=== PATIENT | female | born 1955 | race Caucasian/White ===

== ENCOUNTER 2019-03-28 12:02 | Inpatient (IN) ==
[2019-03-28] MEDS ORDERED: Furosemide 40 MG/4 ML VIAL IVP ONE ×2 (12:20→19:00)
[2019-03-28 12:50] LABS: Basophils % 0.5 %; Eosinophils # 0.1 K/mcL (0.0-0.6); Eosinophils % 1.8 %; Hematocrit 41.8 % (35.3-44.9); Immature Granulocytes % 0.3 % (0-4); Lymphocytes # 0.8 K/mcL (0.6-4.6); Lymphocytes % 12.8 %; Mean Corpuscular HGB Conc 31.1 g/dL (31.6-35.5); Mean Corpuscular Hemoglobin 28.6 pg (28.0-33.3); Mean Corpuscular Volume 92.1 fL (83.0-100.0); Mean Platelet Volume 9.9 fL (9.4-12.4); Monocytes # 0.6 K/mcL (0.0-1.3); Platelet Count 201 K/mcL (140-400); Red Blood Count 4.54 M/mcL (3.82-4.97); Red Cell Distribution Width 13.9 % (11.5-14.5); Segmented Neutrophils % 75.6 %; White Blood Count 6.6 K/mcL (4.3-11.1)
[2019-03-28 13:02] LABS: INR 1.8; Prothrombin Time 20.5 Seconds (9.4-12.1)
[2019-03-28 13:05] LABS: Activated Partial Thrombo Time 37.7 Seconds (26.0-36.0)
--- NOTE | 2019-03-28 13:07 | Emergency Department Note ---
Disposition Clinical Impression: CHF exacerbation Qualifiers: Heart failure type: unspecified Qualified Code(s): I50.9 - Heart failure, unspecified Disposition: Admitted As Inpatient Condition: Good Time of Disposition: 13:44 General Adult HPI - General Chief complaint: ED Shortness of Breath/Dyspnea Stated complaint: "CHF" Time Seen by Provider: 03/28/19 12:16 Source: patient Mode of arrival: private vehicle Limitations: no limitations Nursing Notes Reviewed: Yes Vital Signs Reviewed: Yes - History of Present Illness HPI Narrative: 63-year-old female with a past medical history of mitral valve replacement, congestive heart failure, diabetes that reports a 30 pound weight gain in the last 6 weeks. She was seen at her primary care physician's office who sent her here for further treatment. Patient states she feels very swollen and very short of breath, she cannot lie down at all. She states that it worked for her helping her she would not be able to get up and walk around. She notes that this all started when they switched her from Eliquis to warfarin approximate 6 weeks ago. Patient also notes that she has significant swelling from her abdomen all the way down to her calves. She states that she used to h ave significant swelling in her ankles however the 120 mg of Lasix she takes per day has helped with the swelling in her ankles but nowhere else. She also notes that she has had more swelling on the right side than the left side this is chronic for her. She also reports chills all summer. Pain Scale: 10 - Related Data Home Medications Medication Instructions Recorded Confirmed Apixaban [Eliquis] 5 mg PO BID 03/22/19 03/22/19 Atorvastatin [Lipitor] 20 mg PO HS 03/22/19 03/22/19 Bumetanide [Bumex] 1 mg PO NOW 03/22/19 03/22/19 Furosemide [Lasix] 40 mg PO BID 03/22/19 03/22/19 Lisinopril [Zestril] 10 mg PO DAILY 03/22/19 03/22/19 Pioglitazone [Actos] 30 mg PO DAILY 03/22/19 03/22/19 Allergies Allergy/AdvReac Type Severity Reaction Status Date / Time aspirin Allergy See Verified 10/23/16 14:22 Comments cephalexin [From Keflex] Allergy Hives Verified 10/23/16 17:30 soy AdvReac Diarrhea Verified 10/23/16 15:50 Review of Systems: In addition to that documented in the HPI above, the additional ROS was obtained: Constitutional: Denies fevers or chills Eyes: Denies vision changes ENMT: Denies sore throat CV: Denies chest pain now or before Resp: Reports significant SOB GI: Denies vomiting or diarrhea : Denies painful urination MSK: Denies recent trauma Skin: Denies new rashes Neuro: Denies new numbness or tingling or weakness Endocrine: Denies unexpected weight loss Reports 30lbs weight gain Heme: Denies bleeding disorders Past Medical History - Past Medical History Medical history: Reports: arthritis, cardiomyopathy, CHF, COPD, diabetes, hypertension Surgical history: Reports: heart valve replacement (Mitral valve replacement and tricuspid repair 10/05/2016, [place]), pacemaker/AICD Psychiatric history: Reports: no psych history ROLL THREADER OPERATOR history: Reports: no 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 Appears anxious, breathing shallow, but saturation is acceptable in upper 90s. Well developed, well nourished. Head: atraumatic, normocephalic. ENT: No conjunctival injection, no scleral icterus. PERRLA. EOMI. Oropharynx non- erythematous. mucous membranes moist. Neuro: No focal deficits, no speech deficit, no facial droop, mentating well. BUE/BLE Str 5/5. Pulm: Lungs CTAB A/P. No wheezes, rales, ronchi. Cardio: Tachycardic. Chest not tender to palpation. Abd: Soft, with some areas in the RLQ/LLQ/Suprapubic area that have thickened skin but non-surgical abdomen. Bilateral lower abdomen swelling, right more than left, which she states is chronic. She denies any specific abdominal pain. Extremities: Radial pulses 2+ luisito, bilateral lower extremity swelling to level of hips 3+ pitting edema which spares the ankles. Skin: Her skin is diffiusely dry with flaking. There are two areas of blistering on her lateral left lower leg with serous fluid contained under a layer of epithelium. There are several abrasions over her luisito lower extremities. No active bleeding. No evidence of infection. Psych: Appropriate mood and affect. Answers questions appropriately. Cooperative with exam. - General Limitations: no limitations General appearance: alert, in no apparent distress Course Vital Signs Temperature 97.5 F L 03/28/19 12:12 Pulse Rate 106 03/28/19 12:12 Respiratory Rate 22 03/28/19 12:12 Blood Pressure 110/69 03/28/19 12:12 O2 Sat by Pulse Oximetry 97 03/28/19 12:12 Temperature 97.5 F L 03/28/19 12:12 Pulse Rate 96 03/28/19 14:04 Respiratory Rate 20 03/28/19 14:04 Blood Pressure 111/64 03/28/19 14:04 O2 Sat by Pulse Oximetry 98 03/28/19 14:04 Oxygen Delivery Oxygen Delivery Room Air Medical Decision Making - MDM Narrative Medical decision making narrative: 63F with Pmhx of CHF, mitral valve replacement, on warfarin that complains of 30lb weight gain over the last 6 weeks and diffuse swelling. She was sent from PCP to be admitted as she is on maximal outpatient therapy with 120mg of PO lasix per day. Will obtain labs, give IV lasix, and admit to hospitalist for diuresis therapy. Patient was admitted to the hospitalist Dr. Grace, who agreed to accept the patient to his service. Patient was given 40 mg of IV Lasix. Patient's troponin was negative. Chest x-ray was consistent with congestive heart failure. BNP remained elevated in the 700s. Kidney function was around baseline. Results of the workup including any imaging and/or labwork was shared with the patient at bedside. Patient was given an opportunity to ask questions at bedside and all of their concerns were addressed. Patient verbalized understanding and agreement with plan of care. Pt remained stable while in the department. - Medical Records Medical records reviewed: Yes I reviewed the patient's medical records. - Lab Data Lab results reviewed: Yes I reviewed the patient's lab results. Result diagrams: 03/28/19 12:38 03/28/19 12:38 Lab Results 03/28/19 03/28/19 03/28/19 Range/Units 12:38 12:38 12:38 WBC 6.6 (4.3-11.1) K/mcL RBC 4.54 (3.82-4.97) M/mcL Hgb 13.0 (11.5-15.4) g/dL Hct 41.8 (35.3-44.9) % MCV 92.1 (83.0-100.0) fL MCH 28.6 (28.0-33.3) pg MCHC 31.1 L (31.6-35.5) g/dL RDW 13.9 (11.5-14.5) % Plt Count 201 (140-400) K/mcL MPV 9.9 (9.4-12.4) fL Immature Gran % 0.3 (0-4) % Seg Neutrophils % 75.6 % Lymphocytes % 12.8 % Monocytes % 9.0 % Eosinophils % 1.8 % Basophils % 0.5 % Neutrophils # 5.0 (1.6-8.9) K/mcL Lymphocytes # 0.8 (0.6-4.6) K/mcL Monocytes # 0.6 (0.0-1.3) K/mcL Eosinophils # 0.1 (0.0-0.6) K/mcL Basophils # 0.0 (0.0-0.2) K/mcL PT 20.5 H (9.4-12.1) Seconds INR 1.8 APTT 37.7 H (26.0-36.0) Seconds Sodium (136-145) mEq/L Potassium (3.5-5.1) mEq/L Chloride (98-107) mEq/L Carbon Dioxide (23-29) mEq/L BUN (8-23) mg/dL Creatinine (0.60-1.20) mg/dL Est GFR ( Amer) (> 60) Est GFR (Non-Af Amer) (> 60) BUN/Creatinine Ratio (6-26) Glucose (70-105) mg/dL Calculated Osmolality (280-300) Calcium (8.6-10.3) mg/dL Total Bilirubin (0.3-1.0) mg/dL Direct Bilirubin (0.0-0.2) mg/dL Indirect Bilirubin (0.0-1.2) mg/dL AST (13-39) Units/L ALT (7-52) Units/L Alkaline Phosphatase (34-104) Units/L Troponin I (< 0.04) ng/mL B-Natriuretic Peptide 727 H (Less than 100) pg/mL Serum Total Protein (6.4-8.9) g/dL Albumin (3.5-5.7) g/dL Globulin (2.4-3.5) g/dL Albumin/Globulin Ratio (1.1-2.2) Lipase (11-82) Units/L 03/28/19 Range/Units 12:38 WBC (4.3-11.1) K/mcL RBC (3.82-4.97) M/mcL Hgb (11.5-15.4) g/dL Hct (35.3-44.9) % MCV (83.0-100.0) fL MCH (28.0-33.3) pg MCHC (31.6-35.5) g/dL RDW (11.5-14.5) % Plt Count (140-400) K/mcL MPV (9.4-12.4) fL Immature Gran % (0-4) % Seg Neutrophils % % Lymphocytes % % Monocytes % % Eosinophils % % Basophils % % Neutrophils # (1.6-8.9) K/mcL Lymphocytes # (0.6-4.6) K/mcL Monocytes # (0.0-1.3) K/mcL Eosinophils # (0.0-0.6) K/mcL Basophils # (0.0-0.2) K/mcL PT (9.4-12.1) Seconds INR APTT (26.0-36.0) Seconds Sodium 136 (136-145) mEq/L Potassium 3.8 (3.5-5.1) mEq/L Chloride 97 L (98-107) mEq/L Carbon Dioxide 30 H (23-29) mEq/L BUN 18 (8-23) mg/dL Creatinine 1.53 H (0.60-1.20) mg/dL Est GFR ( Amer) 42 L (> 60) Est GFR (Non-Af Amer) 35 L (> 60) BUN/Creatinine Ratio 12 (6-26) Glucose 270 H (70-105) mg/dL Calculated Osmolality 293 (280-300) Calcium 9.2 (8.6-10.3) mg/dL Total Bilirubin 0.9 (0.3-1.0) mg/dL Direct Bilirubin 0.3 H (0.0-0.2) mg/dL Indirect Bilirubin 0.6 (0.0-1.2) mg/dL AST 14 (13-39) Units/L ALT 8 (7-52) Units/L Alkaline Phosphatase 126 H (34-104) Units/L Troponin I 0.03 (< 0.04) ng/mL B-Natriuretic Peptide (Less than 100) pg/mL Serum Total Protein 6.6 (6.4-8.9) g/dL Albumin 3.7 (3.5-5.7) g/dL Globulin 2.9 (2.4-3.5) g/dL Albumin/Globulin Ratio 1.3 (1.1-2.2) Lipase 30 (11-82) Units/L - Radiology Data Radiology results reviewed: Yes I reviewed the patient's radiology results. Chest X-Ray 03/28/19 12:20 IMPRESSION: Limited low lung volume portable chest x-ray demonstrating bibasilar airspace opacity, most likely atelectasis. No acute process demonstrated otherwise. D/ / Milton Fu MD / Milton Fu MD Interpreting Provider: Milton Fu MD - EKG Data EKG #1 EKG attestation: Yes I reviewed and interpreted this EKG. EKG results narrative: Heart rate 103, rhythm sinus tachycardia, axis left. He had 146, QRS 168 and prolonged, QTC 519 and prolonged. RSR pattern noted in lead V1 and V2 and with prolonged QRS this is consistent with a right bundle branch block. No cl inically significant ST elevation or depression by sgarbosa's criteria. When compared with previous EKG dated 03/22/2019 there are no significant changes.
[2019-03-28 13:14] LABS: Troponin I 0.03 ng/mL (< 0.04)
[2019-03-28 13:15] LABS: Albumin 3.7 g/dL (3.5-5.7); Albumin/Globulin Ratio 1.3 (1.1-2.2); Bilirubin,Direct 0.3 mg/dL (0.0-0.2); Bilirubin,Indirect 0.6 mg/dL (0.0-1.2); Bilirubin,Total 0.9 mg/dL (0.3-1.0); Calcium 9.2 mg/dL (8.6-10.3); Globulin 2.9 g/dL (2.4-3.5); Potassium 3.8 mEq/L (3.5-5.1); Total Protein 6.6 g/dL (6.4-8.9)
[2019-03-28] MEDS ORDERED: *HR* Promethazine 25 MG/ML VIAL IVP PRN (14:03)
[2019-03-28] MEDS ORDERED: Ondansetron ODT 4 MG TAB.RAPDIS SL PRN (14:03)
[2019-03-28] MEDS ORDERED: Naloxone 0.4 MG/ML INJ IVP PRN (14:03)
--- NOTE | 2019-03-28 14:07 | Emergency Department Note ---
Disposition Clinical Impression: CHF exacerbation Qualifiers: Heart failure type: unspecified Qualified Code(s): I50.9 - Heart failure, unspecified Disposition: Admitted As Inpatient Condition: Good Time of Disposition: 14:07 General Adult HPI - General Chief complaint: ED Shortness of Breath/Dyspnea Stated complaint: "CHF" Time Seen by Provider: 03/28/19 12:16 Source: patient Mode of arrival: private vehicle Limitations: no limitations - History of Present Illness Pain Scale: 0 - Related Data Home Medications Medication Instructions Recorded Confirmed Apixaban [Eliquis] 5 mg PO BID 03/22/19 03/22/19 Atorvastatin [Lipitor] 20 mg PO HS 03/22/19 03/22/19 Bumetanide [Bumex] 1 mg PO NOW 03/22/19 03/22/19 Furosemide [Lasix] 40 mg PO BID 03/22/19 03/22/19 Lisinopril [Zestril] 10 mg PO DAILY 03/22/19 03/22/19 Pioglitazone [Actos] 30 mg PO DAILY 03/22/19 03/22/19 Allergies Allergy/AdvReac Type Severity Reaction Status Date / Time aspirin Allergy See Verified 10/23/16 14:22 Comments cephalexin [From Keflex] Allergy Hives Verified 10/23/16 17:30 soy AdvReac Diarrhea Verified 10/23/16 15:50 Past Medical History - Past Medical History Medical history: Reports: arthritis, cardiomyopathy, CHF, COPD, diabetes, hypertension Surgical history: Reports: heart valve replacement (Mitral valve replacement and tricuspid repair 10/05/2016, [place]), pacemaker/AICD Psychiatric history: Reports: no psych history EQUESTRIAN TRAINER history: Reports: no EQUESTRIAN TRAINER history - Social History Smoking Status: Never smoker Smokeless Tobacco Status: No Alcohol use: Reports: none Drug use: Reports: none Physical Exam - General Limitations: no limitations General appearance: alert, in no apparent distress Course Vital Signs Temperature 97.5 F L 03/28/19 12:12 Pulse Rate 106 03/28/19 12:12 Respiratory Rate 22 03/28/19 12:12 Blood Pressure 110/69 03/28/19 12:12 O2 Sat by Pulse Oximetry 97 03/28/19 12:12 Temperature 97.5 F L 03/28/19 12:12 Pulse Rate 96 03/28/19 14:04 Respiratory Rate 20 03/28/19 14:04 Blood Pressure 111/64 03/28/19 14:04 O2 Sat by Pulse Oximetry 98 03/28/19 14:04 Oxygen Delivery Oxygen Delivery Room Air Medical Decision Making - Lab Data Result diagrams: 03/28/19 12:38 03/28/19 12:38 Lab Results 03/28/19 03/28/19 03/28/19 Range/Units 12:38 12:38 12:38 WBC 6.6 (4.3-11.1) K/mcL RBC 4.54 (3.82-4.97) M/mcL Hgb 13.0 (11.5-15.4) g/dL Hct 41.8 (35.3-44.9) % MCV 92.1 (83.0-100.0) fL MCH 28.6 (28.0-33.3) pg MCHC 31.1 L (31.6-35.5) g/dL RDW 13.9 (11.5-14.5) % Plt Count 201 (140-400) K/mcL MPV 9.9 (9.4-12.4) fL Immature Gran % 0.3 (0-4) % Seg Neutrophils % 75.6 % Lymphocytes % 12.8 % Monocytes % 9.0 % Eosinophils % 1.8 % Basophils % 0.5 % Neutrophils # 5.0 (1.6-8.9) K/mcL Lymphocytes # 0.8 (0.6-4.6) K/mcL Monocytes # 0.6 (0.0-1.3) K/mcL Eosinophils # 0.1 (0.0-0.6) K/mcL Basophils # 0.0 (0.0-0.2) K/mcL PT 20.5 H (9.4-12.1) Seconds INR 1.8 APTT 37.7 H (26.0-36.0) Seconds Sodium (136-145) mEq/L Potassium (3.5-5.1) mEq/L Chloride (98-107) mEq/L Carbon Dioxide (23-29) mEq/L BUN (8-23) mg/dL Creatinine (0.60-1.20) mg/dL Est GFR ( Amer) (> 60) Est GFR (Non-Af Amer) (> 60) BUN/Creatinine Ratio (6-26) Glucose (70-105) mg/dL Calculated Osmolality (280-300) Calcium (8.6-10.3) mg/dL Total Bilirubin (0.3-1.0) mg/dL Direct Bilirubin (0.0-0.2) mg/dL Indirect Bilirubin (0.0-1.2) mg/dL AST (13-39) Units/L ALT (7-52) Units/L Alkaline Phosphatase (34-104) Units/L Troponin I (< 0.04) ng/mL B-Natriuretic Peptide 727 H (Less than 100) pg/mL Serum Total Protein (6.4-8.9) g/dL Albumin (3.5-5.7) g/dL Globulin (2.4-3.5) g/dL Albumin/Globulin Ratio (1.1-2.2) Lipase (11-82) Units/L 03/28/19 Range/Units 12:38 WBC (4.3-11.1) K/mcL RBC (3.82-4.97) M/mcL Hgb (11.5-15.4) g/dL Hct (35.3-44.9) % MCV (83.0-100.0) fL MCH (28.0-33.3) pg MCHC (31.6-35.5) g/dL RDW (11.5-14.5) % Plt Count (140-400) K/mcL MPV (9.4-12.4) fL Immature Gran % (0-4) % Seg Neutrophils % % Lymphocytes % % Monocytes % % Eosinophils % % Basophils % % Neutrophils # (1.6-8.9) K/mcL Lymphocytes # (0.6-4.6) K/mcL Monocytes # (0.0-1.3) K/mcL Eosinophils # (0.0-0.6) K/mcL Basophils # (0.0-0.2) K/mcL PT (9.4-12.1) Seconds INR APTT (26.0-36.0) Seconds Sodium 136 (136-145) mEq/L Potassium 3.8 (3.5-5.1) mEq/L Chloride 97 L (98-107) mEq/L Carbon Dioxide 30 H (23-29) mEq/L BUN 18 (8-23) mg/dL Creatinine 1.53 H (0.60-1.20) mg/dL Est GFR ( Amer) 42 L (> 60) Est GFR (Non-Af Amer) 35 L (> 60) BUN/Creatinine Ratio 12 (6-26) Glucose 270 H (70-105) mg/dL Calculated Osmolality 293 (280-300) Calcium 9.2 (8.6-10.3) mg/dL Total Bilirubin 0.9 (0.3-1.0) mg/dL Direct Bilirubin 0.3 H (0.0-0.2) mg/dL Indirect Bilirubin 0.6 (0.0-1.2) mg/dL AST 14 (13-39) Units/L ALT 8 (7-52) Units/L Alkaline Phosphatase 126 H (34-104) Units/L Troponin I 0.03 (< 0.04) ng/mL B-Natriuretic Peptide (Less than 100) pg/mL Serum Total Protein 6.6 (6.4-8.9) g/dL Albumin 3.7 (3.5-5.7) g/dL Globulin 2.9 (2.4-3.5) g/dL Albumin/Globulin Ratio 1.3 (1.1-2.2) Lipase 30 (11-82) Units/L Attestation Statement - Attestation Attestation: I reviewed the residents documentation and agree with the residents assessment and plan of care. I have personally had face to face time with the patient. (Brief History, Brief Exam, and MDM) I personally supervised and was present for the argueta/critical portions of the following procedures completed by the resident: EKG 63 year old female present to the eD with complaints to CHF and state that her oral lasix therapy is not working. She does have a baseline elevation to her BNP and appaers to be fluid overloaded. She however is not hypoxic. We will admit for IV lasix therpay and admission tto medicine.
[2019-03-28] MEDS ORDERED: *HR* Dextrose 50 % in Water (Syg) 50 ML SYRINGE IVP PRN (16:03)
[2019-03-28] MEDS ORDERED: Dextrose Gel 15 GM/37.5 ML TUBE PO PRN ×2 (16:03)
[2019-03-28] MEDS ORDERED: D5% in Water 1,000 ML IVC PRN (16:03)
--- NOTE | 2019-03-28 16:08 | Internal Med History&Physical ---
<Richard Best R - Last Filed: 03/28/19 17:54> Date of Encounter: 03/28/19 Time of Encounter: 15:50 Internal Medicine - H&P: HPI Chief complaint: SOB Admitted From: Home History of present illness: Ms. Arteaga is a 63 year old female presented to the Emergency room with SOB, Orthopnea and fluid retention. Patient reports 30 lbs weight gain since she was changed to warfarin 6 weeks ago. Changed to warfarin from eliquis at that time due to cost. However, patient expressed concerns for fluid retention and placed back on eliquis 2 weeks ago. On anticoagulation for history of mitral valve replacement and tricuspid repair. Reports swelling in her abdomen down to her ankles. Repors orthopnea, SOB. Has been on 120 mg PO Lasixs, and 1 mg bumex PO with little improvement. Reported feeling a chill all summer. Denies Fever, chest pain, cough, Nausea, vomiting, constipation, dysuria, light headedness, painful extremities. Doesn't follow a fluid restrictive diet or salt restricive diet, Ate an encore dinner last night. History of diabetes and refuses to take insulin because it makes here feel nauseous. History CHF with AICD in place, also has a history of COPD but is a non-smoker and does not use any home inhalers or oxygen. Past Med Surg Social Fam HX - Past Medical History Attestation: Yes The following information was validated with the patient. Source: patient, old records reviewed, nursing notes reviewed Medical history: arthritis, cardiomyopathy, CHF, COPD, diabetes, hypertension, myocardial infarction, pulmonary embolus, valvular heart disease (mitral valve replacement ) Additional medical history: nueropathy,arrythimia, Psychiatric history: no psych history - Past Surgical History Surgical History: heart valve replacement (Mitral valve replacement and tricuspid repair 10/05/2016, [place]), pacemaker/AICD Additional surgical history: defibrillator, 2017 mitral valve replaced and tricuspid repair - Social History Smoking Status: Never smoker Smokeless Tobacco Status: No Alcohol use: none Drug use: none Activity Level: Uses cane/walker Internal Medicine - H&P: Meds Apixaban [Eliquis] 5 mg PO BID 03/22/19 [History] Atorvastatin [Lipitor] 20 mg PO HS 03/22/19 [History] Bumetanide [Bumex] 1 mg PO NOW 03/22/19 [History] Furosemide [Lasix] 40 mg PO BID 03/22/19 [History] Lisinopril [Zestril] 10 mg PO DAILY 03/22/19 [History] Pioglitazone [Actos] 30 mg PO DAILY 03/22/19 [History] Allergy/AdvReac Type Severity Reaction Status Date / Time cephalexin [From Keflex] Allergy Hives Verified 03/28/19 18:43 Warfarin Allergy See Verified 03/28/19 18:43 Comments aspirin AdvReac Nose Bleed Verified 03/28/19 18:43 All Systems PM: A 10-system review of systems was performed and is negative for pertinent findings except as documented above in the HPI. - Constitutional Constitutional: chills, no fever(s) - EENT Eyes: no blurry vision, no change in vision - Cardiovascular Cardiovascular ROS IM: dyspnea, orthopnea, no chest pain - Respiratory Respiratory: dyspnea, no cough, no wheezing - Gastrointestinal Gastrointestinal: no abdominal pain, no constipation, no diarrhea, no nausea, no vomiting - Genitourinary Genitourinary: no difficulty urinating - Musculoskeletal Musculoskeletal ROS IM: numbness - Integumentary Integumentary IM: skin ulcer - Neurological Neurological ROS: numbness, no weakness - Psychiatric Psychiatric: no anxiety - Endocrine Endocrine IM: no excessive sweating - Hematologic/Lymphatic Hematologic/Lymphatic: no easy bleeding, no easy bruising - Allergic/Immunologic Allergic/Immunologic: no tongue swelling, no itchy eyes - Constitutional Vitals: Temp Pulse Resp BP Pulse Ox 97.9 F 103 18 106/75 96 03/28/19 15:58 03/28/19 15:58 03/28/19 15:58 03/28/19 15:58 03/28/19 15:58 Exam: Gen: AOx3 in no acute distress Eyes: ROBERT, EOMI with no conjunctivitis Throat: Moist mucous membranes, no pharyngeal erythema or tonsilar exudate CV: Tachycardic with regular rhythmn. No murmurs Resp: CTA in all lung rios with no crackles or rhales GI: Soft, non-surgical abdomen. Morbid obesity, with increased edema. No organomegally, or masses palpated. Neuro: CN II-XII intact with no focal deficits Ext: 3+ luisito LE edema. DP 2/4 luisito Derm: Has fungal infection under abdominal tissue. Stasis Ulcers in luisito lateral shins. Internal Med - H&P Results - Labs CBC & Chem 7: 03/28/19 12:38 03/28/19 12:38 Labs: Short CBC 03/28/19 Range/Units 12:38 WBC 6.6 (4.3-11.1) K/mcL Hgb 13.0 (11.5-15.4) g/dL Hct 41.8 (35.3-44.9) % Plt Count 201 (140-400) K/mcL Neutrophils # 5.0 (1.6-8.9) K/mcL BMP 03/28/19 12:38 Sodium 136 Potassium 3.8 Chloride 97 L Carbon Dioxide 30 H BUN 18 Creatinine 1.53 H Glucose 270 H Calcium 9.2 Cardiac Enzymes 03/28/19 Range/Units 12:38 Troponin I 0.03 (< 0.04) ng/mL Liver Function 03/28/19 Range/Units 12:38 Total Bilirubin 0.9 (0.3-1.0) mg/dL Direct Bilirubin 0.3 H (0.0-0.2) mg/dL AST 14 (13-39) Units/L ALT 8 (7-52) Units/L Alkaline Phosphatase 126 H (34-104) Units/L Albumin 3.7 (3.5-5.7) g/dL - Impressions ITS Impressions Chest X-Ray 03/28/19 12:20 IMPRESSION: Limited low lung volume portable chest x-ray demonstrating bibasilar airspace opacity, most likely atelectasis. No acute process demonstrated otherwise. D/ / Milton Fu MD / Milton Fu MD Interpreting Provider: Milton Fu MD - Assessment and Plan (1) CHF exacerbation Current Visit: Yes Status: Acute Assessment and plan: - Increased SOB, orthopnea, and fluid retention at admission -Previous diagnosis of CHF in 2012, diabetes, HTN, HLD - Takes lasix, atorvastatin, and lisinopril -Mitral Valve replacement in 2016 - Stress test in 2017 showed EF 35%, large sized infarct in the inferior and inferiolateral wall, LV severly dilated - Chest X ray 03/28 limited low lung volume portable chest x-ray demonstrating bibasilar airspace opacity, most likely atelectasis. No acute process demonstrated otherwise - BNP 727 on 03/28 Plan: -Start IV Lasixs -Echocardiogram scheduled for tomorrow - Cont home lasix. May need to stop if creatinine rises -Strict I/O -Cardiac diet - Fluid restrcitive diet to 1.5 L -Can assess need for Beta [facility] prior to discharge Qualifiers: Heart failure type: unspecified Qualified Code(s): I50.9 - Heart failure, unspecified (2) CULLEN (acute kidney injury) Current Visit: Yes Status: Acute Assessment and plan: -Creatinine 1.53 and eGFR 35 today up from 1.41 in 11/03 - Increased fluid retention in Luisito LE and abdomen - Takes 120 mg Lasixs and 1 mg bumex PO at home - Nephrology consulted Plan -Urine electrolytes ordered - Start IV Lasix as above, however may need to stop if worsening creatinine and urine output - Renally dose medicationa and avoid nephrotoxic medications when possible (3) Diabetes Current Visit: Yes Status: Acute Assessment and plan: - Chronic Diabetes on pioglitazone - POC 270 on 03/28 Plan - Stop pioglitazone, - start insulin Qualifiers: Diabetes mellitus type: type 2 Qualified Code(s): E11.9 - Type 2 diabetes mellitus without complications (4) HLD (hyperlipidemia) Current Visit: Yes Status: Acute Assessment and plan: - Cont home lipitor Qualifiers: Hyperlipidemia type: unspecified Qualified Code(s): E78.5 - Hyperlipidemia, unspecified (5) HTN (hypertension) Current Visit: Yes Status: Acute Assessment and plan: - Chronic HTN on lisinopril and lasix Plan - Cont Lisinopril, may need to discontinue if creatinine rises - Cont IV lasix Qualifiers: Hypertension type: unspecified Qualified Code(s): I10 - Essential (primary) hypertension (6) Mitral valve replaced Current Visit: Yes Status: Acute Assessment and plan: - Mitral valve replacement and tricuspid repair in 2017 Plan: -Cont Eliquis (7) DVT prophylaxis Current Visit: Yes Status: Acute Assessment and plan: Eliquis - Time Spent With Patient Total time spent is greater than 50% in coordination of care (as documented) at patient's floor/unit and/or counseling patient: <Maddy Mar - Last Filed: 03/28/19 18:45> Date of Encounter: 03/28/19 Internal Medicine - H&P: HPI History of present illness: Ms. Arteaga is a 63 year old female All Systems PM: A 10-system review of systems was performed and is negative for pertinent findings except as documented above in the HPI. - Constitutional Vitals: Temp Pulse Resp BP Pulse Ox 97.9 F 103 18 106/75 96 03/28/19 15:58 03/28/19 15:58 03/28/19 15:58 03/28/19 15:58 03/28/19 15:58 Internal Med - H&P Results - Labs CBC & Chem 7: 03/28/19 12:38 03/28/19 12:38 Labs: Short CBC 03/28/19 Range/Units 12:38 WBC 6.6 (4.3-11.1) K/mcL Hgb 13.0 (11.5-15.4) g/dL Hct 41.8 (35.3-44.9) % Plt Count 201 (140-400) K/mcL Neutrophils # 5.0 (1.6-8.9) K/mcL BMP 03/28/19 12:38 Sodium 136 Potassium 3.8 Chloride 97 L Carbon Dioxide 30 H BUN 18 Creatinine 1.53 H Glucose 270 H Calcium 9.2 Cardiac Enzymes 03/28/19 Range/Units 12:38 Troponin I 0.03 (< 0.04) ng/mL Liver Function 03/28/19 Range/Units 12:38 Total Bilirubin 0.9 (0.3-1.0) mg/dL Direct Bilirubin 0.3 H (0.0-0.2) mg/dL AST 14 (13-39) Units/L ALT 8 (7-52) Units/L Alkaline Phosphatase 126 H (34-104) Units/L Albumin 3.7 (3.5-5.7) g/dL - Impressions ITS Impressions Chest X-Ray 03/28/19 12:20 IMPRESSION: Limited low lung volume portable chest x-ray demonstrating bibasilar airspace opacity, most likely atelectasis. No acute process demonstrated otherwise. D/ / Milton Fu MD / Milton Fu MD Interpreting Provider: Milton Fu MD - Time Spent With Patient Total time spent is greater than 50% in coordination of care (as documented) at patient's floor/unit and/or counseling patient: - Attending Attestation I saw evaluated and examined this patient and reviewed objective data including labs and my medical decision-making was reviewed with the Resident Physician/Medical Student. I agree with the documented findings, disposition and treatment plan as described except to any changes set forth below. We independently had [id number] contact with the patient.
[2019-03-28] MEDS: Insulin LISPRO 300 UNITS/3 ML VIAL SQ SCH ×2 (17:43→22:31)
[2019-03-28] MEDS: Nystatin POWDER 30 GM BOTTLE TP SCH ×2 (18:02→20:45)
[2019-03-28] MEDS: Apixaban 5 MG TABLET PO SCH (20:43)
[2019-03-28] MEDS ORDERED: Perflutren Lipid Microsphere 1.3 ML in 0.9 % Sodium Chloride 8.7 ML IVP ONE (23:18)
[2019-03-28] MEDS: Melatonin 3 MG TABLET PO SCH (23:28)
[2019-03-29 00:06] LABS: Potassium,Urine 14.4 mEq/L; Sodium, Urine 64.7 mEq/L
[2019-03-29 00:07] LABS: Creatinine,Urine 46 mg/dL; Microalbum/Creatinine Ratio,Ur 46 mcg/mg (Less than 30); Microalbumin,Urine 21 mg/L
[2019-03-29 02:21] LABS: Basophils % 0.4 %; Eosinophils # 0.1 K/mcL (0.0-0.6); Hematocrit 37.3 % (35.3-44.9); Immature Granulocytes % 0.4 % (0-4); Lymphocytes % 19.2 %; Mean Corpuscular HGB Conc 32.2 g/dL (31.6-35.5); Mean Corpuscular Volume 90.1 fL (83.0-100.0); Mean Platelet Volume 9.9 fL (9.4-12.4); Monocytes # 0.6 K/mcL (0.0-1.3); Monocytes % 11.1 %; Neutrophils # 3.3 K/mcL (1.6-8.9); Platelet Count 183 K/mcL (140-400); Red Blood Count 4.14 M/mcL (3.82-4.97); Red Cell Distribution Width 13.7 % (11.5-14.5); Segmented Neutrophils % 66.9 %
[2019-03-29 02:30] LABS: INR 1.8; Prothrombin Time 20.1 Seconds (9.4-12.1)
[2019-03-29 02:43] LABS: Albumin 3.4 g/dL (3.5-5.7); Albumin/Globulin Ratio 1.3 (1.1-2.2); Calcium 9.1 mg/dL (8.6-10.3); Globulin 2.7 g/dL (2.4-3.5); Potassium 3.5 mEq/L (3.5-5.1); Total Protein 6.1 g/dL (6.4-8.9)
[2019-03-29 02:58] LABS: Thyroid Stimulating Hormone 4.001 mcIU/mL (0.340-5.600)
[2019-03-29] MEDS ORDERED: Acetaminophen IV 1,000 MG/100 ML INFUS..BTL IVPB ONE (04:59)
--- NOTE | 2019-03-29 07:35 | Internal Med Progress Note ---
<Richard Best R - Last Filed: 03/29/19 09:30> Hospitalist Progress Note - Encounter Date of Encounter: 03/29/19 Time of Encounter: 08:30 - Subjective Interval History: Patient seen and examined. No acute events reported overnight. Reports still feeling SOB, and having orthopnea. Has noticed some decreased swelling in her abdomen. Deneis any fevers, chills, chest pain, tachycardia, nausea, vomiting, diarrhea, constipation, or dysuria. - Exam Vitals: Temp Pulse Resp BP Pulse Ox 97.5 F L 74 18 110/76 92 03/29/19 07:10 03/29/19 07:10 03/29/19 07:10 03/29/19 07:10 03/29/19 07:10 Exam: Gen: AOx3 Eyes:ROBERT, EOMI with no conjunctivitis Throat: Moist mucous membranes with no oral ulcers or pharyngeal erythema CV: RRR with no murmur. 3+ pitting edema in luisito LE. Abdominal swelling present. Resp: SOB upon sitting up for lung exam. Shallow breath sounds with no wheeze or crackles GI:Soft, non-tender, edematous abdomen. Morbid obesity. No organomegally or masses palpated Neuro: CN II-XII intact with no focal deficits Ext: 3+ pitting edema in luisito LE. DP 2/4 in luisito LE. Derm: Stasis ulcers present on luisito shins. Fungal rash present under abdominal tissue. - Assessment and Plan (1) CHF exacerbation Current Visit: Yes Status: Acute Assessment and Plan: - Increased SOB, orthopnea, and fluid retention at admission -Previous diagnosis of CHF in 2012, diabetes, HTN, HLD - Takes lasix, atorvastatin, and lisinopril -Mitral Valve replacement in 2016 - Stress test in 2017 showed EF 35%, large sized infarct in the inferior and inferiolateral wall, LV severly dilated - Chest X ray 03/28 limited low lung volume portable chest x-ray demonstrating bibasilar airspace opacity, most likely atelectasis. No acute process demonstrated otherwise - BNP 727 on 03/28 - TSH 4 and free T4 1.54 on 03/29 Plan: -Start IV Lasixs -Echocardiogram scheduled for today - Cont IV lasix. May need to stop if creatinine rises -Strict I/O -Cardiac diet - Fluid restrcitive diet to 1.5 L -Can assess need for Beta [facility] prior to discharge (2) CULLEN (acute kidney injury) Current Visit: Yes Status: Acute Assessment and Plan: -Creatinine 1.38 and eGFR 39 today down from 1.53 creatinine 03/28 - Increased fluid retention in Luisito LE and abdomen - Takes 120 mg Lasixs and 1 mg bumex PO at home - Nephrology consulted - Urine electrolyte panel showed urine creatinine 46, urine microalbumin 21, urine Na 64.7, Urine K 14.4, and urine total protein 9 Plan - Cont IV Lasix as above, however may need to stop if worsening creatinine and urine output - Renally dose medicationa and avoid nephrotoxic medications when possible (3) Diabetes Current Visit: Yes Status: Acute Assessment and Plan: - Chronic Diabetes on pioglitazone - POC 142 today Plan - cont insulin (4) HLD (hyperlipidemia) Current Visit: Yes Status: Acute Assessment and Plan: - Cont home lipitor (5) HTN (hypertension) Current Visit: Yes Status: Acute Assessment and Plan: - Chronic HTN on lisinopril and lasix Plan - Cont Lisinopril, may need to discontinue if creatinine rises - Cont IV lasix (6) Mitral valve replaced Current Visit: Yes Status: Acute Assessment and Plan: - Mitral valve replacement and tricuspid repair in 2017 Plan: -Cont Eliquis (7) DVT prophylaxis Current Visit: Yes Status: Acute Assessment and Plan: eliquis DVT Prophylaxis: eliquis - Time Spent with Patient Total time spent is greater than 50% in coordination of care (as documented) at patient's floor/unit and/or counseling patient: Internal Medicine: Result - Labs CBC & Chem 7: 03/29/19 01:47 03/29/19 01:47 Labs: Short CBC 03/28/19 03/29/19 Range/Units 12:38 01:47 WBC 6.6 5.0 (4.3-11.1) K/mcL Hgb 13.0 12.0 (11.5-15.4) g/dL Hct 41.8 37.3 (35.3-44.9) % Plt Count 201 183 (140-400) K/mcL Neutrophils # 5.0 3.3 (1.6-8.9) K/mcL BMP 03/28/19 03/29/19 12:38 01:47 Sodium 136 137 Potassium 3.8 3.5 Chloride 97 L 98 Carbon Dioxide 30 H 29 BUN 18 17 Creatinine 1.53 H 1.38 H Glucose 270 H 151 H Calcium 9.2 9.1 Cardiac Enzymes 03/28/19 03/28/19 03/29/19 Range/Units 12:38 18:57 01:47 Troponin I 0.03 0.03 0.03 (< 0.04) ng/mL Liver Function 03/28/19 03/29/19 Range/Units 12:38 01:47 Total Bilirubin 0.9 1.0 (0.3-1.0) mg/dL Direct Bilirubin 0.3 H (0.0-0.2) mg/dL AST 14 12 L (13-39) Units/L ALT 8 9 (7-52) Units/L Alkaline Phosphatase 126 H 111 H (34-104) Units/L Albumin 3.7 3.4 L (3.5-5.7) g/dL - ABG Interpretation ABG results: PT/INR, D-dimer PT 20.1 Seconds (9.4-12.1) H 03/29/19 01:47 - Impressions Impressions Chest X-Ray 03/28/19 12:20 IMPRESSION: Limited low lung volume portable chest x-ray demonstrating bibasilar airspace opacity, most likely atelectasis. No acute process demonstrated otherwise. D/ / Milton Fu MD / Milton Fu MD Interpreting Provider: Milton Fu MD Consult Discharge Plan - Plan Referrals: Zachary Gutierres DO [Primary Care Provider] - <Maddy Mar - Last Filed: 03/29/19 13:41> Hospitalist Progress Note - Encounter Date of Encounter: 03/29/19 - Exam Vitals: Temp Pulse Resp BP Pulse Ox 98.2 F 106 18 111/78 93 03/29/19 11:05 03/29/19 11:05 03/29/19 11:05 03/29/19 11:05 03/29/19 11:05 - Time Spent with Patient Total time spent is greater than 50% in coordination of care (as documented) at patient's floor/unit and/or counseling patient: Internal Medicine: Result - Labs CBC & Chem 7: 03/29/19 01:47 03/29/19 01:47 Labs: Short CBC 03/29/19 Range/Units 01:47 WBC 5.0 (4.3-11.1) K/mcL Hgb 12.0 (11.5-15.4) g/dL Hct 37.3 (35.3-44.9) % Plt Count 183 (140-400) K/mcL Neutrophils # 3.3 (1.6-8.9) K/mcL BMP 03/29/19 01:47 Sodium 137 Potassium 3.5 Chloride 98 Carbon Dioxide 29 BUN 17 Creatinine 1.38 H Glucose 151 H Calcium 9.1 Cardiac Enzymes 03/28/19 03/29/19 Range/Units 18:57 01:47 Troponin I 0.03 0.03 (< 0.04) ng/mL Liver Function 03/29/19 Range/Units 01:47 Total Bilirubin 1.0 (0.3-1.0) mg/dL AST 12 L (13-39) Units/L ALT 9 (7-52) Units/L Alkaline Phosphatase 111 H (34-104) Units/L Albumin 3.4 L (3.5-5.7) g/dL - ABG Interpretation ABG results: PT/INR, D-dimer PT 20.1 Seconds (9.4-12.1) H 03/29/19 01:47 - Impressions Impressions Echocardiogram 03/28/19 15:58 Impressions: Technically sub-optimal due to poor echocardiographic windows. LVEF 20-25%. Severely dilated left ventricle. Severe global left ventricular systolic dysfunction. Indeterminate diastolic function. There is no LV thrombus. Atypical septal motion consistent with bundle branch block. Right ventricle was not well visualized. Grossly, it is mildly dilated with mildly reduced function. Mild-moderate tricuspid regurgitation. Mild pulmonary hypertension. A device lead was visualized in the right atrium and right ventricle. Left Ventricular Wall Motion: Rest Echo Findings The apex, apical inferior, mid inferior, basal inferior, apical anterior, mid anterior, basal anterior, apical septal, mid inferior septal, basal inferior septal, apical lateral, mid anterior lateral, basal anterior lateral, mid anterior septal, mid inferior lateral, basal anterior septal and basal inferior lateral watkins were hypokinetic. Findings: Study Quality * Technically sub-optimal due to poor echocardiographic windows. ECG Findings * Difficult to determine rhythm. Bundle branch block noted. Left Ventricle * LVEF 20-25%. * Severely dilated left ventricle. * Severe global left ventricular systolic dysfunction. * Indeterminate diastolic function. * There is no LV thrombus. * Atypical septal motion consistent with bundle branch block. Right Ventricle * Right ventricle was not well visualized. Grossly, it is mildly dilated with mildly reduced function. Left Atrium * Moderately dilated left atrium. Right Atrium * Normal right atrial size. Interatrial Septum * Interatrial septum not well evaluated. Aortic Valve * Aortic valve not well visualized. * No aortic regurgitation. * No aortic stenosis. Mitral Valve * Mild mitral annular calcification and subvalvular apparatus. * No mitral regurgitation. * No mitral stenosis. Tricuspid Valve * Normal tricuspid valve structure. * Mild-moderate tricuspid regurgitation. * Mild pulmonary hypertension. Pulmonic Valve * Pulmonic valve is not well visualized. Aorta * Normally sized aortic root. Pericardium * The pericardium appears normal. IVC * The IVC is not well evaluated. Pulmonary Artery * Pulmonary artery not well visualized. Device lead * A device lead was visualized in the right atrium and right ventricle. - Attending Attestation I saw evaluated and examined this patient and reviewed objective data including labs and my medical decision-making was reviewed with the Resident Physici an/Medical Student. I agree with the documented findings, disposition and treatment plan as described except to any changes set forth below. We independently had [id number] contact with the patient. Patient states she did notice a little improvement in body swelling. She is still short of breath however, and is having trouble sitting up for my evaluation. She denies CP. VS: reviewed. Labs: reviewed. Patient is in no acute distress, limits exam because her swelling is bothering her. Anasarca is noted with edema extending up to abdomen, slightly softer than exam yesterday. 1. CHF Exacerbation 2. CKD 3. IDDM 4. HTN 5. MVP 6. COPD 7. History of PE 8. Cardiomyopathy - Continue IV Lasix BID, appreciate Nephrology recommendations. - Strict I/Os - Fluid restricted diet - Echocardiogram pending. Anticipate patient will be here > 2 midnights due to IV diuresis. <JohnRichard shelton R - Last Filed: 03/29/19 09:30> (1) CHF exacerbation Qualifiers: Heart failure type: unspecified Qualified Code(s): I50.9 - Heart failure, unspecified (3) Diabetes Qualifiers: Diabetes mellitus type: type 2 Qualified Code(s): E11.9 - Type 2 diabetes mellitus without complications (4) HLD (hyperlipidemia) Qualifiers: Hyperlipidemia type: unspecified Qualified Code(s): E78.5 - Hyperlipidemia, unspecified (5) HTN (hypertension) Qualifiers: Hypertension type: unspecified Qualified Code(s): I10 - Essential (primary) hypertension
[2019-03-29] MEDS: Insulin LISPRO 300 UNITS/3 ML VIAL SQ SCH ×4 (08:26→20:52)
[2019-03-29] MEDS: Nystatin POWDER 30 GM BOTTLE TP SCH ×3 (08:27→20:53)
[2019-03-29] MEDS: Apixaban 5 MG TABLET PO SCH ×2 (08:27→20:41)
[2019-03-29] MEDS ORDERED: Acetaminophen 325 MG TABLET PO PRN (09:28)
[2019-03-29] MEDS ORDERED: Furosemide 40 MG/4 ML VIAL IVP SCH (10:47)
--- NOTE | 2019-03-29 10:57 | Nephrology Consult Note ---
Date of Encounter: 03/29/19 Time of Encounter: 10:55 Assessment and Plan (1) CULLEN (acute kidney injury) Current Visit: Yes Status: Acute Scr 1,38, GFR 39-improving already Will proceed with CULLEN workout to include UA, urine culture, urine eosinophils, CPK, serum uric acid, and renal ultrasound. Need strict I/Os (2) CHF exacerbation Current Visit: Yes Status: Acute per primary team Qualifiers: Heart failure type: unspecified Qualified Code(s): I50.9 - Heart failure, unspecified (3) Diabetes Current Visit: Yes Status: Acute Recommend patient have better control of her diabetes per primary team Qualifiers: Diabetes mellitus type: type 2 Qualified Code(s): E11.9 - Type 2 diabetes mellitus without complications History of Present Illness - Reason for Consult Consult date: 03/29/19 - Chief Complaint CULLEN, DM - History of Present Illness Ms. Arteaga is a 63 year old female with PMH of COPD, DM, CHF with AICD in place, admitted for SOB, Orthopnea and fluid retention. Patient reports 30 lbs weight gain since she was changed to warfarin 6 weeks ago. Changed to warfarin from eliquis at that time due to cost. However, patient expressed concerns for fluid retention and placed back on eliquis 2 weeks ago. On anticoagulation for history of mitral valve replacement and tricuspid repair. Reports swelling in her abdomen down to her ankles. Repors orthopnea, SOB. Has been on 120 mg PO Lasixs, and 1 mg bumex PO with little improvement. Doesn't follow a fluid restrictive diet or salt restricive diet. History of diabetes and refuses to take insulin because it makes here feel nauseous. Patient developed an CULLEN and nephrology has been consulted. Past Med Surg Social Fam HX - Past Medical History Medical history: arthritis, cardiomyopathy, CHF, COPD, diabetes, hypertension, myocardial infarction, pulmonary embolus, valvular heart disease (mitral valve replacement ) Additional medical history: nueropathy,arrythimia, Psychiatric history: no psych history - Past Surgical History Surgical History: heart valve replacement (Mitral valve replacement and tricuspid repair 10/05/2016, [place]), pacemaker/AICD Additional surgical history: defibrillator, 2017 mitral valve replaced and tricuspid repair - Social History Smoking Status: Never smoker Smokeless Tobacco Status: No Alcohol use: none Drug use: none Medications and Allergies Apixaban [Eliquis] 5 mg PO BID 03/22/19 [History] Atorvastatin [Lipitor] 20 mg PO HS 03/22/19 [History] Bumetanide [Bumex] 1 mg PO DAILY 03/22/19 [History] Furosemide [Lasix] 80 mg PO QAM 03/22/19 [History] Lisinopril [Zestril] 10 mg PO DAILY 03/22/19 [History] Pioglitazone [Actos] 30 mg PO DAILY 03/22/19 [History] Acetaminophen/Diphenhydramine [Percogesic 325-12.5 mg Tablet] 1 tab PO HS 03/28/19 [History] Ascorbic Acid [Vitamin C] 500 mg PO HS 03/28/19 [History] Cholecalciferol (D-3) [Vitamin D] 2,000 unit PO HS 03/28/19 [History] Furosemide [Lasix] 40 mg PO QPM 03/28/19 [History] Melatonin 3 mg PO HS 03/28/19 [History] Multivit-Min/FA/Lycopen/Lutein [Adults 50+ Multivitamin Tablet] 1 tab PO HS 03/28/19 [History] Allergy/AdvReac Type Severity Reaction Status Date / Time cephalexin [From Keflex] Allergy Hives Verified 03/28/19 18:43 Warfarin Allergy See Verified 03/28/19 18:43 Comments aspirin AdvReac Nose Bleed Verified 03/28/19 18:43 Review of Systems All Systems: reviewed and no additional remarkable complaints except as stated Constitutional: fatigue, weight gain Cardiovascular: no chest pain Respiratory: dyspnea Exam - Vital Signs Vital signs: Initial Vital Signs Temp Pulse Resp BP Pulse Ox 97.5 F L 106 22 110/69 97 03/28/19 12:12 03/28/19 12:12 03/28/19 12:12 03/28/19 12:12 03/28/19 12:12 Vital Signs - Last 8 Hours Temp Pulse Resp BP Pulse Ox 03/29/19 07:10 97.5 F L 74 18 110/76 92 03/29/19 04:36 98.3 F 81 14 103/70 94 Intake and Output 03/28/19 03/29/19 03/29/19 23:59 07:59 15:59 Intake Total 100 / 100 Balance 100 / 100 Intake: IV Fluids 100 / 100 Ofirmev 1,000 mg/100 ml 1,000 100 / 100 mg In 100 ml @ 400 mls/hr IVPB ONCE ONE Rx#:[id number] Other: Blood Glucose* 168 142 - General Appearance General appearance: obese EENT: ATNC, mucous membranes moist, hearing intact, vision intact Neck: supple Respiratory: clear Cardiology: edema, normal S1, normal S2 Gastrointestinal: no tenderness, no guarding, obese Integumentary: warm and dry Neurologic: alert and oriented x3 Psychiatric: cooperative Results - Lab Results 03/29/19 01:47 03/29/19 01:47 Most recent lab results 03/28/19 03/28/19 03/29/19 17:06 18:46 01:47 Calcium Magnesium 1.8 Urine Creatinine 47 46 Urine Sodium 64.7 Urine Total Protein 9 03/29/19 01:47 Calcium 9.1 Magnesium Urine Creatinine Urine Sodium Urine Total Protein Consult Discharge Plan - Plan Referrals: Zachary Gutierres DO [Primary Care Provider] -
[2019-03-29] MEDS: Furosemide 40 MG/4 ML VIAL IVP SCH (17:43)
[2019-03-29] MEDS: Ascorbic Acid 500 MG TABLET PO SCH (20:41)
[2019-03-29] MEDS: Cholecalciferol (D-3) 1,000 UNIT (25MCG) TABLET PO SCH (20:41)
[2019-03-29] MEDS: Melatonin 3 MG TABLET PO SCH (20:45)
[2019-03-29 20:49] LABS: Bilirubin,Urine Negative (Negative); Blood,Urine Small (Negative); Clarity,Urine Cloudy (Clear); Color,Urine Yellow (Yellow); Glucose,Urine (UA) Normal (Normal); Ketones,Urine Negative (Negative); Leukocyte Esterase,Urine Large (Negative); Nitrite,Urine Positive (Negative); Protein,Urine Negative (Neg-Trace); Specific Gravity,Urine 1.014 (1.010-1.025); Urobilinogen,Urine Normal (Normal)
[2019-03-29 20:54] LABS: Bacteria,Urine Many per hpf (None-Few); Hyaline Casts,Urine None Seen per lpf (None-Few); Squamous Epithelial Cell,Urine Many per lpf (None-Few); WBC,Urine 50-100 per hpf (0-3)
[2019-03-29] MEDS ORDERED: Melatonin 3 MG TABLET PO SCH (21:00)
[2019-03-29] MEDS ORDERED: Acetaminophen 325 MG TABLET PO SCH (21:00)
[2019-03-30 04:41] LABS: Basophils % 0.4 %; Eosinophils # 0.1 K/mcL (0.0-0.6); Eosinophils % 2.4 %; Hematocrit 41.1 % (35.3-44.9); Hemoglobin 12.7 g/dL (11.5-15.4); Immature Granulocytes % 0.2 % (0-4); Lymphocytes % 21.9 %; Mean Corpuscular HGB Conc 30.9 g/dL (31.6-35.5); Mean Corpuscular Hemoglobin 28.5 pg (28.0-33.3); Mean Corpuscular Volume 92.4 fL (83.0-100.0); Mean Platelet Volume 9.9 fL (9.4-12.4); Monocytes # 0.6 K/mcL (0.0-1.3); Monocytes % 13.2 %; Neutrophils # 2.9 K/mcL (1.6-8.9); Platelet Count 181 K/mcL (140-400); Red Blood Count 4.45 M/mcL (3.82-4.97); Segmented Neutrophils % 61.9 %; White Blood Count 4.6 K/mcL (4.3-11.1)
[2019-03-30 04:48] LABS: INR 1.8
[2019-03-30 05:02] LABS: Albumin 3.6 g/dL (3.5-5.7); Albumin/Globulin Ratio 1.2 (1.1-2.2); Bilirubin,Total 1.1 mg/dL (0.3-1.0); Calcium 8.9 mg/dL (8.6-10.3); Globulin 2.9 g/dL (2.4-3.5); Potassium 3.7 mEq/L (3.5-5.1); Total Protein 6.5 g/dL (6.4-8.9)
[2019-03-30] MEDS: Insulin LISPRO 300 UNITS/3 ML VIAL SQ SCH ×4 (07:30→20:02)
--- NOTE | 2019-03-30 07:52 | Internal Med Progress Note ---
Hospitalist Progress Note - Encounter Date of Encounter: 03/30/19 Time of Encounter: 13:35 - Subjective Interval History: No acute events. Patient requesting better tasting food, would like more seasoned food. Denies CP, N/V. Shortness of breath present with exertion. Edema slightly improved. - Exam Vitals: Temp Pulse Resp BP Pulse Ox 96.8 F L 93 18 111/78 97 03/30/19 07:13 03/30/19 07:13 03/30/19 07:13 03/30/19 07:13 03/30/19 07:13 Exam: Gen: AOx3 Eyes:ROBERT, EOMI with no conjunctivitis Throat: Moist mucous membranes with no oral ulcers or pharyngeal erythema CV: RRR with no murmur. 3+ pitting edema in luisito LE. Abdominal swelling present. Resp: SOB upon sitting up for lung exam. Shallow breath sounds with no wheeze or crackles GI:Soft, non-tender, edematous abdomen. Morbid obesity. No organomegally or masses palpated Neuro: CN II-XII intact with no focal deficits Ext: 3+ pitting edema in luisito LE. DP 2/4 in luisito LE. Slightly improved since yesterday exam. Derm: Stasis ulcers present on shins bilaterally. Fungal rash present under abdominal tissue. - Assessment and Plan (1) CHF exacerbation Current Visit: Yes Status: Acute Assessment and Plan: Echocardiogram showed echocardiogram 20-25%, severely dilated LV, global LV systolic dysfunction. Continue IV diuresis Strict I/Os Fluid restriction. AUSTEN inhibitor continued from home Low dose BB added with caution as she has low/norm BP. Consult Cardiology (2) CULLEN (acute kidney injury) Current Visit: Yes Status: Acute Assessment and Plan: Slight bump in creatnine Nephrology following Significantly fluid overloaded Continue Lasix 40 mg IV BID strict I/Os Fluid restriction diet. (3) Diabetes Current Visit: Yes Status: Acute Assessment and Plan: ADA/fluid restrict diet, ISS (4) HLD (hyperlipidemia) Current Visit: Yes Status: Acute (5) HTN (hypertension) Current Visit: Yes Status: Acute (6) Mitral valve replaced Current Visit: Yes Status: Acute (7) DVT prophylaxis Current Visit: Yes Status: Acute - Time Spent with Patient Total time spent is greater than 50% in coordination of care (as documented) at patient's floor/unit and/or counseling patient: Internal Medicine: Result - Labs CBC & Chem 7: 03/30/19 04:12 03/30/19 04:12 Labs: Short CBC 03/30/19 Range/Units 04:12 WBC 4.6 (4.3-11.1) K/mcL Hgb 12.7 (11.5-15.4) g/dL Hct 41.1 (35.3-44.9) % Plt Count 181 (140-400) K/mcL Neutrophils # 2.9 (1.6-8.9) K/mcL BMP 03/30/19 04:12 Sodium 136 Potassium 3.7 Chloride 99 Carbon Dioxide 27 BUN 19 Creatinine 1.50 H Glucose 142 H Calcium 8.9 Liver Function 03/30/19 Range/Units 04:12 Total Bilirubin 1.1 H (0.3-1.0) mg/dL AST 14 (13-39) Units/L ALT 11 (7-52) Units/L Alkaline Phosphatase 118 H (34-104) Units/L Albumin 3.6 (3.5-5.7) g/dL Urine 03/29/19 Range/Units 20:32 Urine Color Yellow (Yellow) Urine Clarity Cloudy A (Clear) Urine pH 6.0 (5.0-8.0) pH Units Ur Specific [place] 1.014 (1.010-1.025) Urine Protein Negative (Neg-Trace) mg/dL Urine Glucose (UA) Normal (Normal) mg/dL - ABG Interpretation ABG results: PT/INR, D-dimer PT 21.0 Seconds (9.4-12.1) H 03/30/19 04:12 - Impressions Impressions Echocardiogram 03/28/19 15:58 Impressions: Technically sub-optimal due to poor echocardiographic windows. LVEF 20-25%. Severely dilated left ventricle. Severe global left ventricular systolic dysfunction. Indeterminate diastolic function. There is no LV thrombus. Atypical septal motion consistent with bundle branch block. Right ventricle was not well visualized. Grossly, it is mildly dilated with mildly reduced function. Mild-moderate tricuspid regurgitation. Mild pulmonary hypertension. A device lead was visualized in the right atrium and right ventricle. Left Ventricular Wall Motion: Rest Echo Findings The apex, apical inferior, mid inferior, basal inferior, apical anterior, mid anterior, basal anterior, apical septal, mid inferior septal, basal inferior septal, apical lateral, mid anterior lateral, basal anterior lateral, mid anterior septal, mid inferior lateral, basal anterior septal and basal inferior lateral watkins were hypokinetic. Findings: Study Quality * Technically sub-optimal due to poor echocardiographic windows. ECG Findings * Difficult to determine rhythm. Bundle branch block noted. Left Ventricle * LVEF 20-25%. * Severely dilated left ventricle. * Severe global left ventricular systolic dysfunction. * Indeterminate diastolic function. * There is no LV thrombus. * Atypical septal motion consistent with bundle branch block. Right Ventricle * Right ventricle was not well visualized. Grossly, it is mildly dilated with mildly reduced function. Left Atrium * Moderately dilated left atrium. Right Atrium * Normal right atrial size. Interatrial Septum * Interatrial septum not well evaluated. Aortic Valve * Aortic valve not well visualized. * No aortic regurgitation. * No aortic stenosis. Mitral Valve * Mild mitral annular calcification and subvalvular apparatus. * No mitral regurgitation. * No mitral stenosis. Tricuspid Valve * Normal tricuspid valve structure. * Mild-moderate tricuspid regurgitation. * Mild pulmonary hypertension. Pulmonic Valve * Pulmonic valve is not well visualized. Aorta * Normally sized aortic root. Pericardium * The pericardium appears normal. IVC * The IVC is not well evaluated. Pulmonary Artery * Pulmonary artery not well visualized. Device lead * A device lead was visualized in the right atrium and right ventricle. Retroperitoneum Ultrasound 03/29/19 16:00 IMPRESSION: No right hydronephrosis. Nonvisualization of left kidney. Small postvoid residual within the bladder. D/ / Leonid Caceres MD / Leonid Caceres MD Interpreting Provider: Leonid Caceres MD Consult Discharge Plan - Plan Referrals: Zachary Gutierres, DO [Primary Care Provider] - (1) CHF exacerbation Qualifiers: Heart failure type: systolic Qualified Code(s): I50.23 - Acute on chronic systolic (congestive) heart failure (3) Diabetes Qualifiers: Diabetes mellitus type: type 2 Diabetes mellitus custodial insulin use: unsp ecified custodial insulin use status Diabetes mellitus complication status: with other specified complication Qualified Code(s): E11.69 - Type 2 diabetes mellitus with other specified complication (4) HLD (hyperlipidemia) Qualifiers: Hyperlipidemia type: unspecified Qualified Code(s): E78.5 - Hyperlipidemia, unspecified (5) HTN (hypertension) Qualifiers: Hypertension type: essential hypertension Qualified Code(s): I10 - Essential (primary) hypertension
[2019-03-30] MEDS: Nystatin POWDER 30 GM BOTTLE TP SCH ×3 (09:11→20:02)
[2019-03-30] MEDS: Apixaban 5 MG TABLET PO SCH ×2 (09:11→20:01)
--- NOTE | 2019-03-30 09:46 | Nephrology Progress Note ---
Date of Encounter: 03/30/19 Time of Encounter: 09:46 - Assessment and Plan (1) CULLEN (acute kidney injury) Current Visit: Yes Status: Acute Patient with CULLEN with creatinine that is slightly worse. This is likely physiologic from furosemide. Ok to continue furosemide for now and follow creatinine. 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 ROS otherwise is stable. Objective - Vital Signs Vital signs: Vital Signs Temp Pulse Resp BP Pulse Ox 03/30/19 07:13 96.8 F L 93 18 111/78 97 03/30/19 03:59 97.9 F 94 18 124/84 95 03/30/19 00:04 97.8 F 95 17 131/80 96 03/29/19 19:06 97.9 F 105 18 112/72 95 03/29/19 16:26 97.6 F 109 20 111/76 93 03/29/19 11:05 98.2 F 106 18 111/78 93 Intake and Output 03/29/19 03/30/19 03/30/19 23:59 07:59 15:59 Intake Total 120 / 220 Output Total 200 / 400 200 / 400 Balance 120 / 220 -200 / -400 -200 / -400 Intake: Oral 120 / 120 Output: Urine 200 / 400 200 / 400 Other: Meal Dinner Breakfast Percent of Meal Consumed 100% 25% Blood Glucose* 181 128 - General Appearance General appearance: Present: well-developed, well-nourished EENT: Present: ATNC Neck: Present: supple Respiratory: Present: course breath sounds Cardiology: Present: regular rate Gastrointestinal: Present: no tenderness Integumentary: Present: warm and dry Neurologic: Present: alert and oriented x3 Musculoskeletal: Present: no cyanosis Psychiatric: Present: mood/affect appropriate - Lab 03/30/19 04:12 03/30/19 04:12 Most recent lab results 03/30/19 04:12 Calcium 8.9 Consult Discharge Plan - Plan Referrals: Zachary Gutierres DO [Primary Care Provider] -
[2019-03-30] MEDS: Nitrofurantoin (BID) 100 MG CAPSULE PO SCH ×2 (15:20→16:08)
[2019-03-30] MEDS: Furosemide 40 MG/4 ML VIAL IVP SCH (16:08)
[2019-03-30] MEDS: Ascorbic Acid 500 MG TABLET PO SCH (20:01)
[2019-03-30] MEDS: Cholecalciferol (D-3) 1,000 UNIT (25MCG) TABLET PO SCH (20:01)
[2019-03-30] MEDS: Melatonin 3 MG TABLET PO SCH (20:01)
[2019-03-31 07:42] LABS: Basophils % 0.2 %; Eosinophils # 0.1 K/mcL (0.0-0.6); Eosinophils % 1.7 %; Hematocrit 42.8 % (35.3-44.9); Hemoglobin 13.2 g/dL (11.5-15.4); Immature Granulocytes % 0.2 % (0-4); Mean Corpuscular HGB Conc 30.8 g/dL (31.6-35.5); Mean Corpuscular Hemoglobin 28.9 pg (28.0-33.3); Mean Corpuscular Volume 93.9 fL (83.0-100.0); Mean Platelet Volume 10.1 fL (9.4-12.4); Monocytes # 0.7 K/mcL (0.0-1.3); Neutrophils # 3.4 K/mcL (1.6-8.9); Platelet Count 170 K/mcL (140-400); Red Blood Count 4.56 M/mcL (3.82-4.97); Red Cell Distribution Width 13.9 % (11.5-14.5); Segmented Neutrophils % 64.9 %; White Blood Count 5.2 K/mcL (4.3-11.1)
[2019-03-31 07:55] LABS: Albumin 3.6 g/dL (3.5-5.7); Albumin/Globulin Ratio 1.3 (1.1-2.2); Bilirubin,Total 1.1 mg/dL (0.3-1.0); Calcium 9.1 mg/dL (8.6-10.3); Globulin 2.8 g/dL (2.4-3.5); Potassium 3.9 mEq/L (3.5-5.1); Total Protein 6.4 g/dL (6.4-8.9)
--- NOTE | 2019-03-31 09:00 | Internal Med Progress Note ---
Hospitalist Progress Note - Encounter Date of Encounter: 03/31/19 Time of Encounter: 08:54 - Subjective Interval History: No acute events. Patient states breathing better. Denies chest pain, n/v, diaphoresis. - Exam Vitals: Temp Pulse Resp BP Pulse Ox 97.4 F L 96 16 118/81 100 03/31/19 08:00 03/31/19 08:00 03/31/19 08:00 03/31/19 08:00 03/31/19 08:00 Exam: Gen: AOx3 Eyes:ROBERT, EOMI with no conjunctivitis Throat: Moist mucous membranes with no oral ulcers or pharyngeal erythema CV: RRR with no murmur. 3+ pitting edema in luisito LE. Abdominal swelling present. Resp: SOB upon sitting up for lung exam. Shallow breath sounds with no wheeze or crackles GI:Soft, non-tender, edematous abdomen. Morbid obesity. No organomegally or masses palpated Neuro: CN II-XII intact with no focal deficits Ext: 3+ pitting edema in luisito LE. DP 2/4 in luisito LE. Slightly improved since yesterday exam. Derm: Stasis ulcers present on shins bilaterally. Fungal rash present under abdominal tissue. - Assessment and Plan (1) CHF exacerbation Current Visit: Yes Status: Acute Assessment and Plan: Echocardiogram showed echocardiogram 20-25%, severely dilated LV, global LV systolic dysfunction. Strict I/Os Fluid restriction. AUSTEN inhibitor continued from home Low dose BB added with caution as she has low/norm BP. Discussed patient's findings of echo and CHF to Cardiology. Chart reviewed and noted to continue current management and follow-up with Cardiology as outpatient. Hold next dose of Lasix because of renal function for now. (2) CULLEN (acute kidney injury) Current Visit: Yes Status: Acute Assessment and Plan: Nephrology following Significantly anasarca with 3+ pitting edema of lower extremities that extends to abdomen. strict I/Os Fluid restriction diet. Creatinine slightly worsened to 1.7 today, likely diuretic related. Hold Lasix now and await Nephro recs. (3) Diabetes Current Visit: Yes Status: Acute Assessment and Plan: ADA/fluid restrict diet, ISS (4) HLD (hyperlipidemia) Current Visit: Yes Status: Acute (5) HTN (hypertension) Current Visit: Yes Status: Acute Assessment and Plan: Continue home medications. Lisinopril decreased to 5 mg because BP lower normal and metoprolol 12.5 BID was added both highly recommended for HFrEF. (6) Mitral valve replaced Current Visit: Yes Status: Acute (7) UTI (urinary tract infection) Current Visit: Yes Status: Acute Assessment and Plan: Uncomplicated. Macrobid day 2 (8) DVT prophylaxis Current Visit: Yes Status: Acute Assessment and Plan: Eliquis DVT Prophylaxis: eliquis - Time Spent with Patient Total time spent is greater than 50% in coordination of care (as documented) at patient's floor/unit and/or counseling patient: Internal Medicine: Result - Labs CBC & Chem 7: 03/31/19 06:56 03/31/19 06:56 Labs: Short CBC 03/31/19 Range/Units 06:56 WBC 5.2 (4.3-11.1) K/mcL Hgb 13.2 (11.5-15.4) g/dL Hct 42.8 (35.3-44.9) % Plt Count 170 (140-400) K/mcL Neutrophils # 3.4 (1.6-8.9) K/mcL BMP 03/31/19 06:56 Sodium 138 Potassium 3.9 Chloride 97 L Carbon Dioxide 30 H BUN 23 Creatinine 1.79 H Glucose 165 H Calcium 9.1 Liver Function 03/31/19 Range/Units 06:56 Total Bilirubin 1.1 H (0.3-1.0) mg/dL AST 15 (13-39) Units/L ALT 10 (7-52) Units/L Alkaline Phosphatase 115 H (34-104) Units/L Albumin 3.6 (3.5-5.7) g/dL - ABG Interpretation ABG results: PT/INR, D-dimer PT 21.0 Seconds (9.4-12.1) H 03/30/19 04:12 Consult Discharge Plan - Plan Referrals: Zachary Gutierres, DO [Primary Care Provider] - (1) CHF exacerbation Qualifiers: Heart failure type: systolic Qualified Code(s): I50.23 - Acute on chronic systolic (congestive) heart failure (3) Diabetes Qualifiers: Diabetes mellitus type: type 2 Diabetes mellitus assisted insulin use: unspecified assisted insulin use status Diabetes mellitus complication status: with other specified complication Qualified Code(s): E11.69 - Type 2 diabetes mellitus with other specified complication (4) HLD (hyperlipidemia) Qualifiers: Hyperlipidemia type: unspecified Qualified Code(s): E78.5 - Hyperlipidemia, unspecified (5) HTN (hypertension) Qualifiers: Hypertension type: essential hypertension Qualified Code(s): I10 - Essential (primary) hypertension (7) UTI (urinary tract infection) Qualifiers: Urinary tract infection type: acute cystitis Hematuria presence: with hematuria Qualified Code(s): N30.01 - Acute cystitis with hematuria
[2019-03-31] MEDS: Furosemide 40 MG/4 ML VIAL IVP SCH (09:11)
[2019-03-31] MEDS: Nitrofurantoin (BID) 100 MG CAPSULE PO SCH ×2 (09:14→17:02)
[2019-03-31] MEDS: Insulin LISPRO 300 UNITS/3 ML VIAL SQ SCH ×4 (09:14→20:55)
[2019-03-31] MEDS: Apixaban 5 MG TABLET PO SCH ×2 (09:15→20:55)
[2019-03-31] MEDS: Nystatin POWDER 30 GM BOTTLE TP SCH ×3 (09:15→20:56)
--- NOTE | 2019-03-31 11:40 | Nephrology Progress Note ---
Date of Encounter: 03/31/19 Time of Encounter: 11:40 - Assessment and Plan (1) CULLEN (acute kidney injury) Current Visit: Yes Status: Acute Patient with CULLEN with creatinine that is slightly worse. This is likely physiologic from furosemide. Ok to continue furosemide for now and follow creatinine. Add albumin to improve oncotic pressure. If creatinine rises overnight will hold furosemide. 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 Subjective Principal diagnosis: cullen Interval history: Patient feels better, but is not back to baseline. ROS otherwise is stable. Objective - Vital Signs Vital signs: Vital Signs Temp Pulse Resp BP Pulse Ox 03/31/19 11:09 97.7 F 88 15 105/71 91 03/31/19 08:00 97.4 F L 96 16 118/81 100 03/31/19 00:00 98.4 F 90 18 111/76 96 03/30/19 19:28 98.1 F 96 18 133/79 92 03/30/19 15:38 98.4 F 94 18 103/71 94 Intake and Output 03/30/19 03/31/19 03/31/19 23:59 07:59 15:59 Intake Total 0 / 0 0 / 120 120 / 120 Output Total 150 / 550 0 / 0 Balance -150 / -550 0 / 120 120 / 120 Intake: Oral 0 / 0 0 / 120 120 / 120 Output: Urine 150 / 550 0 / 0 Other: Meal Breakfast Stool Size Small Stool Consistency formed Stool Color Brown # Voids 1 # Bowel Movements 1 Blood Glucose* 176 143 - General Appearance General appearance: Present: well-developed, well-nourished EENT: Present: ATNC Cardiology: Present: edema, regular rate Gastrointestinal: Present: obese Neurologic: Present: alert and oriented x3 Psychiatric: Present: mood/affect appropriate - Lab 03/31/19 06:56 03/31/19 06:56 Most recent lab results 03/31/19 06:56 Calcium 9.1 Consult Discharge Plan - Plan Referrals: Zachary Gutierres DO [Primary Care Provider] -
[2019-03-31] MEDS ORDERED: Oxymetazoline Nasal SPRAY BOTTLE NS PRN (16:23)
[2019-03-31] MEDS: Melatonin 3 MG TABLET PO SCH (20:54)
[2019-03-31] MEDS: Ascorbic Acid 500 MG TABLET PO SCH (20:54)
[2019-03-31] MEDS: Cholecalciferol (D-3) 1,000 UNIT (25MCG) TABLET PO SCH (20:54)
[2019-04-01 05:20] LABS: Basophils % 0.5 %; Eosinophils # 0.1 K/mcL (0.0-0.6); Eosinophils % 1.6 %; Hematocrit 41.9 % (35.3-44.9); Hemoglobin 13.2 g/dL (11.5-15.4); Immature Granulocytes % 0.2 % (0-4); Lymphocytes # 1.4 K/mcL (0.6-4.6); Lymphocytes % 21.9 %; Mean Corpuscular HGB Conc 31.5 g/dL (31.6-35.5); Mean Corpuscular Hemoglobin 29.3 pg (28.0-33.3); Mean Corpuscular Volume 92.9 fL (83.0-100.0); Monocytes # 0.7 K/mcL (0.0-1.3); Monocytes % 11.8 %; Platelet Count 185 K/mcL (140-400); Red Blood Count 4.51 M/mcL (3.82-4.97); Red Cell Distribution Width 13.9 % (11.5-14.5); White Blood Count 6.3 K/mcL (4.3-11.1)
[2019-04-01 05:42] LABS: Albumin 3.9 g/dL (3.5-5.7); Albumin/Globulin Ratio 1.4 (1.1-2.2); Bilirubin,Total 1.2 mg/dL (0.3-1.0); Calcium 9.2 mg/dL (8.6-10.3); Globulin 2.8 g/dL (2.4-3.5); Potassium 4.1 mEq/L (3.5-5.1); Total Protein 6.7 g/dL (6.4-8.9)
[2019-04-01] MEDS: Insulin LISPRO 300 UNITS/3 ML VIAL SQ SCH ×4 (07:31→20:33)
--- NOTE | 2019-04-01 07:31 | Internal Med Progress Note ---
Hospitalist Progress Note - Encounter Date of Encounter: 04/01/19 Time of Encounter: 13:11 - Subjective Interval History: No acute events. Edema still significant without much improvement today compared to yesterday. - Exam Vitals: Temp Pulse Resp BP Pulse Ox 97.8 F 92 18 125/83 91 04/01/19 07:12 04/01/19 07:12 04/01/19 07:12 04/01/19 07:12 04/01/19 07:12 Exam: Gen: AOx3 Eyes:ROBERT, EOMI with no conjunctivitis Throat: MMM CV: RRR Resp: Poor inspiratory effort, decreased breath sounds. GI:Soft, NT/ND, edema, Ext: 3+ pitting edema in luisito LE. extends to abdomen Derm: Stasis ulcers present on shins bilaterally. Fungal rash present under abdominal tissue. - Assessment and Plan (1) CHF exacerbation Current Visit: Yes Status: Acute Assessment and Plan: Echocardiogram showed echocardiogram 20-25%, severely dilated LV, global LV sy stolic dysfunction. Strict I/Os Fluid restriction. ACEi Low dose BB added with caution as she has low/norm BP. Echocardiogram results discussed with Cardiology team. Chart reviewed and noted to continue current management and follow-up with Cardiology as outpatient. Lasix increased today to 60 mg IV BID with metolazone. (2) CULLEN (acute kidney injury) Current Visit: Yes Status: Acute Assessment and Plan: Slightly above baseline Likely from volume overload. strict I/Os Fluid restriction diet. Diuresis with close monitoring (3) Diabetes Current Visit: Yes Status: Acute Assessment and Plan: ADA/fluid restrict diet, ISS (4) HLD (hyperlipidemia) Current Visit: Yes Status: Acute (5) HTN (hypertension) Current Visit: Yes Status: Acute Assessment and Plan: Continue home medications. Lisinopril decreased to 5 mg because BP lower normal and metoprolol 12.5 BID was added both highly recommended for HFrEF. (6) Mitral valve replaced Current Visit: Yes Status: Acute (7) UTI (urinary tract infection) Current Visit: Yes Status: Acute Assessment and Plan: Uncomplicated. Macrobid day 3 (8) DVT prophylaxis Current Visit: Yes Status: Acute Assessment and Plan: Eliquis - Time Spent with Patient Total time spent is greater than 50% in coordination of care (as documented) at patient's floor/unit and/or counseling patient: Internal Medicine: Result - Labs CBC & Chem 7: 04/01/19 05:06 04/01/19 05:06 Labs: Short CBC 03/31/19 04/01/19 Range/Units 06:56 05:06 WBC 5.2 6.3 (4.3-11.1) K/mcL Hgb 13.2 13.2 (11.5-15.4) g/dL Hct 42.8 41.9 (35.3-44.9) % Plt Count 170 185 (140-400) K/mcL Neutrophils # 3.4 4.0 (1.6-8.9) K/mcL BMP 03/31/19 04/01/19 06:56 05:06 Sodium 138 135 L Potassium 3.9 4.1 Chloride 97 L 98 Carbon Dioxide 30 H 26 BUN 23 26 H Creatinine 1.79 H 1.62 H Glucose 165 H 201 H Calcium 9.1 9.2 Liver Function 03/31/19 04/01/19 Range/Units 06:56 05:06 Total Bilirubin 1.1 H 1.2 H (0.3-1.0) mg/dL AST 15 15 (13-39) Units/L ALT 10 11 (7-52) Units/L Alkaline Phosphatase 115 H 115 H (34-104) Units/L Albumin 3.6 3.9 (3.5-5.7) g/dL - ABG Interpretation ABG results: PT/INR, D-dimer PT 21.0 Seconds (9.4-12.1) H 03/30/19 04:12 Consult Discharge Plan - Plan Referrals: Zachary Gutierres, DO [Primary Care Provider] - (1) CHF exacerbation Qualifiers: Heart failure type: systolic Qualified Code(s): I50.23 - Acute on chronic systolic (congestive) heart failure (3) Diabetes Qualifiers: Diabetes mellitus type: type 2 Diabetes mellitus usp insulin use: unspecified terminal press operator insulin use status Diabetes mellitus complication status: with other specified complication Qualified Code(s): E11.69 - Type 2 diabetes mellitus with other specified complication (4) HLD (hyperlipidemia) Qualifiers: Hyperlipidemia type: unspecified Qualified Code(s): E78.5 - Hyperlipidemia, unspecified (5) HTN (hypertension) Qualifiers: Hypertension type: essential hypertension Qualified Code(s): I10 - Essential (primary) hypertension (7) UTI (urinary tract infection) Qualifiers: Urinary tract infection type: acute cystitis Hematuria presence: with hematuria Qualified Code(s): N30.01 - Acute cystitis with hematuria
[2019-04-01] MEDS: Nitrofurantoin (BID) 100 MG CAPSULE PO SCH ×2 (07:34→16:02)
[2019-04-01] MEDS: Apixaban 5 MG TABLET PO SCH ×2 (07:34→20:39)
[2019-04-01] MEDS: Nystatin POWDER 30 GM BOTTLE TP SCH ×3 (07:35→20:39)
[2019-04-01] MEDS ORDERED: Albumin 25% 25gram/100mL 25 GM/100 ML IV.SOLN IVPB SCH ×2 (09:00)
[2019-04-01] MEDS: metOLazone 2.5 MG TABLET PO SCH (09:15)
[2019-04-01] MEDS: Furosemide 40 MG/4 ML VIAL IVP SCH ×2 (09:46→18:08)
--- NOTE | 2019-04-01 09:50 | Nephrology Progress Note ---
Date of Encounter: 04/01/19 Time of Encounter: 09:49 - Assessment and Plan (1) CULLEN (acute kidney injury) Current Visit: Yes Status: Acute Patient with CULLEN with creatinine that is slightly worse. This is likely physiologic from furosemide. Ok to continue furosemide for now and follow creatinine. Add albumin to improve oncotic pressure. Will also add metolazone. Increase furosemide from 40 to 60mg. (2) CHF exacerbation Current Visit: Yes Status: Acute Qualifiers: Heart failure type: systolic Qualified Code(s): I50.23 - Acute on chronic systolic (congestive) heart failure (3) Diabetes Current Visit: Yes Status: Acute Qualifiers: Diabetes mellitus type: type 2 Diabetes mellitus terminal manager insulin use: unspecified residential insulin use status Diabetes mellitus complication status: with other specified complication Qualified Code(s): E11.69 - Type 2 diabetes mellitus with other specified complication (4) Hyperuricemia Current Visit: Yes Status: Acute Subjective Principal diagnosis: cullen Interval history: Patient feels better, but is not back to baseline. ROS otherwise is stable. She still feels swollen. Objective - Vital Signs Vital signs: Vital Signs Temp Pulse Resp BP Pulse Ox 04/01/19 07:12 97.8 F 92 18 125/83 91 04/01/19 03:49 91 04/01/19 03:19 97.9 F 93 18 108/74 90 04/01/19 00:03 97.7 F 96 20 107/75 91 03/31/19 19:42 97.6 F 96 20 115/70 91 03/31/19 16:06 98.0 F 99 18 113/76 94 03/31/19 11:09 97.7 F 88 15 105/71 91 Intake and Output 03/31/19 04/01/19 04/01/19 23:59 07:59 15:59 Intake Total 100 / 100 Output Total 250 / 450 200 / 400 200 / 400 Balance -250 / -330 -100 / -300 -200 / -300 Intake: IV Fluids 100 / 100 Flexbumin 25 gm In 100 ml @ 60 100 / 100 mls/hr IVPB Q8HR [facility] Rx#: [id number] Output: Urine 250 / 450 200 / 400 200 / 400 Other: Weight 135.2 kg Blood Glucose* 198 190 Patient Weight 04/01/19 23:59 Weight 135.2 kg - General Appearance General appearance: Present: well-developed, well-nourished, obese EENT: Present: ATNC Neck: Present: supple Cardiology: Present: edema Gastrointestinal: Present: obese Integumentary: Present: warm and dry Neurologic: Present: alert and oriented x3 Psychiatric: Present: mood/affect appropriate - Lab 04/01/19 05:06 04/01/19 05:06 Most recent lab results 04/01/19 05:06 Calcium 9.2 Consult Discharge Plan - Plan Referrals: Zachary Gutierres DO [Primary Care Provider] -
[2019-04-01] MEDS: Albumin 25% 25gram/100mL 25 GM/100 ML IV.SOLN IVPB SCH (16:02)
[2019-04-01] MEDS: Cholecalciferol (D-3) 1,000 UNIT (25MCG) TABLET PO SCH (20:39)
[2019-04-01] MEDS: Ascorbic Acid 500 MG TABLET PO SCH (20:39)
[2019-04-01] MEDS: Melatonin 3 MG TABLET PO SCH (20:39)
[2019-04-02 03:48] LABS: Potassium 3.8 mEq/L (3.5-5.1)
--- NOTE | 2019-04-02 08:32 | Internal Med Progress Note ---
<Maddy Mar - Last Filed: 04/02/19 14:03> Hospitalist Progress Note - Encounter Date of Encounter: 04/02/19 - Exam Vitals: Temp Pulse Resp BP Pulse Ox 97.8 F 93 18 104/72 91 04/02/19 11:42 04/02/19 11:42 04/02/19 11:42 04/02/19 11:42 04/02/19 11:42 - Assessment and Plan (1) CHF exacerbation Current Visit: Yes Status: Acute (2) CULLEN (acute kidney injury) Current Visit: Yes Status: Acute (3) Diabetes Current Visit: Yes Status: Acute (4) HLD (hyperlipidemia) Current Visit: Yes Status: Acute (5) HTN (hypertension) Current Visit: Yes Status: Acute (6) Mitral valve replaced Current Visit: Yes Status: Acute (7) UTI (urinary tract infection) Current Visit: Yes Status: Acute (8) DVT prophylaxis Current Visit: Yes Status: Acute - Time Spent with Patient Total time spent is greater than 50% in coordination of care (as documented) at patient's floor/unit and/or counseling patient: Internal Medicine: Result - Labs CBC & Chem 7: 04/01/19 05:06 04/02/19 03:09 Labs: BMP 04/02/19 03:09 Sodium 135 L Potassium 3.8 Chloride 98 Carbon Dioxide 26 BUN 23 Creatinine 1.51 H Glucose 173 H Calcium 9.0 - ABG Interpretation ABG results: PT/INR, D-dimer PT 21.0 Seconds (9.4-12.1) H 03/30/19 04:12 Consult Discharge Plan - Plan Referrals: Zachary Gutierres DO [Primary Care Provider] - - Attending Attestation I saw evaluated and examined this patient and reviewed objective data including labs and my medical decision-making was reviewed with the Resident Physician/Medical Student. I agree with the documented findings, disposition and treatment plan as described except to any changes set forth below. We independently had [id number] contact with the patient. No acute events. Shortness of breath with minor improvement. Denies chest pain, n/v. Appetite is poor. VS: reviewed, BP/HR stable. Gen: NAD, CVS: RRR, Lungs: limited exam patient only partially sits upright. Poor inspiratory effort. Ext: 3+ bipedal edema. GI: Abdomen with significant swelling. Plan: Continue monitoring renal function, IV Lasix, metolazone, albumin. <Richard Best R - Last Filed: 04/02/19 14:45> Hospitalist Progress Note - Encounter Date of Encounter: 04/02/19 Time of Encounter: 09:15 - Subjective Interval History: Patient seen and examined at bedside. Reports that the SOB and swelling is improving. Denies any light headedness, chest pain, palpitations, wheeze, nausea, vomiting, diarrhea, or dysuria. - Exam Vitals: Temp Pulse Resp BP Pulse Ox 97.6 F 92 18 121/79 96 04/02/19 07:33 04/02/19 07:33 04/02/19 07:33 04/02/19 07:33 04/02/19 07:33 Exam: Gen: AOx3 in no acute distress Eyes: ROBERT, EOMI with no conjunctivitis present Throat: Moist mucous membranes with no ulcers, or tonsilar exudate present CV: RRR with no murmur Resp: Orthopnea and abdomenal tissue prevent good breath sounds making difficult to assess lungs. GI: Soft, non-tender, edematous abdomen. Morbid obesity. No organomegally or masses palpated Ext: 3+ edema in luisito shins. DP 2/4 luisito Derm: warm, edematous skin in shins and abdomen. Venous/arterial ulcers improvng on shins. Rash under abdominal tissue improving Neuro: CN II-XII intact with no focal deficits - Assessment and Plan (1) CHF exacerbation Current Visit: Yes Status: Acute Assessment and Plan: Increased SOB, orthopnea, and fluid retention at admission -Previous diagnosis of CHF in 2012, diabetes, HTN, HLD -Takes lasix, atorvastatin, and lisinopril -Mitral Valve replacement in 2017 - Stress test in 2017 showed EF 35%, large sized infarct in the inferior and inferiolateral wall, LV severly dilated - Chest X ray 03/28 limited low lung volume portable chest x-ray demonstrating bibasilar airspace opacity, most likely atelectasis. No acute process demon strated otherwise - BNP 727 on 03/28 - TSH 4 and free T4 1.54 on 03/29 -echocardiogram 20-25%, severely dilated LV, global LV systolic dysfunction on 03/28 Plan: - Cont IV lasix 60 mg with metolazone added. May need to stop if creatinine rises - Cont Lisinopril. May need to stop if creatinine - Cont low dose Beta harjinder. Monitor due to normally low blood pressure -Strict I/O -Cardiac diet - Fluid restrcitive diet to 1.5 L (2) CULLEN (acute kidney injury) Current Visit: Yes Status: Acute Assessment and Plan: -Creatinine 1.51 and eGFR 35 today down from 1.79 creatinine 03/31 - Increased fluid retention in Luisito LE and abdomen - Takes 120 mg Lasixs and 1 mg bumex PO at home - Nephrology consulted - Urine electrolyte panel showed urine creatinine 46, urine microalbumin 21, urine Na 64.7, Urine K 14.4, and urine total protein 9 on 03/28 - U/A positive for Nitrites and urine esterase large with many bacteria present on 03/29. Asymptomatic at the time. - Albumin 3.9 on 04/02 Plan - Cont IV Lasix and metolazone as above however may need to stop if worsening creatinine and urine output - Cont macrobid day 4 of - add albumin to increase plasma oncotic pressue - Renally dose medications and avoid nephrotoxic medications when possible (3) Diabetes Current Visit: Yes Status: Acute Assessment and Plan: - Chronic Diabetes on pioglitazone at home - POC 173 today Plan - cont insulin - Cardiac diet (4) HLD (hyperlipidemia) Current Visit: Yes Status: Acute Assessment and Plan: - Cont home lipitor (5) HTN (hypertension) Current Visit: Yes Status: Acute Assessment and Plan: - Chronic HTN on lisinopril and lasix Plan - Cont Lisinopril, may need to discontinue if creatinine rises - Cont IV lasix and metolazone (6) Mitral valve replaced Current Visit: Yes Status: Acute Assessment and Plan: - Mitral valve replacement and tricuspid repair in 2017 Plan: -Cont Eliquis DVT Prophylaxis: eliquis - Time Spent with Patient Total time spent is greater than 50% in coordination of care (as documented) at patient's floor/unit and/or counseling patient: Plan of Care Discussed with: patient Internal Medicine: Result - Labs CBC & Chem 7: 04/01/19 05:06 04/02/19 03:09 Labs: BMP 04/02/19 03:09 Sodium 135 L Potassium 3.8 Chloride 98 Carbon Dioxide 26 BUN 23 Creatinine 1.51 H Glucose 173 H Calcium 9.0 - ABG Interpretation ABG results: PT/INR, D-dimer PT 21.0 Seconds (9.4-12.1) H 03/30/19 04:12 __ <Maddy Mar - Last Filed: 04/02/19 14:03> (1) CHF exacerbation Qualifiers: Heart failure type: systolic Qualified Code(s): I50.23 - Acute on chronic systolic (congestive) heart failure (3) Diabetes Qualifiers: Diabetes mellitus type: type 2 Diabetes mellitus terminal make up operator insulin use: unspecified fci insulin use status Diabetes mellitus complication status: with other specified complication Qualified Code(s): E11.69 - Type 2 diabetes mellitus with other specified complication (4) HLD (hyperlipidemia) Qualifiers: Hyperlipidemia type: unspecified Qualified Code(s): E78.5 - Hyperlipidemia, unspecified (5) HTN (hypertension) Qualifiers: Hypertension type: essential hypertension Qualified Code(s): I10 - Essential (primary) hypertension (7) UTI (urinary tract infection) Qualifiers: Urinary tract infection type: acute cystitis Hematuria presence: with hematuria Qualified Code(s): N30.01 - Acute cystitis with hematuria <Richard Best - Last Filed: 04/02/19 14:45> (1) CHF exacerbation Qualifiers: Heart failure type: systolic Qualified Code(s): I50.23 - Acute on chronic systolic (congestive) heart failure (3) Diabetes Qualifiers: Diabetes mellitus type: type 2 Diabetes mellitus fci insulin use: unspecified fci insulin use status Diabetes mellitus complication status: with other specified complication Qualified Code(s): E11.69 - Type 2 diabetes mellitus with other specified complication (4) HLD (hyperlipidemia) Qualifiers: Hyperlipidemia type: unspecified Qualified Code(s): E78.5 - Hyperlipidemia, unspecified (5) HTN (hypertension) Qualifiers: Hypertension type: essential hypertension Qualified Code(s): I10 - Essential (primary) hypertension
[2019-04-02] MEDS: Insulin LISPRO 300 UNITS/3 ML VIAL SQ SCH ×4 (09:09→20:54)
[2019-04-02] MEDS: Furosemide 40 MG/4 ML VIAL IVP SCH ×2 (09:12→19:40)
[2019-04-02] MEDS: Apixaban 5 MG TABLET PO SCH ×2 (09:12→20:46)
[2019-04-02] MEDS: metOLazone 2.5 MG TABLET PO SCH (09:12)
[2019-04-02] MEDS: Nitrofurantoin (BID) 100 MG CAPSULE PO SCH ×2 (09:12→17:04)
[2019-04-02] MEDS: Nystatin POWDER 30 GM BOTTLE TP SCH ×3 (09:13→22:41)
[2019-04-02] MEDS: Albumin 25% 25gram/100mL 25 GM/100 ML IV.SOLN IVPB SCH ×2 (09:28→17:03)
--- NOTE | 2019-04-02 10:04 | Nephrology Progress Note ---
Date of Encounter: 04/02/19 Time of Encounter: 10:01 - Assessment and Plan (1) CULLEN (acute kidney injury) Current Visit: Yes Status: Acute Patient with CULLEN with creatinine that fluctuates. This is likely physiologic from furosemide. Ok to continue furosemide for now and follow creatinine. Added albumin to improve oncotic pressure. Also added metolazone. Increased furosemide from 40 to 60mg. She has responded well to these changes. She is urinating better and her creatinine is stable. (2) CHF exacerbation Current Visit: Yes Status: Acute Qualifiers: Qualified Code(s): I50.23 - Acute on chronic systolic (congestive) heart failure (3) Diabetes Current Visit: Yes Status: Acute Qualifiers: Qualified Code(s): E11.69 - Type 2 diabetes mellitus with other specified complication (4) Hyperuricemia Current Visit: Yes Status: Acute Subjective Principal diagnosis: cullen Interval history: Patient's biggest complaint is feeling sleepy ROS otherwise is stable. She still feels swollen. Objective - Vital Signs Vital signs: Vital Signs Temp Pulse Resp BP Pulse Ox 04/02/19 07:33 97.6 F 92 18 121/79 96 04/02/19 00:26 97.5 F L 93 18 114/71 96 04/01/19 19:07 97.9 F 100 18 113/76 96 04/01/19 15:51 98.2 F 95 18 107/79 92 04/01/19 12:19 97.3 F L 95 17 103/68 92 Intake and Output 04/01/19 04/02/19 04/02/19 23:59 07:59 15:59 Intake Total 100 / 540 0 / 120 120 / 120 Output Total 250 / 950 600 / 1350 750 / 1350 Balance -150 / -410 -600 / -1230 -630 / -1230 Intake: IV Fluids 100 / 300 Flexbumin 25 gm In 100 ml @ 60 100 / 100 mls/hr IVPB 0800,1700 [facility] Rx#: [id number] Oral 0 / 240 0 / 120 120 / 120 Output: Urine 250 / 950 600 / 1350 750 / 1350 Other: Meal Breakfast Percent of Meal Consumed 95% # Voids 1 1 Blood Glucose* 155 173 - General Appearance General appearance: Present: well-developed, well-nourished, obese EENT: Present: ATNC Cardiology: Present: edema, regular rate Integumentary: Present: warm and dry Neurologic: Present: alert and oriented x3 Psychiatric: Present: mood/affect appropriate - Lab 04/01/19 05:06 04/02/19 03:09 Most recent lab results 04/02/19 03:09 Calcium 9.0 Consult Discharge Plan - Plan Referrals: Zachary Gutierres DO [Primary Care Provider] -
--- NOTE | 2019-04-02 11:42 | Electrocardiograph Report ---
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
[2019-04-02] MEDS: Melatonin 3 MG TABLET PO SCH (20:46)
[2019-04-02] MEDS: Cholecalciferol (D-3) 1,000 UNIT (25MCG) TABLET PO SCH (20:46)
[2019-04-02] MEDS: Ascorbic Acid 500 MG TABLET PO SCH (20:46)
[2019-04-03 06:29] LABS: Calcium 9.7 mg/dL (8.6-10.3); Potassium 3.1 mEq/L (3.5-5.1)
--- NOTE | 2019-04-03 07:34 | Internal Med Progress Note ---
<Maddy Mar - Last Filed: 04/03/19 12:48> Hospitalist Progress Note - Encounter Date of Encounter: 04/03/19 - Exam Vitals: Temp Pulse Resp BP Pulse Ox 97.7 F 87 17 103/70 90 04/03/19 11:27 04/03/19 11:27 04/03/19 11:27 04/03/19 11:27 04/03/19 11:27 - Assessment and Plan (1) CHF exacerbation Current Visit: Yes Status: Acute (2) CULLEN (acute kidney injury) Current Visit: Yes Status: Acute (3) Diabetes Current Visit: Yes Status: Acute (4) HLD (hyperlipidemia) Current Visit: Yes Status: Acute (5) HTN (hypertension) Current Visit: Yes Status: Acute (6) Mitral valve replaced Current Visit: Yes Status: Acute (7) UTI (urinary tract infection) Current Visit: Yes Status: Acute (8) DVT prophylaxis Current Visit: Yes Status: Acute - Time Spent with Patient Total time spent is greater than 50% in coordination of care (as documented) at patient's floor/unit and/or counseling patient: Internal Medicine: Result - Labs CBC & Chem 7: 04/01/19 05:06 04/03/19 05:32 Labs: BMP 04/03/19 05:32 Sodium 139 Potassium 3.1 L Chloride 96 L Carbon Dioxide 32 H BUN 22 Creatinine 1.39 H Glucose 132 H Calcium 9.7 - ABG Interpretation ABG results: PT/INR, D-dimer PT 21.0 Seconds (9.4-12.1) H 03/30/19 04:12 Consult Discharge Plan - Plan Referrals: Zachary Gutierres DO [Primary Care Provider] - - Attending Attestation I saw evaluated and examined this patient and reviewed objective data including labs and my medical decision-making was reviewed with the Resident P mariah/Medical Student. I agree with the documented findings, disposition and treatment plan as described except to any changes set forth below. We independently had [id number] contact with the patient. No acute events. VS: reviewed, labs: reviewed, anasarca slight improvement. Continue diuresis per Nephrology recommendations. As stated in prior progress note, Cardiology reviewed patient chart and agrees with current management and for outpatient follow-up. <Coon,Richard R - Last Filed: 04/03/19 17:13> Hospitalist Progress Note - Encounter Date of Encounter: 04/03/19 Time of Encounter: 08:50 - Subjective Interval History: Patient reports no acute events overnight. States the SOB and edema is improving. Last bowel movement was 2 days ago. Denies any chest pain, palpitations, light headedness, cough, nausea, vomiting, diarrhea, or dysuria - Exam Vitals: Temp Pulse Resp BP Pulse Ox 97.8 F 96 18 113/74 91 04/03/19 07:20 04/03/19 07:20 04/03/19 07:20 04/03/19 07:20 04/03/19 07:20 Exam: Gen: AO x3 in no acute distress Eyes: ROBERT, EOMI with no conjunctivitis or scleral icterus Throat: Moist mucous membranes with no pharyngeal erythema or tonsilar exudate CV: RRR with no murmurs Resp: Difficult to perform posterior lung exam because patient unable to sit up and has decreased lung volumes and shallow breathing. Anterior breath sounds CTA with no crackle or rhales Abdomen: Soft, non-tender edematous abdomen. Morbid obesity. No organomegally or masses palpated Neuro: CN II-XII intact with no focal deficit. Ext: 3+ pitting edema in luisito shins. 3+ edema in the left arm. No edema in right arm. DP 2/4 luisito. Derm: Venous/arterial stasis ulcers luisito improving. Fungal rash under abdominal folds improving - Assessment and Plan (1) CHF exacerbation Current Visit: Yes Status: Acute Assessment and Plan: Increased SOB, orthopnea, and fluid retention at admission -Previous diagnosis of CHF in 2012, diabetes, HTN, HLD -Takes lasix, atorvastatin, and lisinopril -Mitral Valve replacement in 2016 - Stress test in 2017 showed EF 35%, large sized infarct in the inferior and inferiolateral wall, LV severly dilated - Chest X ray 03/28 limited low lung volume portable chest x-ray demonstrating bibasilar airspace opacity, most likely atelectasis. No acute process demonstrated otherwise - BNP 727 on 03/28 - TSH 4 and free T4 1.54 on 03/29 -echocardiogram 20-25%, severely dilated LV, global LV systolic dysfunction on 03/28 Plan: - Diuresis per nephrology recommendations. May need to stop if creatinine rises - Cont Lisinopril. May need to stop if creatinine - Cont low dose Beta harjinder. Monitor due to normally low blood pressure -Strict I/O -Cardiac diet - Fluid restrcitive diet to 1.5 L (2) CULLEN (acute kidney injury) Current Visit: Yes Status: Acute Assessment and Plan: -Creatinine 1.39 and eGFR 39 today down from 1.51 creatinine 04/02 - Increased fluid retention in Luisito LE and abdomen - Takes 120 mg Lasixs and 1 mg bumex PO at home - Nephrology consulted - Urine electrolyte panel showed urine creatinine 46, urine microalbumin 21, urine Na 64.7, Urine K 14.4, and urine total protein 9 on 03/28 - U/A positive for Nitrites and urine esterase large with many bacteria present on 03/29. Asymptomatic at the time. - Albumin 3.9 on 04/01 Plan - Cont Diuresis per nephrology recommendations. However may need to stop if worsening creatinine and urine output - Cont macrobid day 5 of 5 - Renally dose medications and avoid nephrotoxic medications when possible (3) Hypokalemia Current Visit: Yes Status: Acute Assessment and Plan: - Potassium 3.1 on 04/03 - Has been on lasix, metolazone, and albumin diuresis - Nephrology following Plan: -Replace potassium 40 meq BID -Recheck in the morning (4) Diabetes Current Visit: Yes Status: Acute Assessment and Plan: - Chronic Diabetes on pioglitazone at home - POC 135 today Plan - cont insulin - Cardiac diabetic diet (5) HLD (hyperlipidemia) Current Visit: Yes Status: Acute Assessment and Plan: - Cont home lipitor (6) HTN (hypertension) Current Visit: Yes Status: Acute Assessment and Plan: - Chronic HTN on lisinopril and lasix Plan - Cont Lisinopril, may need to discontinue if creatinine rises - Cont IV lasix and metolazone (7) Mitral valve replaced Current Visit: Yes Status: Acute Assessment and Plan: - Mitral valve replacement and tricuspid repair in 2017 Plan: -Cont Eliquis DVT Prophylaxis: eliquis - Time Spent with Patient Total time spent is greater than 50% in coordination of care (as documented) at patient's floor/unit and/or counseling patient: Internal Medicine: Result - Labs CBC & Chem 7: 04/01/19 05:06 09/17/19 05:32 Labs: BMP 04/03/19 05:32 Sodium 139 Potassium 3.1 L Chloride 96 L Carbon Dioxide 32 H BUN 22 Creatinine 1.39 H Glucose 132 H Calcium 9.7 - ABG Interpretation ABG results: PT/INR, D-dimer PT 21.0 Seconds (9.4-12.1) H 03/30/19 04:12 <Maddy Mar - Last Filed: 04/03/19 12:48> (1) CHF exacerbation Qualifiers: Heart failure type: systolic Qualified Code(s): I50.23 - Acute on chronic systolic (congestive) heart failure (3) Diabetes Qualifiers: Diabetes mellitus type: type 2 Diabetes mellitus nursing home insulin use: unspecified 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 insulin 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 Diabetes mellitus complication status: with other specified complication Qualified Code(s): E11.69 - Type 2 diabetes mellitus with other specified complication (4) HLD (hyperlipidemia) Qualifiers: Hyperlipidemia type: unspecified Qualified Code(s): E78.5 - Hyperlipidemia, unspecified (5) HTN (hypertension) Qualifiers: Hypertension type: essential hypertension Qualified Code(s): I10 - Essential (primary) hypertension (7) UTI (urinary tract infection) Qualifiers: Urinary tract infection type: acute cystitis Hematuria presence: with hematuria Qualified Code(s): N30.01 - Acute cystitis with hematuria <Richard Best - Last Filed: 04/03/19 17:13> (1) CHF exacerbation Qualifiers: Heart failure type: systolic Qualified Code(s): I50.23 - Acute on chronic systolic (congestive) heart failure (4) Diabetes Qualifiers: Diabetes mellitus type: type 2 Diabetes mellitus nursing home insulin use: unspecified 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
[2019-04-03] MEDS: Insulin LISPRO 300 UNITS/3 ML VIAL SQ SCH ×4 (08:00→21:51)
[2019-04-03] MEDS: Furosemide 40 MG/4 ML VIAL IVP SCH ×2 (10:05→18:07)
[2019-04-03] MEDS: Apixaban 5 MG TABLET PO SCH ×2 (10:05→21:48)
[2019-04-03] MEDS: metOLazone 2.5 MG TABLET PO SCH (10:05)
[2019-04-03] MEDS: Nystatin POWDER 30 GM BOTTLE TP SCH ×3 (10:05→21:51)
[2019-04-03] MEDS: Nitrofurantoin (BID) 100 MG CAPSULE PO SCH (10:05)
[2019-04-03] MEDS: Ascorbic Acid 500 MG TABLET PO SCH (21:48)
[2019-04-03] MEDS: Melatonin 3 MG TABLET PO SCH (21:48)
[2019-04-03] MEDS: Cholecalciferol (D-3) 1,000 UNIT (25MCG) TABLET PO SCH (21:48)
--- NOTE | 2019-04-03 23:05 | Nephrology Progress Note ---
Date of Encounter: 04/03/19 Time of Encounter: 23:03 - Assessment and Plan (1) CULLEN (acute kidney injury) Current Visit: Yes Status: Acute Patient with CULELN with creatinine that fluctuates. With changes to her diuretics she has had significant urine output and her creatinine has been trending down. She has significant volume on board so we will continue with the current diuretic regimen until she has lost significant weight or until the renal function starts to worsen. She responded well to the changes to her diuretics. (2) CHF exacerbation Current Visit: Yes Status: Acute per primary team Improving. 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 She feels better. . Objective - Vital Signs Vital signs: Vital Signs Temp Pulse Resp BP Pulse Ox 04/03/19 19:12 97.7 F 97 19 123/87 96 04/03/19 16:46 97.7 F 96 19 111/78 94 04/03/19 11:27 97.7 F 87 17 103/70 90 04/03/19 07:20 97.8 F 96 18 113/74 91 04/03/19 03:47 97.8 F 95 17 109/75 96 04/02/19 23:45 97.7 F 105 17 117/69 94 Intake and Output 04/03/19 04/03/19 04/03/19 07:59 15:59 23:59 Intake Total 420 / 540 120 / 540 Output Total 650 / 1700 700 / 1700 350 / 1700 Balance -650 / -1160 -280 / -1160 -230 / -1160 Intake: Oral 420 / 540 120 / 540 Output: Urine 650 / 1700 700 / 1700 350 / 1700 Other: Meal Lunch Percent of Meal Consumed 70% # Voids 1 1 1 Blood Glucose* 135 124 168 - General Appearance General appearance: Present: well-developed, well-nourished, obese EENT: Present: ATNC Neck: Present: supple Cardiology: Present: edema, regular rate Gastrointestinal: Present: obese Integumentary: Present: warm and dry Neurologic: Present: alert and oriented x3 Musculoskeletal: Present: no cyanosis Psychiatric: Present: mood/affect appropriate - Lab 04/01/19 05:06 04/03/19 05:32 Consult Discharge Plan - Plan Referrals: Zachary Gutierres DO [Primary Care Provider] -
[2019-04-04 02:53] LABS: Calcium 9.9 mg/dL (8.6-10.3); Potassium 4.1 mEq/L (3.5-5.1)
--- NOTE | 2019-04-04 08:15 | Internal Med Progress Note ---
<Jacinta Jimenez - Last Filed: 04/04/19 12:43> Hospitalist Progress Note - Encounter Date of Encounter: 04/04/19 Time of Encounter: 10:30 - Subjective Interval History: Patient doing well this morning. She is able to lie down flat. No significant shortness of breath. No fever or chills reported overnight. Mainly concerned about her diet here. She has not had a bowel movement and mainly because she is not eating much as she does not like the food here. No chest pain or palpitations. - Exam Vitals: Temp Pulse Resp BP Pulse Ox 98.1 F 94 18 95/67 93 04/04/19 11:35 04/04/19 11:35 04/04/19 11:35 04/04/19 11:35 04/04/19 11:35 Exam: General: Patient is alert, no acute distress, oriented x 3 Respiratory: Good respiratory effort. Normal breath sounds. No wheezing or crackles. Cardiovascular: Regular rate and rhythm. s1 and s2 normal No clicks, rubs, gallops, or murmurs. Bilateral pedal edema Abdomen: Abdomen is soft, nontender. Bowel sounds are present Musculoskeletal: Spontaneously moving all extremities Skin: warm, dry, intact. Neuro: Alert oriented x 3 normal cranial nerves, no focal deficits - Assessment and Plan (1) CHF exacerbation Current Visit: Yes Status: Acute (2) CULLEN (acute kidney injury) Current Visit: Yes Status: Acute (3) Diabetes Current Visit: Yes Status: Acute (4) HLD (hyperlipidemia) Current Visit: Yes Status: Acute (5) HTN (hypertension) Current Visit: Yes Status: Acute (6) Mitral valve replaced Current Visit: Yes Status: Acute (7) UTI (urinary tract infection) Current Visit: Yes Status: Resolved (8) DVT prophylaxis Current Visit: Yes Status: Acute - Time Spent with Patient Total time spent is greater than 50% in coordination of care (as documented) at patient's floor/unit and/or counseling patient: Internal Medicine: Result - Labs CBC & Chem 7: 04/01/19 05:06 04/04/19 01:35 Labs: BMP 04/04/19 01:35 Sodium 138 Potassium 4.1 D Chloride 95 L Carbon Dioxide 31 H BUN 22 Creatinine 1.47 H Glucose 166 H Calcium 9.9 - ABG Interpretation ABG results: PT/INR, D-dimer PT 21.0 Seconds (9.4-12.1) H 03/30/19 04:12 Consult Discharge Plan - Plan Referrals: Zachary Gutierres DO [Primary Care Provider] - - Attending Attestation I saw evaluated and examined this patient and reviewed objective data including labs and my medical decision-making was reviewed with the Medical Student. I agree with the documented findings, disposition and treatment plan as described except to any changes set forth below. We independently had [id number] contact with the patient. Acute on chronic systolic congestive heart failure: Improving overall. Patient has had -4 L fluid balance. Currently on 60 mg IV Lasix twice daily. Will di scuss with nephrology about transitioning to oral dosing. Patient also receiving metolazone. Acute kidney injury on chronic kidney disease stage III: Creatinine 1.47 today. We will continue to monitor. Nephrology following. Acute cystitis: Completed treatment with Macrobid. Essential hypertension: Blood pressure is well controlled. Continue lisinopril.. Diabetes mellitus type 2: Well controlled. Continue current insulin regimen did continue diabetic diet. Moderate risk for complications <Richard Best R - Last Filed: 04/04/19 17:21> Hospitalist Progress Note - Encounter Date of Encounter: 04/04/19 Time of Encounter: 09:40 - Subjective Interval History: Patient reports no acute events overnight. Reports SOB and swelling is c ontinuing to improve. States she hasn't had a bowel movement in a few days but also says she hasn't eaten much since being in the hospital. Denies any chest pain, light headedness, cough, wheezing, nausea, vomiting diarrhea, or dysuria. - Exam Vitals: Temp Pulse Resp BP Pulse Ox 97.5 F L 94 18 108/71 96 04/04/19 07:24 04/04/19 07:24 04/04/19 07:24 04/04/19 07:24 04/04/19 07:24 Exam: Gen: AOx3 in no acute distress Eyes: ROBERT, EOMI with no conjunctivitis present Throat: Mucous membranes moist, with no pharyngeal erythema present CV: RRR with no murmur Resp: CTA in anterior lung rios. No crackles or rhales heard GI: Soft, edematous abdomen. Morbid obesity. No masses or organomegally present Ext: 3+ edema in luisito LE. Edema present in left arm but none in right arm. DP 2/4 Derm: bandage on left leg blister. Rash under abdominal fold improving Neuro: CN II-XII intact with no focal deficits - Assessment and Plan (1) CHF exacerbation Current Visit: Yes Status: Acute Assessment and Plan: creased SOB, orthopnea, and fluid retention at admission -Previous diagnosis of CHF in 2012, diabetes, HTN, HLD -Takes lasix, atorvastatin, and lisinopril -Mitral Valve replacement in 2016 - Stress test in 2017 showed EF 35%, large sized infarct in the inferior and inferiolateral wall, LV severly dilated - Chest X ray 03/28 limited low lung volume portable chest x-ray demonstrating bibasilar airspace opacity, most likely atelectasis. No acute process demonstrated otherwise - BNP 727 on 03/28 - TSH 4 and free T4 1.54 on 03/29 -echocardiogram LVEF 20-25%, severely dilated LV, global LV systolic dysfunction on 03/28 Plan: - Cont diuresis per nephrology recommendations. May need to stop if creatinine rises - Cont Lisinopril. May need to stop if creatinine - Cont low dose Beta harjinder. Monitor due to normally low blood pressure -Strict I/O -Cardiac diabetic diet - Fluid restrcitive diet to 1.5 L (2) CULLEN (acute kidney injury) Current Visit: Yes Status: Acute Assessment and Plan: -Creatinine 1.47 and eGFR 36 today down from 1.39 creatinine 04/03 - Increased fluid retention in Luisito LE and abdomen - Takes 120 mg Lasixs and 1 mg bumex PO at home - Nephrology consulted - Urine electrolyte panel showed urine creatinine 46, urine microalbumin 21, urine Na 64.7, Urine K 14.4, and urine total protein 9 on 03/28 - U/A positive for Nitrites and urine esterase large with many bacteria present on 03/29. Asymptomatic at the time. - Albumin 3.9 on 04/01 Plan - Cont Diuresis per nephrology recommendations. However may need to stop if worsening creatinine and urine output - Completed 5 day course of macrobid - Renally dose medications and avoid nephrotoxic medications when possible (3) Hypokalemia Current Visit: Yes Status: Acute Assessment and Plan: -Potassium 3.1 on 04/03 - Has been on lasix, metolazone, and albumin diuresis - Nephrology following -Replace potassium 40 meq BID on 04/03 - Potassium 4.1 today Plan: -Continue to monitor (4) Diabetes Current Visit: Yes Status: Acute Assessment and Plan: - Chronic Diabetes on pioglitazone at home - Glucose elevated but in the therapeutic range Plan - cont current insulin regiment - Cardiac diabetic diet (5) HLD (hyperlipidemia) Current Visit: Yes Status: Acute Assessment and Plan: - Cont home lipitor (6) HTN (hypertension) Current Visit: Yes Status: Acute Assessment and Plan: - Chronic HTN on lisinopril and lasix Plan - Cont Lisinopril, may need to discontinue if creatinine rises - Cont Diuresis per nephrology recommendations (7) Mitral valve replaced Current Visit: Yes Status: Acute Assessment and Plan: - Mitral valve replacement and tricuspid repair in 2016 Plan: -Cont Eliquis DVT Prophylaxis: eliquis - Time Spent with Patient Total time spent is greater than 50% in coordination of care (as documented) at patient's floor/unit and/or counseling patient: Plan of Care Discussed with: patient Internal Medicine: Result - Labs CBC & Chem 7: 04/01/19 05:06 04/04/19 01:35 Labs: BMP 04/04/19 01:35 Sodium 138 Potassium 4.1 D Chloride 95 L Carbon Dioxide 31 H BUN 22 Creatinine 1.47 H Glucose 166 H Calcium 9.9 - ABG Interpretation ABG results: PT/INR, D-dimer PT 21.0 Seconds (9.4-12.1) H 03/30/19 04:12 <Jacinta Jimenez - Last Filed: 04/04/19 12:43> (1) CHF exacerbation Qualifiers: Heart failure type: systolic Qualified Code(s): I50.23 - Acute on chronic systolic (congestive) heart failure (3) Diabetes Qualifiers: Diabetes mellitus type: type 2 Diabetes mellitus 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 assisted insulin use status Diabetes mellitus complication status: with other specified complication Qualified Code(s): E11.69 - Type 2 diabetes mellitus with other specified complication (4) HLD (hyperlipidemia) Qualifiers: Hyperlipidemia type: unspecified Qualified Code(s): E78.5 - Hyperlipidemia, unspecified (5) HTN (hypertension) Qualifiers: Hypertension type: essential hypertension Qualified Code(s): I10 - Essential (primary) hypertension (7) UTI (urinary tract infection) Qualifiers: Urinary tract infection type: acute cystitis Hematuria presence: with hematuria Qualified Code(s): N30.01 - Acute cystitis with hematuria <Richard Best - Last Filed: 04/04/19 17:21> (1) CHF exacerbation Qualifiers: Heart failure type: systolic Qualified Code(s): I50.23 - Acute on chronic systolic (congestive) heart failure (4) Diabetes Qualifiers: Diabetes mellitus type: type 2 Diabetes mellitus assisted insulin use: unspecified dedicated 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
[2019-04-04] MEDS ORDERED: metOLazone 2.5 MG TABLET PO SCH (08:30)
[2019-04-04] MEDS: Apixaban 5 MG TABLET PO SCH ×2 (09:39→20:58)
[2019-04-04] MEDS: Nystatin POWDER 30 GM BOTTLE TP SCH ×3 (09:40→20:59)
[2019-04-04] MEDS: Insulin LISPRO 300 UNITS/3 ML VIAL SQ SCH ×4 (09:40→20:59)
[2019-04-04] MEDS: Furosemide 40 MG/4 ML VIAL IVP SCH ×2 (10:23→17:16)
--- NOTE | 2019-04-04 14:19 | Nephrology Progress Note ---
Date of Encounter: 04/04/19 Time of Encounter: 14:14 - Assessment and Plan (1) CULLEN (acute kidney injury) Current Visit: Yes Status: Acute Patient with CULLEN with creatinine that fluctuates. GFR stable at 36. Continue current diuresis regimen. Avoid other nephrotoxins. Strict I/O Counseled on the importance of a low sodium diet, she states she does not follow a low sodium diet because it "has no taste". (2) CHF exacerbation Current Visit: Yes Status: Acute per primary team Improving. Qualifiers: Heart failure type: systolic Qualified Code(s): I50.23 - Acute on chronic systolic (congestive) heart failure (3) Diabetes Current Visit: Yes Status: Acute Recommend patient have better control of her diabetes per primary team Qualifiers: Diabetes mellitus type: type 2 Diabetes mellitus residential insulin use: unspecified residential insulin use status Diabetes mellitus complication status: with other specified complication Qualified Code(s): E11.69 - Type 2 diabetes mellitus with other specified complication (4) Hyperuricemia Current Visit: Yes Status: Acute Continue allopurinol. Subjective Principal diagnosis: cullen Interval history: Pt seen and examined. Is doing well. Admits shortness or breath and edema are improved. Denies nausea, vomiting, diarrhea. Objective - Vital Signs Vital signs: Vital Signs Temp Pulse Resp BP Pulse Ox 04/04/19 11:35 98.1 F 94 18 95/67 93 04/04/19 07:24 97.5 F L 94 18 108/71 96 04/04/19 05:04 97.7 F 94 19 106/68 97 04/03/19 23:34 98.0 F 88 18 106/71 93 04/03/19 19:12 97.7 F 97 19 123/87 96 04/03/19 16:46 97.7 F 96 19 111/78 94 Intake and Output 04/03/19 04/04/19 04/04/19 23:59 07:59 15:59 Intake Total 120 / 540 420 / 420 Output Total 350 / 1700 200 / 200 Balance -230 / -1160 -200 / 220 420 / 220 Intake: Oral 120 / 540 420 / 420 Output: Urine 350 / 1700 200 / 200 Other: Meal Lunch Percent of Meal Consumed 0% # Voids 1 3 2 Blood Glucose* 168 138 155 - General Appearance General appearance: Present: well-developed, well-nourished, obese EENT: Present: ATNC, hearing intact, vision intact Neck: Present: supple Respiratory: Present: clear Cardiology: Present: edema (+1 pitting edema noted to bilat lower extremities, generalized edema noted to abdomen.), normal S1, normal S2 Gastrointestinal: Present: normoactive bowel sounds, no tenderness, no guarding Integumentary: Present: no rash, warm and dry Neurologic: Present: alert and oriented x3 Musculoskeletal: Present: no deformities, no erythema Psychiatric: Present: mood/affect appropriate, cooperative - Lab 04/01/19 05:06 04/04/19 01:35 Most recent lab results 04/04/19 01:35 Calcium 9.9 Consult Discharge Plan - Plan Referrals: Zachary Gutierres DO [Primary Care Provider] -
[2019-04-04] MEDS: Melatonin 3 MG TABLET PO SCH (20:58)
[2019-04-04] MEDS: Cholecalciferol (D-3) 1,000 UNIT (25MCG) TABLET PO SCH (20:58)
[2019-04-04] MEDS: Ascorbic Acid 500 MG TABLET PO SCH (20:59)
[2019-04-05 03:09] LABS: Calcium 10.1 mg/dL (8.6-10.3); Potassium 3.3 mEq/L (3.5-5.1)
--- NOTE | 2019-04-05 07:35 | Internal Med Progress Note ---
<Jacinta Jimenez - Last Filed: 04/05/19 14:50> Hospitalist Progress Note - Encounter Date of Encounter: 04/05/19 Time of Encounter: 10:25 - Subjective Interval History: Patient lying down in bed. Appears comfortable. He is able to lie down flat without any significant shortness of breath. She complains of being tired. Overall she feels she is significantly improved since admission. - Exam Vitals: Temp Pulse Resp BP Pulse Ox 99.7 F H 125 20 139/83 99 04/05/19 11:38 04/05/19 11:38 04/05/19 11:38 04/05/19 11:38 04/05/19 11:38 Exam: General: Patient is alert, no acute distress, oriented x 3 Respiratory: Diminished breath sounds at both bases Cardiovascular: Regular rate and rhythm. s1 and s2 normal No clicks, rubs, gallops, or murmurs. Bilateral pedal edema present but improved Abdomen: Abdomen is soft, nontender. Bowel sounds are present Musculoskeletal: Spontaneously moving all extremities Skin: warm, dry, intact. Neuro: Alert oriented x 3 normal cranial nerves, no focal deficits - Assessment and Plan (1) CHF exacerbation Current Visit: Yes Status: Acute (2) CULLEN (acute kidney injury) Current Visit: Yes Status: Acute (3) Diabetes Current Visit: Yes Status: Acute (4) HLD (hyperlipidemia) Current Visit: Yes Status: Acute (5) HTN (hypertension) Current Visit: Yes Status: Acute (6) Mitral valve replaced Current Visit: Yes Status: Acute (7) UTI (urinary tract infection) Current Visit: Yes Status: Resolved (8) DVT prophylaxis Current Visit: Yes Status: Acute - Time Spent with Patient Total time spent is greater than 50% in coordination of care (as documented) at patient's floor/unit and/or counseling patient: Internal Medicine: Result - Labs CBC & Chem 7: 04/01/19 05:06 04/05/19 02:15 Labs: BMP 04/05/19 02:15 Sodium 139 Potassium 3.3 L Chloride 93 L Carbon Dioxide 35 H BUN 20 Creatinine 1.51 H Glucose 132 H Calcium 10.1 - ABG Interpretation ABG results: PT/INR, D-dimer PT 21.0 Seconds (9.4-12.1) H 03/30/19 04:12 Consult Discharge Plan - Plan Referrals: Stiltner,Zachary D, [Primary Care Provider] - - Attending Attestation I saw evaluated and examined this patient and reviewed objective data including labs and my medical decision-making was reviewed with the Medical Student. I agree with the documented findings, disposition and treatment plan as described except to any changes set forth below. We independently had [id number] contact with the patient. Acute on chronic systolic congestive heart failure: Continues to improve. Creatinine elevated again today. Will hold metolazone. Continue Lasix. Transition to oral Lasix today. Acute kidney injury on chronic kidney disease stage III: Creatinine 1.51 today. Stable overall. Nephrology following. Acute cystitis: Completed treatment with Macrobid. Essential hypertension: Controlled. Continue lisinopril. Diabetes mellitus type 2: Blood sugars intermittently elevated. Will add long- acting insulin coverage. Moderate risk for complications <Richard Best - Last Filed: 04/05/19 15:52> Hospitalist Progress Note - Encounter Date of Encounter: 04/05/19 Time of Encounter: 08:49 - Subjective Interval History: Patient denies any acute events overnight. Says that her SOB has improved and edema is improving. States she is having a cough. Patient was given an incentive spirometer but says that she won't use it because it makes her back, and ribs hurt. Denies any fever, chills, chest pain, nausea, vomiting, diarrhea, constipation, dysuria. - Exam Vitals: Temp Pulse Resp BP Pulse Ox 97.7 F 95 18 111/72 98 04/05/19 06:54 04/05/19 06:54 04/05/19 06:54 04/05/19 06:54 04/05/19 06:54 Exam: General: AOx3 in no acute distress Eyes: PERRL EOMI with no conjunctivitis CV: RRR with no murmur Lungs: Decreased breath sounds and shallowing breaths when sitting up in bed. Unable to assess posterior lung sounds. Anterior breath sounds CTA. Heart: RRR with no murmur GI: soft, non-tender, edematous abdomen. morbid obesity. Extremities: 3+ pitting edema in Luisito LE. 2+ edema in left upper extremity. No swelling in right arm. DP 2/4 luisito. Neuro: CN II- XII intact with no focal deficits. Strength in UE 4/5. Skin: Stasis ulcer on right rosales being cleaned and bandaged while in room. - Assessment and Plan (1) CHF exacerbation Current Visit: Yes Status: Acute Assessment and Plan: Increased SOB, orthopnea, and fluid retention at admission -Previous diagnosis of CHF in 2012, diabetes, HTN, HLD -Takes lasix, atorvastatin, and lisinopril -Mitral Valve replacement in 2017 - Stress test in 2017 showed EF 35%, large sized infarct in the inferior and inferiolateral wall, LV severly dilated - Chest X ray 03/28 limited low lung volume portable chest x-ray demonstrating bibasilar airspace opacity, most likely atelectasis. No acute process demonstrated otherwise - BNP 727 on 03/28 - TSH 4 and free T4 1.54 on 03/29 -echocardiogram LVEF 20-25%, severely dilated LV, global LV systolic dysfunction on 03/28 Plan: - Cont diuresis per nephrology recommendations. Stopping metolazone. Transition to lasix 60 mg PO bid. - Cont Lisinopril. - Cont low dose Beta harjinder. Monitor due to normally low blood pressure -Strict I/O -Cardiac diabetic diet - Fluid restrcitive diet to 1.5 L (2) CULLEN (acute kidney injury) Current Visit: Yes Status: Acute Assessment and Plan: -Creatinine 1.51 and eGFR 35 today down from 1.47 creatinine 04/03 - Increased fluid retention in Luisito LE and abdomen - Takes 120 mg Lasixs and 1 mg bumex PO at home - Nephrology consulted - Urine electrolyte panel showed urine creatinine 46, urine microalbumin 21, urine Na 64.7, Urine K 14.4, and urine total protein 9 on 03/28 - U/A positive for Nitrites and urine esterase large with many bacteria present on 03/29. Asymptomatic at the time. - Albumin 3.9 on 04/01 - Completed 5 day course of macrobid Plan - Cont Diuresis per nephrology recommendations. However may need to stop if worsening creatinine and urine output - Renally dose medications and avoid nephrotoxic medications when possible (3) Hypokalemia Current Visit: Yes Status: Acute Assessment and Plan: -Potassium 3.1 on 04/03 - Has been on lasix, metolazone, and albumin diuresis - Nephrology following -Replace potassium 40 meq BID on 04/03 - Potassium 3.3 today Plan: -Replace with 80 meq of K PO -Continue to monitor (4) Diabetes Current Visit: Yes Status: Acute Assessment and Plan: - Chronic Diabetes on pioglitazone at home - Glucose 132 today Plan - cont current insulin regiment - Cardiac diabetic diet (5) HLD (hyperlipidemia) Current Visit: Yes Status: Acute Assessment and Plan: -Cont home lipitor (6) HTN (hypertension) Current Visit: Yes Status: Acute Assessment and Plan: - Chronic HTN on lisinopril and lasix Plan - Cont Lisinopril, may need to discontinue if creatinine rises - Cont Diuresis per nephrology recommendations (7) Mitral valve replaced Current Visit: Yes Status: Acute Assessment and Plan: - Mitral valve replacement and tricuspid repair in 2016 Plan: -Cont Eliquis DVT Prophylaxis: eliquis - Time Spent with Patient Total time spent is greater than 50% in coordination of care (as documented) at patient's floor/unit and/or counseling patient: Internal Medicine: Result - Labs CBC & Chem 7: 04/01/19 05:06 04/05/19 02:15 Labs: BMP 04/05/19 02:15 Sodium 139 Potassium 3.3 L Chloride 93 L Carbon Dioxide 35 H BUN 20 Creatinine 1.51 H Glucose 132 H Calcium 10.1 - ABG Interpretation ABG results: PT/INR, D-dimer PT 21.0 Seconds (9.4-12.1) H 03/30/19 04:12 <Jacinta Jimenez - Last Filed: 04/05/19 14:50> (1) CHF exacerbation Qualifiers: Heart failure type: systolic Qualified Code(s): I50.23 - Acute on chronic systolic (congestive) heart failure (3) Diabetes Qualifiers: Diabetes mellitus type: type 2 Diabetes mellitus snf insulin use: 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 Diabetes mellitus complication status: with other specified complication Qualified Code(s): E11.69 - Type 2 diabetes mellitus with other specified complication (4) HLD (hyperlipidemia) Qualifiers: Hyperlipidemia type: unspecified Qualified Code(s): E78.5 - Hyperlipidemia, unspecified (5) HTN (hypertension) Qualifiers: Hypertension type: essential hypertension Qualified Code(s): I10 - Essential (primary) hypertension (7) UTI (urinary tract infection) Qualifiers: Urinary tract infection type: acute cystitis Hematuria presence: with hematuria Qualified Code(s): N30.01 - Acute cystitis with hematuria <Richard Best - Last Filed: 04/05/19 15:52> (1) CHF exacerbation Qualifiers: Heart failure type: systolic Qualified Code(s): I50.23 - Acute on chronic systolic (congestive) heart failure (4) Diabetes Qualifiers: Diabetes mellitus type: type 2 Diabetes mellitus snf insulin use: 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
[2019-04-05] MEDS: Furosemide 40 MG/4 ML VIAL IVP SCH (08:49)
[2019-04-05] MEDS: Apixaban 5 MG TABLET PO SCH ×2 (08:51→21:54)
[2019-04-05] MEDS: Insulin LISPRO 300 UNITS/3 ML VIAL SQ SCH ×4 (09:00→21:54)
[2019-04-05] MEDS: Nystatin POWDER 30 GM BOTTLE TP SCH ×3 (09:02→21:55)
[2019-04-05] MEDS: Acetaminophen 325 MG TABLET PO PRN (12:21)
--- NOTE | 2019-04-05 13:22 | Nephrology Progress Note ---
Date of Encounter: 04/05/19 Time of Encounter: 13:18 - Assessment and Plan (1) CULLEN (acute kidney injury) Current Visit: Yes Status: Acute Patient with CULLEN with creatinine that fluctuates. GFR stable at 35. Continue current diuresis regimen. Uop noted to only be 200 yesterday and 300 today, unsure if it is accurate given the weight is slightly decreased and cumulative I/O is - approximately 4 liters. Avoid other nephrotoxins. Strict I/O Counseled on the importance of a low sodium diet, she states she does not follow a low sodium diet because it "has no taste". Reinforced fluid restriction and low sodium diet to help with edema, she appears not interested in the discussion. F/U with Dr. Jim in 4-6 weeks after discharge. BMP 1 week after discharge. Continue current diuretic regimen, could consider switching back to PO to facilitate discharge when ready. (2) CHF exacerbation Current Visit: Yes Status: Acute per primary team Improving. Qualifiers: Heart failure type: systolic Qualified Code(s): I50.23 - Acute on chronic systolic (congestive) heart failure (3) Diabetes Current Visit: Yes Status: Acute Recommend patient have better control of her diabetes per primary team Qualifiers: Diabetes mellitus type: type 2 Diabetes mellitus skilled nursing insulin use: unspecified skilled nursing insulin use status Diabetes mellitus complication status: with other specified complication Qualified Code(s): E11.69 - Type 2 diabetes mellitus with other specified complication (4) Hyperuricemia Current Visit: Yes Status: Acute Continue allopurinol. Subjective Principal diagnosis: cullen Interval history: Pt seen and examined. Is doing well. Is sitting up on BSC for exam. Admits shortness of breath and edema are continuing to improve. Denies nausea, vomiting, diarrhea. Objective - Vital Signs Vital signs: Vital Signs Temp Pulse Resp BP Pulse Ox 04/05/19 11:38 99.7 F H 125 20 139/83 99 04/05/19 07:57 98 F 99 18 105/69 91 04/05/19 06:54 97.7 F 95 18 111/72 98 04/05/19 04:18 96 17 113/77 100 04/04/19 23:43 98.4 F 83 17 102/69 93 04/04/19 20:11 98.2 F 102 18 96/70 96 04/04/19 16:13 97.7 F 96 18 105/74 98 Intake and Output 04/04/19 04/05/19 04/05/19 23:59 07:59 15:59 Intake Total 400 / 520 120 / 520 Output Total 300 / 300 Balance 400 / 220 -180 / 220 Intake: Oral 400 / 520 120 / 520 Output: Urine 300 / 300 Other: Meal Breakfast Percent of Meal Consumed 50% # Voids 1 Weight 133.2 kg Blood Glucose* 159 142 188 Patient Weight 04/05/19 23:59 Weight 133.2 kg - General Appearance General appearance: Present: well-developed, well-nourished EENT: Present: ATNC, hearing intact, vision intact Neck: Present: supple Respiratory: Present: clear Cardiology: Present: edema (+1 pitting edema noted to bilat lower extrmeities, abdomen appears to have fluid as well. ), normal S1, normal S2 Gastrointestinal: Present: normoactive bowel sounds, no tenderness, no guarding Integumentary: Present: no rash, warm and dry Neurologic: Present: alert and oriented x3 Musculoskeletal: Present: no deformities, no erythema Psychiatric: Present: mood/affect appropriate, cooperative - Lab 04/01/19 05:06 04/05/19 02:15 Most recent lab results 04/05/19 02:15 Calcium 10.1 Consult Discharge Plan - Plan Referrals: Zachary Gutierres DO [Primary Care Provider] -
[2019-04-05] MEDS: Furosemide 40 MG TABLET PO SCH (18:03)
[2019-04-05] MEDS: Melatonin 3 MG TABLET PO SCH (21:53)
[2019-04-05] MEDS: Ascorbic Acid 500 MG TABLET PO SCH (21:53)
[2019-04-05] MEDS: Cholecalciferol (D-3) 1,000 UNIT (25MCG) TABLET PO SCH (21:54)
[2019-04-06 04:44] LABS: Calcium 9.6 mg/dL (8.6-10.3); Potassium 3.7 mEq/L (3.5-5.1)
[2019-04-06] MEDS ORDERED: Acetaminophen 325 MG TABLET PO ONE (06:13)
[2019-04-06] MEDS: Furosemide 40 MG TABLET PO SCH ×2 (08:59→16:42)
[2019-04-06] MEDS: Insulin DETEMIR 100 UNIT/ML X5UNITS SQ SCH (09:00)
[2019-04-06] MEDS: Acetaminophen 325 MG TABLET PO PRN ×3 (09:00→20:47)
[2019-04-06] MEDS: Insulin LISPRO 300 UNITS/3 ML VIAL SQ SCH ×4 (09:00→20:48)
[2019-04-06] MEDS: Apixaban 5 MG TABLET PO SCH ×2 (09:00→20:45)
[2019-04-06] MEDS: Nystatin POWDER 30 GM BOTTLE TP SCH ×3 (09:01→20:45)
--- NOTE | 2019-04-06 12:41 | Nephrology Progress Note ---
Date of Encounter: 04/06/19 Time of Encounter: 12:38 - Assessment and Plan (1) CULLEN (acute kidney injury) Current Visit: Yes Status: Acute Patient with CULLEN with creatinine that fluctuates. GFR stable at 34. Continue current diuresis regimen. Uop is not recorded accurately, pt states she is peeing large amounts several times. Avoid other nephrotoxins. Strict I/O Counseled on the importance of a low sodium diet, she states she does not follow a low sodium diet because it "has no taste". Reinforced fluid restriction and low sodium diet to help with edema, she appears not interested in the discussion. F/U with Dr. Jim in 4-6 weeks after discharge. BMP 1 week after discharge. Will sign off at this time, please reconsult if needed. (2) CHF exacerbation Current Visit: Yes Status: Acute per primary team Improving. Qualifiers: Heart failure type: systolic Qualified Code(s): I50.23 - Acute on chronic systolic (congestive) heart failure (3) Diabetes Current Visit: Yes Status: Acute Recommend patient have better control of her diabetes per primary team Qualifiers: Diabetes mellitus type: type 2 Diabetes mellitus senior living insulin use: unspecified senior living insulin use status Diabetes mellitus complication status: with other specified complication Qualified Code(s): E11.69 - Type 2 diabetes mellitus with other specified complication (4) Hyperuricemia Current Visit: Yes Status: Acute Continue allopurinol. Subjective Principal diagnosis: cullen Interval history: Pt seen and examined. Is doing well. Admits shortness of breath and edema are continuing to improve. Denies nausea, vomiting, diarrhea. Objective - Vital Signs Vital signs: Vital Signs Temp Pulse Resp BP Pulse Ox 04/06/19 10:52 99.1 F 108 18 100/66 94 04/06/19 07:34 100.8 F H 104 16 109/67 97 04/06/19 05:10 101.4 F H 112 14 109/65 100 04/06/19 01:14 99.4 F 103 14 106/70 91 04/05/19 19:13 100.1 F H 109 12 116/72 98 04/05/19 15:49 98.0 F 109 18 119/74 97 Intake and Output 04/05/19 04/06/19 04/06/19 23:59 07:59 15:59 Intake Total 240 / 240 Output Total 200 / 200 Balance 40 / 40 Intake: Oral 240 / 240 Output: Urine 200 / 200 Other: Meal Breakfast Percent of Meal Consumed 0% Weight 128.1 kg Blood Glucose* 225 199 317 Patient Weight 04/06/19 23:59 Weight 128.1 kg - General Appearance General appearance: Present: well-developed, well-nourished, obese EENT: Present: ATNC, hearing intact, vision intact Neck: Present: supple Respiratory: Present: clear Cardiology: Present: edema (Trace bilat lower extremity edema.), normal S1, normal S2 Gastrointestinal: Present: normoactive bowel sounds, no tenderness, no guarding Integumentary: Present: no rash, warm and dry Neurologic: Present: alert and oriented x3 Musculoskeletal: Present: no deformities, no erythema Psychiatric: Present: mood/affect appropriate, cooperative - Lab 04/01/19 05:06 04/06/19 03:39 Most recent lab results 04/06/19 03:39 Calcium 9.6 Consult Discharge Plan - Plan Referrals: Leonid Jim DO [Partnered Physician] - (office will call an appt. d/t scheduling) Zachary Gutierres DO [Primary Care Provider] - 04/10/19 12:30 pm (Please follow up as schedule )
[2019-04-06 13:12] LABS: Hematocrit 38.7 % (35.3-44.9); Hemoglobin 12.6 g/dL (11.5-15.4); Lymphocytes # 0.3 K/mcL (0.6-4.6); Mean Corpuscular HGB Conc 32.6 g/dL (31.6-35.5); Mean Corpuscular Hemoglobin 29.4 pg (28.0-33.3); Mean Corpuscular Volume 90.2 fL (83.0-100.0); Mean Platelet Volume 9.9 fL (9.4-12.4); Platelet Count 163 K/mcL (140-400); Red Blood Count 4.29 M/mcL (3.82-4.97); Red Cell Distribution Width 14.9 % (11.5-14.5)
[2019-04-06 13:21] LABS: White Blood Count 10.1 K/mcL (4.3-11.1)
--- NOTE | 2019-04-06 13:30 | Internal Med Progress Note ---
<Richard Best R - Last Filed: 04/06/19 15:34> Hospitalist Progress Note - Encounter Date of Encounter: 04/06/19 Time of Encounter: 08:50 - Subjective Interval History: Patient reports no acute events overnight. Reports recent onset of chills and subjective fever. States that her SOB and edema has improved. Denies any Light headedness, chest pain, palpitations, cough, wheeze, nausea, vomiting, diarrhea, or dysuria. - Exam Vitals: Temp Pulse Resp BP Pulse Ox 99.1 F 108 18 100/66 94 04/06/19 10:52 04/06/19 10:52 04/06/19 10:52 04/06/19 10:52 04/06/19 10:52 Exam: Gen: AOx3 shivering in no acute distress Eyes: ROBERT EOMI with no conjunctivitis present Throat: Moist mucous membranes with no pharyngeal erythema CV: RRR with no murmur Lungs: grossly diminished breath sounds,, no wheezes or crackles appreciated GI: soft, edematous abdomen, non-tender. Morbid obesity. No organomegally or masses palpated Ext: DP 2/4. 3+ pitting edema in luisito rosales. Left arm swelling 2+ edema. No swelling in right arm. Derm: Stasis ulcer right rosales. No other rashes visualized Neuro: CN II-XII intact with no focal deficit - Assessment and Plan (1) Fever Current Visit: Yes Status: Acute Assessment and Plan: -Fever of 101.4 today - Patient had uncomplicated UTI previously on admission treated with 5 day course of macrobid. Continues to deny dysuria - Chest X ray 04/06 Suggestive for atelectasis or pulmonary edema - Patient was given incentive spirometer and has remained non-complaint. Denies any cough, or sputum production - CBC on 04/06 showed WBC 10.1 - Patient remaine otherwise asymptomatic with no sinus pressure, sinus pain, cough, increased sputum production, abdominal pain, or diarrhea Plan: - Cont Tylenol 650 mg PO - Obtain U/A - Cont to Encourage incentive spirometery for atelectasis (2) CHF exacerbation Current Visit: Yes Status: Acute Assessment and Plan: - Increased SOB, orthopnea, and fluid retention at admission -Previous diagnosis of CHF in 2013, diabetes, HTN, HLD -Takes lasix, atorvastatin, and lisinopril -Mitral Valve replacement in 2017 - Stress test in 2017 showed EF 35%, large sized infarct in the inferior and inferiolateral wall, LV severly dilated - Chest X ray 03/28 limited low lung volume portable chest x-ray demonstrating bibasilar airspace opacity, most likely atelectasis. No acute process demonstrated otherwise - BNP 727 on 03/28 - TSH 4 and free T4 1.54 on 03/29 -echocardiogram LVEF 20-25%, severely dilated LV, global LV systolic dysfunction on 03/28 Plan: - Cont lasix 60 mg PO bid. - Cont Lisinopril. - Cont low dose Beta harjinder. Monitor due to normally low blood pressure -Strict I/O -Cardiac diabetic diet - Fluid restrcitive diet to 1.5 L (3) CULLEN (acute kidney injury) Current Visit: Yes Status: Acute Assessment and Plan: -Creatinine 1.55 and eGFR 35 today down from 1.51 creatinine 04/05 - Increased fluid retention in Luisito LE and abdomen - Takes 120 mg Lasixs and 1 mg bumex PO at home - Nephrology consulted - Urine electrolyte panel showed urine creatinine 46, urine microalbumin 21, urine Na 64.7, Urine K 14.4, and urine total protein 9 on 03/28 - U/A positive for Nitrites and urine esterase large with many bacteria present on 03/29. Asymptomatic at the time. - Albumin 3.9 on 04/01 - Completed 5 day course of macrobid Plan - Cont Diuresis PO per nephrology recommendations. However may need to stop if worsening creatinine and urine output - Renally dose medications and avoid nephrotoxic medications when possible (4) Hypokalemia Current Visit: Yes Status: Acute Assessment and Plan: -Potassium 3.1 on 04/03 - Has been on lasix, metolazone, and albumin diuresis - Nephrology following -Replaced potassium 40 meq BID on 04/03 - Potassium 3.7 today Plan: -Continue to monitor (5) Diabetes Current Visit: Yes Status: Acute Assessment and Plan: - Chronic Diabetes on pioglitazone at home - Glucose 317 today Plan - cont current insulin regiment - Cardiac diabetic diet (6) HLD (hyperlipidemia) Current Visit: Yes Status: Acute Assessment and Plan: Cont lipitor (7) HTN (hypertension) Current Visit: Yes Status: Acute Assessment and Plan: - Chronic HTN on lisinopril and lasix Plan - Cont Lisinopril, may need to discontinue if creatinine rises - Cont Diuresis per nephrology recommendations (8) Mitral valve replaced Current Visit: Yes Status: Acute Assessment and Plan: - Mitral valve replacement and tricuspid repair in 2017 Plan: -Cont Eliquis - Time Spent with Patient Total time spent is greater than 50% in coordination of care (as documented) at patient's floor/unit and/or counseling patient: Internal Medicine: Result - Labs CBC & Chem 7: 04/06/19 12:32 04/06/19 03:39 Labs: Short CBC 04/06/19 Range/Units 12:32 WBC 10.1 D (4.3-11.1) K/mcL Hgb 12.6 (11.5-15.4) g/dL Hct 38.7 (35.3-44.9) % Plt Count 163 (140-400) K/mcL BMP 04/06/19 03:39 Sodium 134 L Potassium 3.7 Chloride 92 L Carbon Dioxide 32 H BUN 20 Creatinine 1.55 H Glucose 189 H Calcium 9.6 - ABG Interpretation ABG results: PT/INR, D-dimer PT 21.0 Seconds (9.4-12.1) H 03/30/19 04:12 Consult Discharge Plan - Plan Referrals: Leonid Jim DO [Partnered Physician] - (office will call an appt. d/t scheduling) Zachary Gutierres DO [Primary Care Provider] - 04/10/19 12:30 pm (Please follow up as schedule ) <Jacinta Jimenez - Last Filed: 04/07/19 10:32> Hospitalist Progress Note - Encounter Date of Encounter: 04/06/19 Time of Encounter: 10:35 - Subjective Interval History: Patient has been having fever with MAXIMUM TEMPERATURE of 101.4 earlier this morning. She denies any chest pain or palpitations. No increased cough or sputum production. No dysuria. No abdominal pain. She did describe acute onset right lower back pain in her right CVA region. Nonradiating. - Exam Vitals: Temp Pulse Resp BP Pulse Ox 103.1 F H 123 22 106/66 92 04/06/19 20:15 04/06/19 20:15 04/06/19 20:15 04/06/19 20:15 04/06/19 20:15 Exam: General: Patient is alert, mild distress, oriented x 3 Respiratory: Good respiratory effort. Normal breath sounds. No wheezing or crackles. Cardiovascular: Regular rate and rhythm. s1 and s2 normal No clicks, rubs, gallops, or murmurs. No pedal edema Abdomen: Abdomen is soft, nontender. Tenderness in the right lumbar paraspinal region Bowel sounds are present Musculoskeletal: Spontaneously moving all extremities Skin: warm, dry, intact. Neuro: Alert oriented x 3 normal cranial nerves, no focal deficits - Assessment and Plan (1) CHF exacerbation Current Visit: Yes Status: Acute (2) CULLEN (acute kidney injury) Current Visit: Yes Status: Acute (3) Diabetes Current Visit: Yes Status: Acute (4) HLD (hyperlipidemia) Current Visit: Yes Status: Acute (5) HTN (hypertension) Current Visit: Yes Status: Acute (6) Mitral valve replaced Current Visit: Yes Status: Acute (7) UTI (urinary tract infection) Current Visit: Yes Status: Acute (8) DVT prophylaxis Current Visit: Yes Status: Acute - Time Spent with Patient Total time spent is greater than 50% in coordination of care (as documented) at patient's floor/unit and/or counseling patient: Internal Medicine: Result - Labs CBC & Chem 7: 04/07/19 04:14 04/07/19 04:14 Labs: Short CBC 04/06/19 Range/Units 12:32 WBC 10.1 D (4.3-11.1) K/mcL Hgb 12.6 (11.5-15.4) g/dL Hct 38.7 (35.3-44.9) % Plt Count 163 (140-400) K/mcL Neutrophils # 9.0 H (1.6-8.9) K/mcL BMP 04/06/19 03:39 Sodium 134 L Potassium 3.7 Chloride 92 L Carbon Dioxide 32 H BUN 20 Creatinine 1.55 H Glucose 189 H Calcium 9.6 Urine 04/06/19 Range/Units 17:15 Urine Color Dark Yellow (Yellow) Urine Clarity Cloudy A (Clear) Urine pH 5.5 (5.0-8.0) pH Units Ur Specific [place] 1.014 (1.010-1.025) Urine Protein 30 H (Neg-Trace) mg/dL Urine Glucose (UA) Normal (Normal) mg/dL - ABG Interpretation ABG results: PT/INR, D-dimer PT 21.0 Seconds (9.4-12.1) H 03/30/19 04:12 - Impressions Impressions Chest X-Ray 04/06/19 15:03 IMPRESSION: Limited, low lung volume study. Bibasilar atelectasis, versus pulmonary edema. Vascular congestion. Stable cardiomegaly. D/ / Demar Hart MD / Demar Hart MD Interpreting Provider: Demar Hart MD - Attending Attestation I saw evaluated and examined this patient and reviewed objective data including labs and my medical decision-making was reviewed with the Medical Student. I agree with the documented findings, disposition and treatment plan as described except to any changes set forth below. We independently had [id number] contact with the patient. Acute on chronic systolic congestive heart failure: Continues to improve. Creatinine 1.55 today. Continue oral Lasix. Fever: Patient having high-grade fever with no clear etiology. Will obtain urinalysis and chest x-ray again. No leukocytosis on labs. Await results of urinalysis and chest x-ray prior to deciding on any antibiotics. Acute kidney injury on chronic kidney disease stage III: Creatinine 1.51 today. Stable overall. Nephrology following. Acute cystitis: Completed treatment with Macrobid. Essential hypertension: Controlled. Continue lisinopril. Diabetes mellitus type 2: Continue current insulin regimen and diabetic diet Moderate risk for complications <Richard Best R - Last Filed: 04/06/19 15:34> (2) CHF exacerbation Qualifiers: Heart failure type: systolic Qualified Code(s): I50.23 - Acute on chronic systolic (congestive) heart failure (5) Diabetes Qualifiers: Diabetes mellitus type: type 2 Diabetes mellitus skilled nursing insulin use: unspecified skilled nursing insulin use status Diabetes mellitus complication status: with other specified complication Qualified Code(s): E11.69 - Type 2 diabetes mellitus with other specified complication (6) HLD (hyperlipidemia) Qualifiers: Hyperlipidemia type: unspecified Qualified Code(s): E78.5 - Hyperlipidemia, unspecified (7) HTN (hypertension) Qualifiers: Hypertension type: essential hypertension Qualified Code(s): I10 - Essential (primary) hypertension <Jacinta Jimenez - Last Filed: 04/07/19 10:32> (1) CHF exacerbation Qualifiers: Heart failure type: systolic Qualified Code(s): I50.23 - Acute on chronic systolic (congestive) heart failure (3) Diabetes Qualifiers: Diabetes mellitus type: type 2 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: unspecified skilled nursing insulin use status Diabetes mellitus complication status: with other specified complication Qualified Code(s): E11.69 - Type 2 diabetes mellitus with other specified complication (4) HLD (hyperlipidemia) Qualifiers: Hyperlipidemia type: unspecified Qualified Code(s): E78.5 - Hyperlipidemia, unspecified (5) HTN (hypertension) Qualifiers: Hypertension type: essential hypertension Qualified Code(s): I10 - Essential (primary) hypertension (7) UTI (urinary tract infection) Qualifiers: Urinary tract infection type: acute cystitis Hematuria presence: with hematuria Qualified Code(s): N30.01 - Acute cystitis with hematuria
[2019-04-06 13:40] LABS: Monocytes # 0.8 K/mcL (0.0-1.3); Platelet Estimate Normal (Normal)
[2019-04-06 17:30] LABS: Bilirubin,Urine Small (Negative); Blood,Urine Small (Negative); Clarity,Urine Cloudy (Clear); Color,Urine Dark Yellow (Yellow); Glucose,Urine (UA) Normal (Normal); Ketones,Urine Negative (Negative); Leukocyte Esterase,Urine Large (Negative); Nitrite,Urine Negative (Negative); PH,Urine 5.5 pH Units (5.0-8.0); Protein,Urine 30 mg/dL (Neg-Trace); Specific Gravity,Urine 1.014 (1.010-1.025); Urobilinogen,Urine Normal (Normal)
[2019-04-06 17:34] LABS: Bacteria,Urine Many per hpf (None-Few); Hyaline Casts,Urine Few per lpf (None-Few); Squamous Epithelial Cell,Urine Many per lpf (None-Few); WBC,Urine TNTC per hpf (0-3)
[2019-04-06] MEDS ORDERED: cefTRIAXone 1,000 MG in Water for inj. (sterile) 10 ML IVP SCH (19:00)
[2019-04-06] MEDS: Cholecalciferol (D-3) 1,000 UNIT (25MCG) TABLET PO SCH (20:45)
[2019-04-06] MEDS: Ascorbic Acid 500 MG TABLET PO SCH (20:46)
[2019-04-06] MEDS: Melatonin 3 MG TABLET PO SCH (20:46)
[2019-04-06 22:52] LABS: ABG Base Excess 10 mEq/L (-2 to 3); ABG HCO3 33 mEq/L (21-27); ABG Oxygen Saturation 96 % (95-98); ABG PCO2 35 mmHg (35-45); ABG PH 7.58 pH Units (7.32-7.45); ABG PO2 66 mmHg (85-104); ABG TCO2 34 mEq/L (20-26)
[2019-04-07 05:25] LABS: Hemoglobin 11.7 g/dL (11.5-15.4)
[2019-04-07 05:29] LABS: Hematocrit 37.6 % (35.3-44.9); Immature Granulocytes % 0.4 % (0-4); Immature Platelets 4.7 % (1.1-6.1); Lymphocytes # 0.2 K/mcL (0.6-4.6); Lymphocytes % 2.5 %; Mean Corpuscular HGB Conc 31.1 g/dL (31.6-35.5); Mean Corpuscular Hemoglobin 28.9 pg (28.0-33.3); Mean Corpuscular Volume 92.8 fL (83.0-100.0); Mean Platelet Volume 10.7 fL (9.4-12.4); Monocytes # 0.2 K/mcL (0.0-1.3); Monocytes % 2.5 %; Platelet Count 125 K/mcL (140-400); Red Blood Count 4.05 M/mcL (3.82-4.97); Red Cell Distribution Width 15.1 % (11.5-14.5); Segmented Neutrophils % 94.6 %; White Blood Count 6.9 K/mcL (4.3-11.1)
[2019-04-07 05:39] LABS: Neutrophils # 6.5 K/mcL (1.6-8.9)
[2019-04-07 05:40] LABS: Calcium 9.1 mg/dL (8.6-10.3); Potassium 3.9 mEq/L (3.5-5.1)
[2019-04-07] MEDS: Acetaminophen 325 MG TABLET PO PRN (05:54)
[2019-04-07 06:09] LABS: Platelet Estimate Normal (Normal)
[2019-04-07] MEDS: Insulin LISPRO 300 UNITS/3 ML VIAL SQ SCH ×3 (07:30→16:34)
[2019-04-07] MEDS ORDERED: 0.9 % Sodium Chloride 250 ML IVC ONE (07:33)
[2019-04-07] MEDS ORDERED: DiphenhydraMINE CREAM 28.4 GM TUBE TP PRN (08:09)
[2019-04-07] MEDS: Apixaban 5 MG TABLET PO SCH (08:11)
[2019-04-07] MEDS: Insulin DETEMIR 100 UNIT/ML X5UNITS SQ SCH (08:12)
[2019-04-07] MEDS: Nystatin POWDER 30 GM BOTTLE TP SCH ×2 (08:12→14:46)
[2019-04-07] MEDS ORDERED: levoFLOXacin 750 MG/150 ML 750 MG/150 ML BAG IVPB SCH (09:00)
--- NOTE | 2019-04-07 09:24 | Internal Med Progress Note ---
<Jacinta Jimenez - Last Filed: 04/07/19 14:09> Hospitalist Progress Note - Encounter Date of Encounter: 04/07/19 Time of Encounter: 10:33 - Exam Vitals: Temp Pulse Resp BP Pulse Ox 100.5 F H 102 20 80/49 95 04/07/19 08:36 04/07/19 10:04 04/07/19 10:04 04/07/19 10:04 04/07/19 10:04 - Assessment and Plan (1) CHF exacerbation Current Visit: Yes Status: Acute (2) CULLEN (acute kidney injury) Current Visit: Yes Status: Acute (3) Diabetes Current Visit: Yes Status: Acute (4) HLD (hyperlipidemia) Current Visit: Yes Status: Acute (5) HTN (hypertension) Current Visit: Yes Status: Acute (6) Mitral valve replaced Current Visit: Yes Status: Acute (7) UTI (urinary tract infection) Current Visit: Yes Status: Acute (8) DVT prophylaxis Current Visit: Yes Status: Acute - Time Spent with Patient Total time spent is greater than 50% in coordination of care (as documented) at patient's floor/unit and/or counseling patient: Internal Medicine: Result - Labs CBC & Chem 7: 04/07/19 04:14 04/07/19 04:14 Labs: Short CBC 04/06/19 04/07/19 Range/Units 12:32 04:14 WBC 10.1 D 6.9 (4.3-11.1) K/mcL Hgb 12.6 11.7 (11.5-15.4) g/dL Hct 38.7 37.6 (35.3-44.9) % Plt Count 163 125 L (140-400) K/mcL Neutrophils # 9.0 H 6.5 (1.6-8.9) K/mcL BMP 04/07/19 04:14 Sodium 135 L Potassium 3.9 Chloride 91 L Carbon Dioxide 33 H BUN 32 H Creatinine 2.19 H Glucose 113 H Calcium 9.1 Urine 04/06/19 Range/Units 17:15 Urine Color Dark Yellow (Yellow) Urine Clarity Cloudy A (Clear) Urine pH 5.5 (5.0-8.0) pH Units Ur Specific [place] 1.014 (1.010-1.025) Urine Protein 30 H (Neg-Trace) mg/dL Urine Glucose (UA) Normal (Normal) mg/dL - ABG Interpretation ABG results: ABG ABG pH 7.58 pH Units (7.32-7.45) H 04/06/19 22:49 ABG pCO2 35 mmHg (35-45) 04/06/19 22:49 ABG pO2 66 mmHg (85-104) L 04/06/19 22:49 ABG O2 Saturation 96 % (95-98) 04/06/19 22:49 PT/INR, D-dimer PT 21.0 Seconds (9.4-12.1) H 03/30/19 04:12 - Impressions Impressions Chest X-Ray 04/06/19 15:03 IMPRESSION: Limited, low lung volume study. Bibasilar atelectasis, versus pulmonary edema. Vascular congestion. Stable cardiomegaly. D/ / Demar Hart MD / Demar Hart MD Interpreting Provider: Demar Hart MD Chest X-Ray 04/07/19 07:54 IMPRESSION: 1. Cardiomegaly with mild interstitial edema. 2. Low lung volumes. D/ / 04/07/2019 08:21:08 Gwen Conway MD / ruth ann Interpreting Provider: Gwen Conway MD Consult Discharge Plan - Plan Referrals: Leonid Jim DO [Partnered Physician] - (office will call an appt. d/t scheduling) Zachary Gutierres DO [Primary Care Provider] - 04/10/19 12:30 pm (Please follow up as schedule ) - Attending Attestation I saw evaluated and examined this patient and reviewed objective data including labs and my medical decision-making was reviewed with the Resident Physician, Tariq Nielsen. I agree with the documented findings, disposition and treatment plan as described except to any changes set forth below. We independently had [id number] contact with the patient. Patient lying down in bed and complaining of pain in her back. She has continued to have episodes of fever. Was started on Rocephin last night after she was found to have possible urinary tract infection based on her urinalysis. However she developed a rash in her arms this morning. We will stop Rocephin and transition it to Levaquin. She is also been hypotensive this morning her and has developed acute kidney injury. Monitor input and output. Lactic acid normal so do not suspect shocked at this time. Hold antihypertensive med ications. Monitor blood pressure closely. Repeat chest x-ray shows cardiomegaly and interstitial edema however given that patient is hypotensive, we will treat with fluids intravenously cautiously. Hold Lasix. With regards to her back pain, it could be from muscle spasm because it was sudden in onset and she has right paraspinal tenderness. Being treated with Flexeril. If symptoms do not improve, consider CT scan of the abdomen and pelvis. High risk for complications. Patient does have mildly elevated troponin at 0.4. Likely due to underlying cardiomyopathy along with demand ischemia and CULLEN on chronic kidney disease. Patient is already on Eliquis. Will continue this while we trend troponins. EKG shows sinus tachycardia. <Tariq Nielsen - Last Filed: 04/07/19 15:05> Hospitalist Progress Note - Encounter Date of Encounter: 04/07/19 Time of Encounter: 07:30 - Subjective Interval History: Pt seen and examined at bedside. Pt reported to have been confused overnight. ABG was obtained which demonstrated pH of 7.58. The night team elected to hold Lasix. Pt currently resting in bed. She is somewhat confused at A&Ox2. Reports pain but unable to localize. Denies fever, chills, shortness of breath, nausea, or vomiting. - Exam Vitals: Temp Pulse Resp BP Pulse Ox 100.5 F H 96 20 100/66 92 04/07/19 08:36 04/07/19 08:36 04/07/19 08:36 04/07/19 09:05 04/07/19 08:36 Exam: Gen: obese female in mild distress Head: NCAT Eyes: PERLL, EOMI with no conjunctivitis present Throat: Dry mucous membranes with no pharyngeal erythema or oral thrust Neck: supple, trachea midline Heart: tachycardic +S1 +S2 No murmurs, clicks, or rubs Lungs: grossly diminished breath sounds. Non-labored breathing on 2lpm supplemental O2 via NC. no wheezes or crackles appreciated GI: soft, edematous and obese abdomen, non-tender. Ext: warm, radial pulses palpable and symmetrical. 3+ pitting edema in luisito rosales. edema of UEs improved Skin Stasis ulcer right rosaels. No other rashes or lesions visualized Neuro: A&Ox2. Strength 5/5 in all 4 extremities. Sensation intact. No facial droop or slurred speech - Assessment and Plan (1) Metabolic alkalosis Current Visit: Yes Status: Acute Assessment and Plan: As seen with ABG from overnight with pH of 7.58, pCO2 35, and bicarb of 33 2/2 aggressive diuresis Will gently hydrate with IV fluids and continue to monitor closely Hold diuretics today (2) CHF exacerbation Current Visit: Yes Status: Acute Assessment and Plan: - Increased SOB, orthopnea, and fluid retention at admission - Mitral Valve replacement in 2017 - Stress test in 2017 showed EF 35%, large sized infarct in the inferior and inferiolateral wall, LV severly dilated - Chest X ray 03/28 limited low lung volume portable chest x-ray demonstrating bibasilar airspace opacity, most likely atelectasis. No acute process demonst rated otherwise - CXR from 04/06/19 showed low lung volumes with atelectasis vs pulmonary edema - BNP 727 on 03/28 - echocardiogram from 03/28 demonstrated LVEF 20-25%, severely dilated LV, global LV systolic dysfunction Plan: - Hold further diuresis with contraction alkalosis - Cont Lisinopril. - Cont low dose Beta harjinder. Monitor due to normally low blood pressure - Strict I/O - Cardiac diabetic diet - Fluid restrcitive diet to 1.5 L (3) UTI (urinary tract infection) Current Visit: Yes Status: Acute Assessment and Plan: As seem on UA from 03/29/19 Completed a 5 day course of Macrobid Pt began spiking a fever overnight on 04/05 Repeated UA during other workup which was suggestive of continued UTI Started pt on IV Rocephin on 04/06, however pt noted to have urticarial rash on bilateral arms this AM Plan Stop Rocephin Start Levaquin 750mg q48hr at this time empirically (4) CULLEN (acute kidney injury) Current Visit: Yes Status: Acute Assessment and Plan: - Creatinine increased to 2.19 today from 1.55 yesterday - Initial CULLEN likely related to cardiorenal with CHF exacerbation - However today the CULLEN is suspected to be pre-renal in nature due to dehydration and contraction alkalosis - Nephrology following Plan - hold further diuretics at this time - gentle iv fluid hydration - continue to monitor labs and UOP - Avoid nephrotoxins as able and renally dose medications (5) Diabetes Current Visit: Yes Status: Acute Assessment and Plan: - Chronic Diabetes on pioglitazone at home - Glucose 113 today Plan - cont current insulin regiment - Cardiac diabetic diet (6) HLD (hyperlipidemia) Current Visit: Yes Status: Acute Assessment and Plan: continue home statin (7) HTN (hypertension) Current Visit: Yes Status: Acute Assessment and Plan: hx of HTN Currently holding home BB and other HTN meds as pt's BP is decreased today at 100/66 (8) Mitral valve replaced Current Visit: Yes Status: Acute Assessment and Plan: on Eliquis DVT Prophylaxis: on Eliquis - Time Spent with Patient Total time spent is greater than 50% in coordination of care (as documented) at patient's floor/unit and/or counseling patient: Greater than 35 minutes Internal Medicine: Result - Labs CBC & Chem 7: 04/07/19 04:14 04/07/19 04:14 Labs: Short CBC 04/06/19 04/07/19 Range/Units 12:32 04:14 WBC 10.1 D 6.9 (4.3-11.1) K/mcL Hgb 12.6 11.7 (11.5-15.4) g/dL Hct 38.7 37.6 (35.3-44.9) % Plt Count 163 125 L (140-400) K/mcL Neutrophils # 9.0 H 6.5 (1.6-8.9) K/mcL BMP 04/07/19 04:14 Sodium 135 L Potassium 3.9 Chloride 91 L Carbon Dioxide 33 H BUN 32 H Creatinine 2.19 H Glucose 113 H Calcium 9.1 Urine 04/06/19 Range/Units 17:15 Urine Color Dark Yellow (Yellow) Urine Clarity Cloudy A (Clear) Urine pH 5.5 (5.0-8.0) pH Units Ur Specific [place] 1.014 (1.010-1.025) Urine Protein 30 H (Neg-Trace) mg/dL Urine Glucose (UA) Normal (Normal) mg/dL - ABG Interpretation ABG results: ABG ABG pH 7.58 pH Units (7.32-7.45) H 04/06/19 22:49 ABG pCO2 35 mmHg (35-45) 04/06/19 22:49 ABG pO2 66 mmHg (85-104) L 04/06/19 22:49 ABG O2 Saturation 96 % (95-98) 04/06/19 22:49 PT/INR, D-dimer PT 21.0 Seconds (9.4-12.1) H 03/30/19 04:12 - Impressions Impressions Chest X-Ray 04/06/19 15:03 IMPRESSION: Limited, low lung volume study. Bibasilar atelectasis, versus pulmonary edema. Vascular congestion. Stable cardiomegaly. D/ / Demar Hart MD / Demar Hart MD Interpreting Provider: Demar Hart MD Chest X-Ray 04/07/19 07:54 IMPRESSION: 1. Cardiomegaly with mild interstitial edema. 2. Low lung volumes. 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 use status Diabetes mellitus complication status: with other specified complication Qualified Code(s): E11.69 - Type 2 diabetes mellitus with other specified complication (4) HLD (hyperlipidemia) Qualifiers: Hyperlipidemia type: unspecified Qualified Code(s): E78.5 - Hyperlipidemia, unspecified (5) HTN (hypertension) Qualifiers: Hypertension type: essential hypertension Qualified Code(s): I10 - Essential (primary) hypertension (7) UTI (urinary tract infection) Qualifiers: Urinary tract infection type: acute cystitis Hematuria presence: with hematuria Qualified Code(s): N30.01 - Acute cystitis with hematuria <Tariq Nielsen - Last Filed: 04/07/19 15:05> (2) CHF exacerbation Qualifiers: Heart failure type: systolic Qualified Code(s): I50.23 - Acute on chronic systolic (congestive) heart failure (3) UTI (urinary tract infection) Qualifiers: Urinary tract infection type: acute cystitis Hematuria presence: with hematuria Qualified Code(s): N30.01 - Acute cystitis with hematuria (5) Diabetes Qualifiers: Diabetes mellitus type: type 2 Diabetes mellitus prison insulin use: unspecified prison insulin use status Diabetes mellitus complication status: with other specified complication Qualified Code(s): E11.69 - Type 2 diabetes mellitus with other specified complication (6) HLD (hyperlipidemia) Qualifiers: Hyperlipidemia type: unspecified Qualified Code(s): E78.5 - Hyperlipidemia, unspecified (7) HTN (hypertension) Qualifiers: Hypertension type: essential hypertension Qualified Code(s): I10 - Essential (primary) hypertension
[2019-04-07] MEDS ORDERED: 0.9 % Sodium Chloride 500 ML IVC SCH (09:30)
[2019-04-07] MEDS ORDERED: 0.9 % Sodium Chloride 500 ML ONE (09:45)
[2019-04-07] MEDS ORDERED: Albumin 25% 25gram/100mL 25 GM/100 ML IV.SOLN IVPB ONE (11:47)
[2019-04-07] MEDS ORDERED: Acetaminophen 325 MG TABLET PO PRN (12:17)
--- NOTE | 2019-04-07 21:37 | Event Note ---
Date of Encounter: 04/07/19 Time of Encounter: 21:32 Notified by nurse of patients low blood pressures and worsening mental status. Blood pressure readings unreliable automatically, confirmed hypotensive with manual readings. Assessed at bedside by myself and Dr Bradford. Patient able to follow commands but has worsening mental status. Will obtain stat head and chest CT and labs, will hold off on additional fluids until imaging complete. Nurse to notify of any changes.
[2019-04-07 22:09] LABS: Basophils % 0.2 %; Mean Corpuscular HGB Conc 32.2 g/dL (31.6-35.5)
[2019-04-07 22:11] LABS: Hematocrit 34.8 % (35.3-44.9); Hemoglobin 11.2 g/dL (11.5-15.4); Immature Granulocytes % 0.5 % (0-4); Immature Platelets 6.5 % (1.1-6.1); Lymphocytes # 0.2 K/mcL (0.6-4.6); Lymphocytes % 2.9 %; Mean Corpuscular Hemoglobin 29.3 pg (28.0-33.3); Mean Corpuscular Volume 91.1 fL (83.0-100.0); Mean Platelet Volume 10.7 fL (9.4-12.4); Monocytes # 0.3 K/mcL (0.0-1.3); Monocytes % 3.8 %; Neutrophils # 6.1 K/mcL (1.6-8.9); Red Blood Count 3.82 M/mcL (3.82-4.97); Segmented Neutrophils % 92.6 %; White Blood Count 6.6 K/mcL (4.3-11.1)
[2019-04-07 22:13] LABS: Platelet Count 91 K/mcL (140-400)
[2019-04-07 22:28] LABS: Albumin 3.4 g/dL (3.5-5.7); Albumin/Globulin Ratio 1.5 (1.1-2.2); Bilirubin,Total 2.8 mg/dL (0.3-1.0); Calcium 8.5 mg/dL (8.6-10.3); Globulin 2.3 g/dL (2.4-3.5); Potassium 4.1 mEq/L (3.5-5.1); Total Protein 5.7 g/dL (6.4-8.9)
[2019-04-07 22:34] LABS: Platelet Estimate Slight Decrease (Normal)
[2019-04-07 23:10] LABS: Acinetobacter baumannii by PCR Not Detected (Not Detect); Candida albicans by PCR Not Detected (Not Detect); Candida glabrata by PCR Not Detected (Not Detect); Candida krusei by PCR Not Detected (Not Detect); Candida parapsilosis by PCR Not Detected (Not Detect); Candida tropicalis by PCR Not Detected (Not Detect); Enterobacter cloacae Cmplx PCR Not Detected (Not Detect); Enterobacteriaceae by PCR Not Detected (Not Detect); Enterococcus by PCR Not Detected (Not Detect); Escherichia coli by PCR Not Detected (Not Detect); Klebsiella oxytoca by PCR Not Detected (Not Detect); Klebsiella pneumoniae by PCR Not Detected (Not Detect); Proteus by PCR Not Detected (Not Detect); Pseudomonas aeruginosa by PCR Not Detected (Not Detect); Serratia marcescens by PCR Not Detected (Not Detect); Staphylococcus aureus by PCR DETECTED (Not Detect); Streptococcus agalactiae(B)PCR Not Detected (Not Detect); Streptococcus by PCR Not Detected (Not Detect); Streptococcus pneumoniae PCR Not Detected (Not Detect); Streptococcus pyogenes (A) PCR Not Detected (Not Detect); mecA Methicillin-Resist Gene DETECTED (Not Detect)
[2019-04-08 00:31] LABS: ABG Base Excess 8 mEq/L (-2 to 3); ABG HCO3 30 mEq/L (21-27); ABG Oxygen Saturation 97 % (95-98); ABG PCO2 35 mmHg (35-45); ABG PH 7.55 pH Units (7.32-7.45); ABG PO2 75 mmHg (85-104); ABG TCO2 31 mEq/L (20-26)
[2019-04-08] MEDS: Insulin LISPRO 300 UNITS/3 ML VIAL SQ SCH (00:34)
[2019-04-08] MEDS: Ascorbic Acid 500 MG TABLET PO SCH (00:34)
[2019-04-08] MEDS: Apixaban 5 MG TABLET PO SCH (00:34)
[2019-04-08] MEDS: Cholecalciferol (D-3) 1,000 UNIT (25MCG) TABLET PO SCH (00:35)
[2019-04-08] MEDS ORDERED: *HR* Midazolam HCl 2 MG/2 ML VIAL ONE (00:57)
[2019-04-08] MEDS ORDERED: *HR* FentaNYL (PF) 100 MCG/2 ML VIAL ONE (00:59)
[2019-04-08] MEDS: Nystatin POWDER 30 GM BOTTLE TP SCH (01:17)
[2019-04-08] MEDS: Melatonin 3 MG TABLET PO SCH (01:19)
[2019-04-08] MEDS ORDERED: *HR* FentaNYL (PF) 100 MCG/2 ML VIAL IVP ONE (01:28)
[2019-04-08] MEDS ORDERED: *HR* Midazolam HCl 2 MG/2 ML VIAL IVP ONE (01:29)
[2019-04-08] MEDS ORDERED: Dextrose Gel 15 GM/37.5 ML TUBE PO PRN ×2 (02:06)
[2019-04-08] MEDS ORDERED: D5% in Water 1,000 ML IVC PRN (02:06)
[2019-04-08] MEDS ORDERED: *HR* Dextrose 50 % in Water (Syg) 50 ML SYRINGE IVP PRN (02:06)
[2019-04-08] MEDS ORDERED: Acetaminophen 325 MG TABLET PO PRN (02:06)
[2019-04-08] MEDS ORDERED: Ondansetron ODT 4 MG TAB.RAPDIS SL PRN (02:06)
[2019-04-08] MEDS ORDERED: Naloxone 0.4 MG/ML INJ IVP PRN (02:06)
[2019-04-08] MEDS ORDERED: Norepinephrine 4 MG in 0.9 % Sodium Chloride 250 ML IVC SCH (02:30)
[2019-04-08 04:48] LABS: Basophils % 0.1 %; Hemoglobin 11.3 g/dL (11.5-15.4); Mean Corpuscular Volume 92.3 fL (83.0-100.0)
[2019-04-08 04:50] LABS: Hematocrit 35.9 % (35.3-44.9); Immature Granulocytes % 0.9 % (0-4); Immature Platelets 8.4 % (1.1-6.1); Lymphocytes # 0.2 K/mcL (0.6-4.6); Mean Corpuscular HGB Conc 31.5 g/dL (31.6-35.5); Mean Platelet Volume 11.2 fL (9.4-12.4); Monocytes # 0.4 K/mcL (0.0-1.3); Monocytes % 4.5 %; Neutrophils # 7.1 K/mcL (1.6-8.9); Platelet Count 82 K/mcL (140-400); Red Blood Count 3.89 M/mcL (3.82-4.97); Red Cell Distribution Width 14.9 % (11.5-14.5); Segmented Neutrophils % 91.5 %; White Blood Count 7.8 K/mcL (4.3-11.1)
--- NOTE | 2019-04-08 05:05 | Event Note ---
Date of Encounter: 04/08/19 Time of Encounter: 05:01 Central Venous Catheter (CVC, Central Line) Placement Date: 04/08/2019 Time: 1:30am Indication: Hemodynamic monitoring/Intravenous access/ hypotension unresponsive to fluids requiring access for pressor support Attending: A time-out was completed verifying correct patient, procedure, site, positioning, and special equipment if applicable. The patient was placed in a dependent position appropriate for central line placement based on the vein to be cannulated. The patients right neck was prepped and draped in sterile fashion. 1% Lidocaine was used to anesthetize the surrounding skin area. A triple lumen 9-Hungarian Cordis catheter was introduced into the the internal j ugular using the Seldinger technique and under ultrasound guidance. The catheter was threaded smoothly over the guide wire and appropriate blood return was obtained. Each lumen of the catheter was evacuated of air and flushed with sterile saline. The catheter was then sutured in place to the skin and a sterile dressing applied. Perfusion to the extremity distal to the point of catheter insertion was checked and found to be adequate. was present for the entire procedure. Estimated Blood Loss: 5ml The patient tolerated the procedure well and there were no complications CXR verified position with no procedural complications.
[2019-04-08 05:06] LABS: Calcium 8.2 mg/dL (8.6-10.3); Potassium 4.1 mEq/L (3.5-5.1)
[2019-04-08 05:09] LABS: Platelet Estimate Decreased (Normal)
[2019-04-08] MEDS ORDERED: *HR* Heparin 5,000 UNIT/ML VIAL IVP PRN ×2 (05:13)
[2019-04-08] MEDS ORDERED: Heparin 25,000 UNIT/250 ML D5W 25,000 UNIT/250 ML IV.SOLN IVC SCH ×2 (05:15→05:30)
--- NOTE | 2019-04-08 05:21 | Event Note ---
Date of Encounter: 04/08/19 Time of Encounter: 05:00 Patient transferred to ICU due to worsening mental status and hypotension. Central line placed, and patient was started on Levophed. Patient has low ejection fraction as well as edema/ascites so will avoid IV fluids. Patient's troponin continues to elevate, had been previously on Eliquis however will be starting patient on heparin drip at this point and holding further Eliquis dosing. Cardiology consulted.
[2019-04-08 05:58] LABS: INR 3.5; Prothrombin Time 40.3 Seconds (9.4-12.1)
[2019-04-08 06:00] LABS: Activated Partial Thrombo Time 36.8 Seconds (26.0-36.0)
[2019-04-08] MEDS ORDERED: Insulin LISPRO 300 UNITS/3 ML VIAL SQ SCH ×2 (07:30→21:00)
[2019-04-08] MEDS ORDERED: Aztreonam 2,000 MG in Water for inj. (sterile) 20 ML IVP SCH (08:00)
--- NOTE | 2019-04-08 08:19 | Pulmonology Consult Note ---
<Mohan Ward F - Last Filed: 04/08/19 08:19> Date of Encounter: 04/08/19 Time of Encounter: 08:19 Past Med Surg Social Fam HX - Past Medical History Medical history: arthritis, cardiomyopathy, CHF, COPD, diabetes, hypertension, myocardial infarction, pulmonary embolus, valvular heart disease (mitral valve replacement ) Additional medical history: nueropathy,arrythimia, Psychiatric history: no psych history - Past Surgical History Surgical History: heart valve replacement (Mitral valve replacement and tricuspid repair 10/05/2016, [place]), pacemaker/AICD Additional surgical history: defibrillator, 2017 mitral valve replaced and tric uspid repair - Social History Smoking Status: Never smoker Smokeless Tobacco Status: No Alcohol use: none Drug use: none Medications and Allergies Apixaban [Eliquis] 5 mg PO BID 03/22/19 [History] Atorvastatin [Lipitor] 20 mg PO HS 03/22/19 [History] Bumetanide [Bumex] 1 mg PO DAILY 03/22/19 [History] Furosemide [Lasix] 80 mg PO QAM 03/22/19 [History] Lisinopril [Zestril] 10 mg PO DAILY 03/22/19 [History] Pioglitazone [Actos] 30 mg PO DAILY 03/22/19 [History] Acetaminophen/Diphenhydramine [Percogesic 325-12.5 mg Tablet] 1 tab PO HS [History] Ascorbic Acid [Vitamin C] 500 mg PO HS 03/28/19 [History] Cholecalciferol (D-3) [Vitamin D] 2,000 unit PO HS 03/28/19 [History] Furosemide [Lasix] 40 mg PO QPM 03/28/19 [History] Melatonin 3 mg PO HS 03/28/19 [History] Multivit-Min/FA/Lycopen/Lutein [Adults 50+ Multivitamin Tablet] 1 tab PO HS 03/28/19 [History] Allergy/AdvReac Type Severity Reaction Status Date / Time cephalexin [From Keflex] Allergy Hives Verified 03/28/19 18:43 aspirin AdvReac Nose Bleed Verified 03/28/19 18:43 All Systems: The remainder of the systems were reviewed and are negative Physical Examination Vital Signs: Vital Signs, Last 4 Hours Pulse Resp BP Pulse Ox 04/08/19 07:00 111 22 100/67 96 04/08/19 06:00 110 30 85/61 94 04/08/19 05:00 114 24 104/78 95 Results - Laboratory Findings CBC and BMP: 04/08/19 04:30 04/08/19 04:30 ABG ABG pH 7.55 pH Units (7.32-7.45) H 04/08/19 00:28 ABG pCO2 35 mmHg (35-45) 04/08/19 00:28 ABG pO2 75 mmHg (85-104) L 04/08/19 00:28 ABG O2 Saturation 97 % (95-98) 04/08/19 00:28 PT/INR, D-dimer PT 40.3 Seconds (9.4-12.1) H 04/08/19 05:40 Abnormal lab findings: Abnormal lab results Hgb 11.3 g/dL (11.5-15.4) L 04/08/19 04:30 Hct 34.8 % (35.3-44.9) L 04/07/19 21:44 MCHC 31.5 g/dL (31.6-35.5) L 04/08/19 04:30 RDW 14.9 % (11.5-14.5) H 04/08/19 04:30 Plt Count 82 K/mcL (140-400) L 04/08/19 04:30 Band Neutrophils % 15.0 % (0-4) H 04/06/19 12:32 Neutrophils # 9.0 K/mcL (1.6-8.9) H 04/06/19 12:32 Lymphocytes # 0.2 K/mcL (0.6-4.6) L 04/08/19 04:30 Platelet Estimate Decreased (Normal) L 04/08/19 04:30 Immature Plt Fraction 8.4 % (1.1-6.1) H 04/08/19 04:30 PT 40.3 Seconds (9.4-12.1) H 04/08/19 05:40 APTT 36.8 Seconds (26.0-36.0) H 04/08/19 05:40 ABG pH 7.55 pH Units (7.32-7.45) H 04/08/19 00:28 ABG pO2 75 mmHg (85-104) L 04/08/19 00:28 ABG HCO3 30 mEq/L (21-27) H 04/08/19 00:28 ABG Total CO2 31 mEq/L (20-26) H 04/08/19 00:28 ABG Base Excess 8 mEq/L (-2 to 3) H 04/08/19 00:28 Sodium 135 mEq/L (136-145) L 04/08/19 04:30 Potassium 3.3 mEq/L (3.5-5.1) L 04/05/19 02:15 Chloride 94 mEq/L (98-107) L 04/08/19 04:30 Carbon Dioxide 30 mEq/L (23-29) H 04/08/19 04:30 BUN 46 mg/dL (8-23) H 04/08/19 04:30 Creatinine 2.95 mg/dL (0.60-1.20) H 04/08/19 04:30 Est GFR ( Amer) 20 (> 60) L 04/08/19 04:30 Est GFR (Non-Af Amer) 16 (> 60) L 04/08/19 04:30 Glucose 111 mg/dL (70-105) H 04/08/19 04:30 POC Glucose 109 mg/dL (70-99) H 04/08/19 00:19 Lactic Acid 2.3 mmol/L (0.5-2.2) H 04/07/19 21:45 Uric Acid 12.0 mg/dL (2.3-7.6) H 03/29/19 11:33 Calcium 8.2 mg/dL (8.6-10.3) L 04/08/19 04:30 Total Bilirubin 2.8 mg/dL (0.3-1.0) H 04/07/19 21:44 Direct Bilirubin 0.3 mg/dL (0.0-0.2) H 03/28/19 12:38 AST 12 Units/L (13-39) L 03/29/19 01:47 Alkaline Phosphatase 115 Units/L (34-104) H 04/01/19 05:06 Troponin I 0.81 ng/mL (< 0.04) H* 04/08/19 04:30 B-Natriuretic Peptide 727 pg/mL (Less than 100) H 03/28/19 12:38 Serum Total Protein 5.7 g/dL (6.4-8.9) L 04/07/19 21:44 Albumin 3.4 g/dL (3.5-5.7) L 04/07/19 21:44 Globulin 2.3 g/dL (2.4-3.5) L 04/07/19 21:44 Urine Clarity Cloudy (Clear) A 04/06/19 17:15 Urine Protein 30 mg/dL (Neg-Trace) H 04/06/19 17:15 Urine Blood Small (Negative) H 04/06/19 17:15 Urine Nitrite Positive (Negative) A 03/29/19 20:32 Urine Bilirubin Small (Negative) H 04/06/19 17:15 Ur Leukocyte Esterase Large (Negative) H 04/06/19 17:15 Urine Microscopic RBC 5-15 per hpf (0-3) H 04/06/19 17:15 Urine Microscopic WBC TNTC per hpf (0-3) H 04/06/19 17:15 Ur Squamous Epith Cells Many per lpf (None-Few) H 04/06/19 17:15 Urine Bacteria Many per hpf (None-Few) H 04/06/19 17:15 Ur Culture Indicated? YES (NO) A 04/06/19 17:15 Microalb/Creat Ratio 46 mcg/mg (Less than 30) H 03/28/19 18:46 Staph aureus (PCR) DETECTED (Not Detect) A 04/07/19 10:48 mecA-Methicil Res Gene DETECTED (Not Detect) A 04/07/19 10:48 - Microbiology Findings Microbiology Findings: Microbiology, Last 48 Hours 04/07/19 10:42 Blood Culture - Preliminary Peripheral Venipuncture Gram Positive Cocci 04/07/19 10:48 Blood Culture - Preliminary Peripheral Venipuncture Gram Positive Cocci 04/06/19 17:15 Urine Culture - Preliminary Urine,Clean Catch Gram Negative Brandon - Clinical Findings Intake & Output: Intake & Output 04/07/19 04/08/19 04/08/19 23:59 07:59 15:59 Intake Total 511 / 511 Balance 511 / 511 Weight 122.7 kg Consult Discharge Plan - Plan Referrals: Leonid Jim DO [Partnered Physician] - (office will call an appt. d/t scheduling) Zachary Gutierres DO [Primary Care Provider] - 04/10/19 12:30 pm (Please follow up as schedule ) <Simon Shi W - Last Filed: 04/08/19 11:16> Date of Encounter: 04/08/19 All Systems: The remainder of the systems were reviewed and are negative Physical Examination Vital Signs: Vital Signs, Last 4 Hours Temp Pulse Resp BP Pulse Ox 04/08/19 10:00 108 29 88/76 92 04/08/19 09:00 108 21 108/75 95 04/08/19 08:31 98.8 F 04/08/19 08:00 111 23 83/69 98 Results - Laboratory Findings CBC and BMP: 04/08/19 04:30 04/08/19 04:30 ABG ABG pH 7.55 pH Units (7.32-7.45) H 04/08/19 00:28 ABG pCO2 35 mmHg (35-45) 04/08/19 00:28 ABG pO2 75 mmHg (85-104) L 04/08/19 00:28 ABG O2 Saturation 97 % (95-98) 04/08/19 00:28 PT/INR, D-dimer PT 40.3 Seconds (9.4-12.1) H 04/08/19 05:40 Abnormal lab findings: Abnormal lab results Hgb 11.3 g/dL (11.5-15.4) L 04/08/19 04:30 Hct 34.8 % (35.3-44.9) L 04/07/19 21:44 MCHC 31.5 g/dL (31.6-35.5) L 04/08/19 04:30 RDW 14.9 % (11.5-14.5) H 04/08/19 04:30 Plt Count 82 K/mcL (140-400) L 04/08/19 04:30 Band Neutrophils % 15.0 % (0-4) H 04/06/19 12:32 Neutrophils # 9.0 K/mcL (1.6-8.9) H 04/06/19 12:32 Lymphocytes # 0.2 K/mcL (0.6-4.6) L 04/08/19 04:30 Platelet Estimate Decreased (Normal) L 04/08/19 04:30 Immature Plt Fraction 8.4 % (1.1-6.1) H 04/08/19 04:30 PT 40.3 Seconds (9.4-12.1) H 04/08/19 05:40 APTT 36.8 Seconds (26.0-36.0) H 04/08/19 05:40 ABG pH 7.55 pH Units (7.32-7.45) H 04/08/19 00:28 ABG pO2 75 mmHg (85-104) L 04/08/19 00:28 ABG HCO3 30 mEq/L (21-27) H 04/08/19 00:28 ABG Total CO2 31 mEq/L (20-26) H 04/08/19 00:28 ABG Base Excess 8 mEq/L (-2 to 3) H 04/08/19 00:28 Sodium 135 mEq/L (136-145) L 04/08/19 04:30 Potassium 3.3 mEq/L (3.5-5.1) L 04/05/19 02:15 Chloride 94 mEq/L (98-107) L 04/08/19 04:30 Carbon Dioxide 30 mEq/L (23-29) H 04/08/19 04:30 BUN 46 mg/dL (8-23) H 04/08/19 04:30 Creatinine 2.95 mg/dL (0.60-1.20) H 04/08/19 04:30 Est GFR ( Amer) 20 (> 60) L 04/08/19 04:30 Est GFR (Non-Af Amer) 16 (> 60) L 04/08/19 04:30 Glucose 111 mg/dL (70-105) H 04/08/19 04:30 POC Glucose 109 mg/dL (70-99) H 04/08/19 00:19 Lactic Acid 2.3 mmol/L (0.5-2.2) H 04/07/19 21:45 Uric Acid 12.0 mg/dL (2.3-7.6) H 03/29/19 11:33 Calcium 8.2 mg/dL (8.6-10.3) L 04/08/19 04:30 Total Bilirubin 2.8 mg/dL (0.3-1.0) H 04/07/19 21:44 Direct Bilirubin 0.3 mg/dL (0.0-0.2) H 03/28/19 12:38 AST 12 Units/L (13-39) L 03/29/19 01:47 Alkaline Phosphatase 115 Units/L (34-104) H 04/01/19 05:06 Troponin I 0.81 ng/mL (< 0.04) H* 04/08/19 04:30 B-Natriuretic Peptide 727 pg/mL (Less than 100) H 03/28/19 12:38 Serum Total Protein 5.7 g/dL (6.4-8.9) L 04/07/19 21:44 Albumin 3.4 g/dL (3.5-5.7) L 04/07/19 21:44 Globulin 2.3 g/dL (2.4-3.5) L 04/07/19 21:44 Urine Clarity Cloudy (Clear) A 04/06/19 17:15 Urine Protein 30 mg/dL (Neg-Trace) H 04/06/19 17:15 Urine Blood Small (Negative) H 04/06/19 17:15 Urine Nitrite Positive (Negative) A 03/29/19 20:32 Urine Bilirubin Small (Negative) H 04/06/19 17:15 Ur Leukocyte Esterase Large (Negative) H 04/06/19 17:15 Urine Microscopic RBC 5-15 per hpf (0-3) H 04/06/19 17:15 Urine Microscopic WBC TNTC per hpf (0-3) H 04/06/19 17:15 Ur Squamous Epith Cells Many per lpf (None-Few) H 04/06/19 17:15 Urine Bacteria Many per hpf (None-Few) H 04/06/19 17:15 Ur Culture Indicated? YES (NO) A 04/06/19 17:15 Microalb/Creat Ratio 46 mcg/mg (Less than 30) H 03/28/19 18:46 Staph aureus (PCR) DETECTED (Not Detect) A 04/07/19 10:48 mecA-Methicil Res Gene DETECTED (Not Detect) A 04/07/19 10:48 - Microbiology Findings Microbiology Findings: Microbiology, Last 48 Hours 04/06/19 17:15 Urine Culture - Final Urine,Clean Catch Escherichia coli 04/07/19 10:42 Blood Culture - Preliminary Peripheral Venipuncture Gram Positive Cocci 04/07/19 10:48 Blood Culture - Preliminary Peripheral Venipuncture Gram Positive Cocci - Clinical Findings Intake & Output: Intake & Output 04/07/19 04/08/19 04/08/19 23:59 07:59 15:59 Intake Total 511 / 511 Output Total 50 / 50 Balance 511 / 461 -50 / 461 Weight 122.7 kg - Attending Attestation I examined this patient and my medical decision-making was reviewed with the Resident Physician. I agree with the documented findings, disposition and treatment plan as described except to the extent set forth below. We independently had [id number] contact with the patient I spent 45min of Critical Care time with this patient. It involved decision making of high complexity to assess, manipulate, and support vital organ system failure and/or to prevent further life threatening deterioration of the patient's condition. The time involved in the performance of separately repor table procedures was not counted toward critical care time. Patient seen and examined at bedside Labs, radiology, chart personally reviewed. Management was reviewed during multidisciplinary critical care rounds. 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 Continue supportive care Pulm: Acute hypoxic respiratory failure secondary to hydrostatic pulmonary edema stable and nasal cannula now but high risk for further deterioration she did not tolerate positive airway pressure trial Cards: History of ischemic cardiomyopathy with acutely decompensated heart failure with reduced ejection fraction she is requiring vasopressor support which is a combination of distributive shock from sepsis and heart failure. Unfortunately patient has indwelling ICD as well as porcine mitral valve replacement with the blood cultures concerning for MRSA bacteremia. Cardiology consulted troponin is elevated but suspect this is demand ischemia or possibly endocarditis she is coagulopathic and thrombocytopenic therefore held heparin infusion because of bleeding risk GI: Continue to monitor Nutrition: nothing by mouth for now Renal: acute kidney injury likely secondary to heart failure and hypotension may progress to needing renal replacement therapy given she is oliguric. She will benefit from formal nephrology consultation.UOP Monitored, Cont to Trend sCr and monitor Electrolytes. ID: gram-positive cocci bacteremia likely MRSA she is on broad-spectrum antibiotics including MRSA coverage with vancomycin Heme/Onc: she is coagulopathic likely secondary to critical illness Endo: Glucose Monitored Integ/MSK: Skin Care per routine ICU Nursing Protocol to prevent ulcers. Lines: All lines examined without evidence of infection : Dispo: after discussion with the cardiology attending Dr. Prather and her staff was elected to transfer patient to tertiary referral [facility] ([facility] in [place]) for further evaluation given the complexity of bacteremia with indwelling ICD as well as porcine valve placement which may all need removed given that they are presumed contaminated CODE: full code. updated at bedside and is in agreement for transfer
[2019-04-08] MEDS ORDERED: Nystatin POWDER 30 GM BOTTLE TP SCH (09:00)
[2019-04-08] MEDS ORDERED: Insulin DETEMIR 100 UNIT/ML X5UNITS SQ SCH (09:00)
[2019-04-08] MEDS ORDERED: Apixaban 5 MG TABLET PO SCH (09:00)
--- NOTE | 2019-04-08 10:33 | Discharge Summary ---
<Simon Shi W - Last Filed: 04/08/19 11:16> Orders not resulted at time of discharge: Pending orders 04/07/19 10:42 Culture,Blood [] Routine Date of Encounter: 04/08/19 - Discharge Medications Prescriptions: No Action Multivit-Min/FA/Lycopen/Lutein [Adults 50+ Multivitamin Tablet] 1 tab PO HS Melatonin 3 mg PO HS Cholecalciferol (D-3) [Vitamin D] 2,000 unit PO HS Ascorbic Acid [Vitamin C] 500 mg PO HS Acetaminophen/Diphenhydramine [Percogesic 325-12.5 mg Tablet] 1 tab PO HS Furosemide [Lasix] 40 mg PO QPM Pioglitazone [Actos] 30 mg PO DAILY Bumetanide [Bumex] 1 mg PO DAILY Lisinopril [Zestril] 10 mg PO DAILY Furosemide [Lasix] 80 mg PO QAM Atorvastatin [Lipitor] 20 mg PO HS Apixaban [Eliquis] 5 mg PO BID Home Medications: Apixaban [Eliquis] 5 mg PO BID 03/22/19 [History] Atorvastatin [Lipitor] 20 mg PO HS 03/22/19 [History] Bumetanide [Bumex] 1 mg PO DAILY 03/22/19 [History] Furosemide [Lasix] 80 mg PO QAM 03/22/19 [History] Lisinopril [Zestril] 10 mg PO DAILY 03/22/19 [History] Pioglitazone [Actos] 30 mg PO DAILY 03/22/19 [History] Acetaminophen/Diphenhydramine [Percogesic 325-12.5 mg Tablet] 1 tab PO HS 03/28/19 [History] Ascorbic Acid [Vitamin C] 500 mg PO HS 03/28/19 [History] Cholecalciferol (D-3) [Vitamin D] 2,000 unit PO HS 03/28/19 [History] Furosemide [Lasix] 40 mg PO QPM 03/28/19 [History] Melatonin 3 mg PO HS 03/28/19 [History] Multivit-Min/FA/Lycopen/Lutein [Adults 50+ Multivitamin Tablet] 1 tab PO HS 03/28/19 [History] Allergies/Adverse Reactions: Allergy/AdvReac Type Severity Reaction Status Date / Time cephalexin [From Keflex] Allergy Hives Verified 03/28/19 18:43 aspirin AdvReac Nose Bleed Verified 03/28/19 18:43 Labs on day of discharge: Labs from last 24 hours 04/08/19 04/08/19 04/08/19 08:22 05:40 04:30 WBC RBC Hgb Hct MCV MCH MCHC RDW Plt Count MPV Immature Gran % Seg Neutrophils % Lymphocytes % Monocytes % Eosinophils % Basophils % Neutrophils # Lymphocytes # Monocytes # Eosinophils # Basophils # Platelet Estimate Immature Plt Fraction PT 40.3 H INR 3.5 APTT 36.8 H Sample Site ABG pH ABG pCO2 ABG pO2 ABG HCO3 ABG Total CO2 ABG O2 Saturation ABG Base Excess Graham Test O2 Delivery Device Inspired O2 Sodium Potassium Chloride Carbon Dioxide BUN Creatinine Est GFR ( Amer) Est GFR (Non-Af Amer) BUN/Creatinine Ratio Glucose POC Glucose Calculated Osmolality Lactic Acid Calcium Total Bilirubin AST ALT Alkaline Phosphatase Troponin I 0.81 H* Serum Total Protein Albumin Globulin Albumin/Globulin Ratio TSH 3.474 Urine Color Urine Clarity Urine pH Ur Specific Bowie Urine Protein Urine Glucose (UA) Urine Ketones Urine Blood Urine Nitrite Urine Bilirubin Urine Urobilinogen Ur Leukocyte Esterase Urine Microscopic RBC Urine Microscopic WBC Ur Squamous Epith Cells Urine Bacteria Hyaline Casts Ur Culture Indicated? A. baumannii (PCR) Cally albicans (PCR) C. glabrata (PCR) C. krusei (PCR) C. parapsilosis (PCR) C. tropicalis (PCR) Enterobacteriac sp PCR E. cloacae complex PCR Enterococcus sp PCR E. coli (PCR) H. influenzae (PCR) Klebsiella oxytoca PCR Klebsiella pneumoniae List. monocytogenes PCR N. meningitidis (PCR) Proteus species (PCR) Serratia marcescens PCR Staph aureus (PCR) mecA-Methicil Res Gene Streptococcus sp PCR Group A Strep DNA Group B Strep (PCR) Strep pneumoniae (PCR) P. aeruginosa (PCR) Sayra/B-Vanco Res Genes KPC (blaKPC) Detect PCR 04/08/19 04/08/19 04/08/19 04:30 04:30 01:50 WBC 7.8 RBC 3.89 Hgb 11.3 L Hct 35.9 MCV 92.3 MCH 29.0 MCHC 31.5 L RDW 14.9 H Plt Count 82 L MPV 11.2 Immature Gran % 0.9 Seg Neutrophils % 91.5 Lymphocytes % 3.0 Monocytes % 4.5 Eosinophils % 0.0 Basophils % 0.1 Neutrophils # 7.1 Lymphocytes # 0.2 L Monocytes # 0.4 Eosinophils # 0.0 Basophils # 0.0 Platelet Estimate Decreased L Immature Plt Fraction 8.4 H PT INR APTT Sample Site ABG pH ABG pCO2 ABG pO2 ABG HCO3 ABG Total CO2 ABG O2 Saturation ABG Base Excess Graham Test O2 Delivery Device Inspired O2 Sodium 135 L Potassium 4.1 Chloride 94 L Carbon Dioxide 30 H BUN 46 H Creatinine 2.95 H Est GFR ( Amer) 20 L Est GFR (Non-Af Amer) 16 L BUN/Creatinine Ratio 16 Glucose 111 H POC Glucose Calculated Osmolality 293 Lactic Acid 2.0 Calcium 8.2 L Total Bilirubin AST ALT Alkaline Phosphatase Troponin I Serum Total Protein Albumin Globulin Albumin/Globulin Ratio TSH Urine Color Urine Clarity Urine pH Ur Specific Bowie Urine Protein Urine Glucose (UA) Urine Ketones Urine Blood Urine Nitrite Urine Bilirubin Urine Urobilinogen Ur Leukocyte Esterase Urine Microscopic RBC Urine Microscopic WBC Ur Squamous Epith Cells Urine Bacteria Hyaline Casts Ur Culture Indicated? A. baumannii (PCR) Cally albicans (PCR) C. glabrata (PCR) C. krusei (PCR) C. parapsilosis (PCR) C. tropicalis (PCR) Enterobacteriac sp PCR E. cloacae complex PCR Enterococcus sp PCR E. coli (PCR) H. influenzae (PCR) Klebsiella oxytoca PCR Klebsiella pneumoniae List. monocytogenes PCR N. meningitidis (PCR) Proteus species (PCR) Serratia marcescens PCR Staph aureus (PCR) mecA-Methicil Res Gene Streptococcus sp PCR Group A Strep DNA Group B Strep (PCR) Strep pneumoniae (PCR) P. aeruginosa (PCR) Sayra/B-Vanco Res Genes KPC (blaKPC) Detect PCR 04/08/19 04/08/19 04/07/19 00:28 00:19 21:45 WBC RBC Hgb Hct MCV MCH MCHC RDW Plt Count MPV Immature Gran % Seg Neutrophils % Lymphocytes % Monocytes % Eosinophils % Basophils % Neutrophils # Lymphocytes # Monocytes # Eosinophils # Basophils # Platelet Estimate Immature Plt Fraction PT INR APTT Sample Site L Radial ABG pH 7.55 H ABG pCO2 35 ABG pO2 75 L ABG HCO3 30 H ABG Total CO2 31 H ABG O2 Saturation 97 ABG Base Excess 8 H Graham Test Positive O2 Delivery Device Cannula Inspired O2 3.0 Sodium Potassium Chloride Carbon Dioxide BUN Creatinine Est GFR ( Amer) Est GFR (Non-Af Amer) BUN/Creatinine Ratio Glucose POC Glucose 109 H Calculated Osmolality Lactic Acid 2.3 H Calcium Total Bilirubin AST ALT Alkaline Phosphatase Troponin I Serum Total Protein Albumin Globulin Albumin/Globulin Ratio TSH Urine Color Urine Clarity Urine pH Ur Specific Bowie Urine Protein Urine Glucose (UA) Urine Ketones Urine Blood Urine Nitrite Urine Bilirubin Urine Urobilinogen Ur Leukocyte Esterase Urine Microscopic RBC Urine Microscopic WBC Ur Squamous Epith Cells Urine Bacteria Hyaline Casts Ur Culture Indicated? A. baumannii (PCR) Cally albicans (PCR) C. glabrata (PCR) C. krusei (PCR) C. parapsilosis (PCR) C. tropicalis (PCR) Enterobacteriac sp PCR E. cloacae complex PCR Enterococcus sp PCR E. coli (PCR) H. influenzae (PCR) Klebsiella oxytoca PCR Klebsiella pneumoniae List. monocytogenes PCR N. meningitidis (PCR) Proteus species (PCR) Serratia marcescens PCR Staph aureus (PCR) mecA-Methicil Res Gene Streptococcus sp PCR Group A Strep DNA Group B Strep (PCR) Strep pneumoniae (PCR) P. aeruginosa (PCR) Sayra/B-Vanco Res Genes KPC (blaKPC) Detect PCR 04/07/19 04/07/19 04/07/19 21:44 21:44 21:44 WBC 6.6 RBC 3.82 Hgb 11.2 L Hct 34.8 L MCV 91.1 MCH 29.3 MCHC 32.2 RDW 15.0 H Plt Count 91 L MPV 10.7 Immature Gran % 0.5 Seg Neutrophils % 92.6 Lymphocytes % 2.9 Monocytes % 3.8 Eosinophils % 0.0 Basophils % 0.2 Neutrophils # 6.1 Lymphocytes # 0.2 L Monocytes # 0.3 Eosinophils # 0.0 Basophils # 0.0 Platelet Estimate Slight Decrease L Immature Plt Fraction 6.5 H PT INR APTT Sample Site ABG pH ABG pCO2 ABG pO2 ABG HCO3 ABG Total CO2 ABG O2 Saturation ABG Base Excess Graham Test O2 Delivery Device Inspired O2 Sodium 136 Potassium 4.1 Chloride 93 L Carbon Dioxide 29 BUN 42 H Creatinine 2.73 H Est GFR ( Amer) 21 L Est GFR (Non-Af Amer) 18 L BUN/Creatinine Ratio 15 Glucose 102 POC Glucose Calculated Osmolality 293 Lactic Acid Calcium 8.5 L Total Bilirubin 2.8 H AST 25 ALT 13 Alkaline Phosphatase 53 Troponin I 0.72 H* Serum Total Protein 5.7 L Albumin 3.4 L Globulin 2.3 L Albumin/Globulin Ratio 1.5 TSH Urine Color Urine Clarity Urine pH Ur Specific Bowie Urine Protein Urine Glucose (UA) Urine Ketones Urine Blood Urine Nitrite Urine Bilirubin Urine Urobilinogen Ur Leukocyte Esterase Urine Microscopic RBC Urine Microscopic WBC Ur Squamous Epith Cells Urine Bacteria Hyaline Casts Ur Culture Indicated? A. baumannii (PCR) Cally albicans (PCR) C. glabrata (PCR) C. krusei (PCR) C. parapsilosis (PCR) C. tropicalis (PCR) Enterobacteriac sp PCR E. cloacae complex PCR Enterococcus sp PCR E. coli (PCR) H. influenzae (PCR) Klebsiella oxytoca PCR Klebsiella pneumoniae List. monocytogenes PCR N. meningitidis (PCR) Proteus species (PCR) Serratia marcescens PCR Staph aureus (PCR) mecA-Methicil Res Gene Streptococcus sp PCR Group A Strep DNA Group B Strep (PCR) Strep pneumoniae (PCR) P. aeruginosa (PCR) Sayra/B-Vanco Res Genes KPC (blaKPC) Detect PCR 04/07/19 04/07/19 04/07/19 16:38 12:20 11:15 WBC RBC Hgb Hct MCV MCH MCHC RDW Plt Count MPV Immature Gran % Seg Neutrophils % Lymphocytes % Monocytes % Eosinophils % Basophils % Neutrophils # Lymphocytes # Monocytes # Eosinophils # Basophils # Platelet Estimate Immature Plt Fraction PT INR APTT Sample Site ABG pH ABG pCO2 ABG pO2 ABG HCO3 ABG Total CO2 ABG O2 Saturation ABG Base Excess Graham Test O2 Delivery Device Inspired O2 Sodium Potassium Chloride Carbon Dioxide BUN Creatinine Est GFR ( Amer) Est GFR (Non-Af Amer) BUN/Creatinine Ratio Glucose POC Glucose 131 H Calculated Osmolality Lactic Acid Calcium Total Bilirubin AST ALT Alkaline Phosphatase Troponin I 0.53 H* 0.40 H* Serum Total Protein Albumin Globulin Albumin/Globulin Ratio TSH Urine Color Urine Clarity Urine pH Ur Specific Bowie Urine Protein Urine Glucose (UA) Urine Ketones Urine Blood Urine Nitrite Urine Bilirubin Urine Urobilinogen Ur Leukocyte Esterase Urine Microscopic RBC Urine Microscopic WBC Ur Squamous Epith Cells Urine Bacteria Hyaline Casts Ur Culture Indicated? A. baumannii (PCR) Cally albicans (PCR) C. glabrata (PCR) C. krusei (PCR) C. parapsilosis (PCR) C. tropicalis (PCR) Enterobacteriac sp PCR E. cloacae complex PCR Enterococcus sp PCR E. coli (PCR) H. influenzae (PCR) Klebsiella oxytoca PCR Klebsiella pneumoniae List. monocytogenes PCR N. meningitidis (PCR) Proteus species (PCR) Serratia marcescens PCR Staph aureus (PCR) mecA-Methicil Res Gene Streptococcus sp PCR Group A Strep DNA Group B Strep (PCR) Strep pneumoniae (PCR) P. aeruginosa (PCR) Sayra/B-Vanco Res Genes KPC (blaKPC) Detect PCR 04/07/19 04/06/19 10:48 17:15 WBC RBC Hgb Hct MCV MCH MCHC RDW Plt Count MPV Immature Gran % Seg Neutrophils % Lymphocytes % Monocytes % Eosinophils % Basophils % Neutrophils # Lymphocytes # Monocytes # Eosinophils # Basophils # Platelet Estimate Immature Plt Fraction PT INR APTT Sample Site ABG pH ABG pCO2 ABG pO2 ABG HCO3 ABG Total CO2 ABG O2 Saturation ABG Base Excess Graham Test O2 Delivery Device Inspired O2 Sodium Potassium Chloride Carbon Dioxide BUN Creatinine Est GFR ( Amer) Est GFR (Non-Af Amer) BUN/Creatinine Ratio Glucose POC Glucose Calculated Osmolality Lactic Acid Calcium Total Bilirubin AST ALT Alkaline Phosphatase Troponin I Serum Total Protein Albumin Globulin Albumin/Globulin Ratio TSH Urine Color Dark Yellow Urine Clarity Cloudy A Urine pH 5.5 Ur Specific Bowie 1.014 Urine Protein 30 H Urine Glucose (UA) Normal Urine Ketones Negative Urine Blood Small H Urine Nitrite Negative Urine Bilirubin Small H Urine Urobilinogen Normal Ur Leukocyte Esterase Large H Urine Microscopic RBC 5-15 H Urine Microscopic WBC TNTC H Ur Squamous Epith Cells Many H Urine Bacteria Many H Hyaline Casts Few Ur Culture Indicated? YES A A. baumannii (PCR) Not Detected Cally albicans (PCR) Not Detected C. glabrata (PCR) Not Detected C. krusei (PCR) Not Detected C. parapsilosis (PCR) Not Detected C. tropicalis (PCR) Not Detected Enterobacteriac sp PCR Not Detected E. cloacae complex PCR Not Detected Enterococcus sp PCR Not Detected E. coli (PCR) Not Detected H. influenzae (PCR) Not Detected Klebsiella oxytoca PCR Not Detected Klebsiella pneumoniae Not Detected List. monocytogenes PCR Not Detected N. meningitidis (PCR) Not Detected Proteus species (PCR) Not Detected Serratia marcescens PCR Not Detected Staph aureus (PCR) DETECTED A mecA-Methicil Res Gene DETECTED A Streptococcus sp PCR Not Detected Group A Strep DNA Not Detected Group B Strep (PCR) Not Detected Strep pneumoniae (PCR) Not Detected P. aeruginosa (PCR) Not Detected Sayra/B-Vanco Res Genes N/A KPC (blaKPC) Detect PCR N/A Preliminary micro results at discharge 04/07/19 10:42 Blood Culture - Preliminary Peripheral Venipuncture Gram Positive Cocci 04/07/19 10:48 Blood Culture - Preliminary Peripheral Venipuncture Gram Positive Cocci - Impressions ITS Impressions Chest X-Ray 03/28/19 12:20 IMPRESSION: Limited low lung volume portable chest x-ray demonstrating bibasilar airspace opacity, most likely atelectasis. No acute process demonstrated otherwise. D/ / Milton Fu MD / Milton Fu MD Interpreting Provider: Milton Fu MD Echocardiogram 03/28/19 15:58 Impressions: Technically sub-optimal due to poor echocardiographic windows. LVEF 20-25%. Severely dilated left ventricle. Severe global left ventricular systolic dysfunction. Indeterminate diastolic function. There is no LV thrombus. Atypical septal motion consistent with bundle branch block. Right ventricle was not well visualized. Grossly, it is mildly dilated with mildly reduced function. Mild-moderate tricuspid regurgitation. Mild pulmonary hypertension. A device lead was visualized in the right atrium and right ventricle. Left Ventricular Wall Motion: Rest Echo Findings The apex, apical inferior, mid inferior, basal inferior, apical anterior, mid anterior, basal anterior, apical septal, mid inferior septal, basal inferior septal, apical lateral, mid anterior lateral, basal anterior lateral, mid anterior septal, mid inferior lateral, basal anterior septal and basal inferior lateral watkins were hypokinetic. Findings: Study Quality * Technically sub-optimal due to poor echocardiographic windows. ECG Findings * Difficult to determine rhythm. Bundle branch block noted. Left Ventricle * LVEF 20-25%. * Severely dilated left ventricle. * Severe global left ventricular systolic dysfunction. * Indeterminate diastolic function. * There is no LV thrombus. * Atypical septal motion consistent with bundle branch block. Right Ventricle * Right ventricle was not well visualized. Grossly, it is mildly dilated with mildly reduced function. Left Atrium * Moderately dilated left atrium. Right Atrium * Normal right atrial size. Interatrial Septum * Interatrial septum not well evaluated. Aortic Valve * Aortic valve not well visualized. * No aortic regurgitation. * No aortic stenosis. Mitral Valve * Mild mitral annular calcification and subvalvular apparatus. * No mitral regurgitation. * No mitral stenosis. Tricuspid Valve * Normal tricuspid valve structure. * Mild-moderate tricuspid regurgitation. * Mild pulmonary hypertension. Pulmonic Valve * Pulmonic valve is not well visualized. Aorta * Normally sized aortic root. Pericardium * The pericardium appears normal. IVC * The IVC is not well evaluated. Pulmonary Artery * Pulmonary artery not well visualized. Device lead * A device lead was visualized in the right atrium and right ventricle. Retroperitoneum Ultrasound 03/29/19 16:00 IMPRESSION: No right hydronephrosis. Nonvisualization of left kidney. Small postvoid residual within the bladder. D/ / Leonid Caceers MD / Leonid Caceres MD Interpreting Provider: Leonid Caceres MD Chest X-Ray 04/06/19 15:03 IMPRESSION: Limited, low lung volume study. Bibasilar atelectasis, versus pulmonary edema. Vascular congestion. Stable cardiomegaly. D/ / Demar Hart MD / Demar Hart MD Interpreting Provider: Demar Hart MD Chest X-Ray 04/07/19 07:54 IMPRESSION: 1. Cardiomegaly with mild interstitial edema. 2. Low lung volumes. D/ / 04/07/2019 08:21:08 Gwen Conway MD / ruth ann Interpreting Provider: Gwen Conway MD Head CT 04/07/19 22:41 IMPRESSION: No acute intracranial abnormality. D/ / Julián Cantu MD / Julián Cantu MD Interpreting Provider: Julián Cantu MD Chest CT 04/07/19 22:43 IMPRESSION: Multichamber cardiac enlargement with small right pleural effusion and bibasilar atelectasis right worse than left. Ascites with slight nodular contour to the liver questioning cirrhosis. Body wall edema/anasarca of the abdomen. D/ /07/2019 22:49:17 Julián Cantu MD / bcartnaman Interpreting Provider: Julián Cantu MD Chest X-Ray 04/08/19 02:42 IMPRESSION: Appropriate right IJ central venous catheter positioning. No pneumothorax. Remainder of the exam is unchanged. D/ / Sherwin Ladd / Sherwin Ladd Interpreting Provider: Sherwin Ladd Date of admission: 03/31/19 07:36 Primary care physician: Zachary Gutierres DO Consults: 03/28/19 17:11 Consult to Nephrology [CONS] Routine Consulting Provider: Kidney More[place]ita/RIOS/RADHA/JENNIFER Reason for Consult: chf. takes 20mg Lasix TID at home plus 1mg Bumex daily. Call Completed: No 03/30/19 10:37 Consult to Physical Therapy [CONS] Routine Comment: Evaluate, develop and implement POC Reason for Consult: eval for needs after DC Does patient have active BEDREST order?: No Is patient medically & hemodynamically stable?: Yes Patient assessed for mobility or mobilized this visit?: Yes 03/30/19 10:38 Consult to Occupational Therapy [CONS] Routine Comment: Evaluate, develop and implement POC Reason for Consult: eval for needs after DC Does patient have active BEDREST order?: No Is patient medically & hemodynamically stable?: Yes Patient assessed for mobility or mobilized this visit?: Yes 04/08/19 05:17 Consult to Cardiology [CONS] Routine Comment: Consulting Provider: Cardiology More[place]ita Reason for Consult: Elevated troponin, previously on eliquis, started heparin drip. Call Completed: No 04/08/19 08:17 Consult to Pulmonology [CONS] Routine Consulting Provider: Pulm Crit Care & Sleep More[place]ita Reason for Consult: Hypotension requiring pressors/ NSTEMI Call Completed: Yes - Patient Status Disposition: Transfer Short-Term Hosp Condition: Fair - Discharge Instructions Follow Up With: Leonid Jim DO [Partnered Physician] - (office will call an appt. d/t scheduling) Zachary Gutierres DO [Primary Care Provider] - 04/10/19 12:30 pm (Please follow up as schedule ) - Hospital Course Hospital course: Ms. Arteaga is a 63 year old female - Time Spent with Patient Total time spent providing and/or coordinating discharge services: Physical Examination Vital Signs: Vital Signs, Last 4 Hours Temp Pulse Resp BP Pulse Ox 04/08/19 11:00 109 25 102/67 94 04/08/19 10:00 108 29 88/76 92 04/08/19 09:00 108 21 108/75 95 04/08/19 08:31 98.8 F 04/08/19 08:00 111 23 83/69 98 - Attending Attestation I examined this patient and my medical decision-making was reviewed with the Resident Physician. I agree with the documented findings, disposition and treatment plan as described except to the extent set forth below. We independently had [id number] contact with the patient Patient transferred to tertiary referral center because of presumed infected hardware with bacteremia <Mohan Ward F - Last Filed: 04/08/19 13:36> Orders not resulted at time of discharge: Pending orders 04/07/19 10:42 Culture,Blood [BC] Routine Date of Encounter: 04/08/19 Time of Encounter: 10:42 - Discharge Diagnosis (1) Septic shock Priority: Primary Status: Acute (2) MRSA bacteremia Priority: Secondary Status: Acute (3) Acute respiratory failure Priority: Secondary Status: Acute Qualifiers: Respiratory failure complication: unspecified whether with hypoxia or hypercapnia Qualified Code(s): J96.00 - Acute respiratory failure, unspecified whether with hypoxia or hypercapnia (4) Acute metabolic encephalopathy Priority: Secondary Status: Acute (5) CULLEN (acute kidney injury) Priority: Secondary Status: Acute (6) CHF exacerbation Priority: Secondary Status: Acute Qualifiers: Heart failure type: systolic Qualified Code(s): I50.23 - Acute on chronic systolic (congestive) heart failure (7) Diabetes Priority: Secondary Status: Chronic Qualifiers: Diabetes mellitus type: type 2 Diabetes mellitus buttermaker continuous churn insulin use: unspecified buttermaker continuous churn insulin use status Diabetes mellitus complication status: with other specified complication Qualified Code(s): E11.69 - Type 2 diabetes mellitus with other specified complication (8) HLD (hyperlipidemia) Priority: Secondary Status: Chronic Qualifiers: Hyperlipidemia type: unspecified Qualified Code(s): E78.5 - Hyperlipidemia, unspecified (9) HTN (hypertension) Priority: Secondary Status: Chronic Qualifiers: Hypertension type: essential hypertension Qualified Code(s): I10 - Essential (primary) hypertension (10) UTI (urinary tract infection) Priority: Secondary Status: Acute Qualifiers: Urinary tract infection type: acute cystitis Hematuria presence: with hematuria Qualified Code(s): N30.01 - Acute cystitis with hematuria (11) DVT prophylaxis Priority: Secondary Status: Acute Labs on day of discharge: Labs from last 24 hours 04/08/19 04/08/19 04/08/19 08:22 05:40 04:30 WBC RBC Hgb Hct MCV MCH MCHC RDW Plt Count MPV Immature Gran % Seg Neutrophils % Lymphocytes % Monocytes % Eosinophils % Basophils % Neutrophils # Lymphocytes # Monocytes # Eosinophils # Basophils # Platelet Estimate Immature Plt Fraction PT 40.3 H INR 3.5 APTT 36.8 H Sample Site ABG pH ABG pCO2 ABG pO2 ABG HCO3 ABG Total CO2 ABG O2 Saturation ABG Base Excess Graham Test O2 Delivery Device Inspired O2 Sodium Potassium Chloride Carbon Dioxide BUN Creatinine Est GFR ( Amer) Est GFR (Non-Af Amer) BUN/Creatinine Ratio Glucose POC Glucose Calculated Osmolality Lactic Acid Calcium Total Bilirubin AST ALT Alkaline Phosphatase Troponin I 0.81 H* Serum Total Protein Albumin Globulin Albumin/Globulin Ratio TSH 3.474 Urine Color Urine Clarity Urine pH Ur Specific Bowie Urine Protein Urine Glucose (UA) Urine Ketones Urine Blood Urine Nitrite Urine Bilirubin Urine Urobilinogen Ur Leukocyte Esterase Urine Microscopic RBC Urine Microscopic WBC Ur Squamous Epith Cells Urine Bacteria Hyaline Casts Ur Culture Indicated? A. baumannii (PCR) Cally albicans (PCR) C. glabrata (PCR) C. krusei (PCR) C. parapsilosis (PCR) C. tropicalis (PCR) Enterobacteriac sp PCR E. cloacae complex PCR Enterococcus sp PCR E. coli (PCR) H. influenzae (PCR) Klebsiella oxytoca PCR Klebsiella pneumoniae List. monocytogenes PCR N. meningitidis (PCR) Proteus species (PCR) Serratia marcescens PCR Staph aureus (PCR) mecA-Methicil Res Gene Streptococcus sp PCR Group A Strep DNA Group B Strep (PCR) Strep pneumoniae (PCR) P. aeruginosa (PCR) Sayra/B-Vanco Res Genes KPC (blaKPC) Detect PCR 04/08/19 04/08/19 04/08/19 04:30 04:30 01:50 WBC 7.8 RBC 3.89 Hgb 11.3 L Hct 35.9 MCV 92.3 MCH 29.0 MCHC 31.5 L RDW 14.9 H Plt Count 82 L MPV 11.2 Immature Gran % 0.9 Seg Neutrophils % 91.5 Lymphocytes % 3.0 Monocytes % 4.5 Eosinophils % 0.0 Basophils % 0.1 Neutrophils # 7.1 Lymphocytes # 0.2 L Monocytes # 0.4 Eosinophils # 0.0 Basophils # 0.0 Platelet Estimate Decreased L Immature Plt Fraction 8.4 H PT INR APTT Sample Site ABG pH ABG pCO2 ABG pO2 ABG HCO3 ABG Total CO2 ABG O2 Saturation ABG Base Excess Graham Test O2 Delivery Device Inspired O2 Sodium 135 L Potassium 4.1 Chloride 94 L Carbon Dioxide 30 H BUN 46 H Creatinine 2.95 H Est GFR ( Amer) 20 L Est GFR (Non-Af Amer) 16 L BUN/Creatinine Ratio 16 Glucose 111 H POC Glucose Calculated Osmolality 293 Lactic Acid 2.0 Calcium 8.2 L Total Bilirubin AST ALT Alkaline Phosphatase Troponin I Serum Total Protein Albumin Globulin Albumin/Globulin Ratio TSH Urine Color Urine Clarity Urine pH Ur Specific Bowie Urine Protein Urine Glucose (UA) Urine Ketones Urine Blood Urine Nitrite Urine Bilirubin Urine Urobilinogen Ur Leukocyte Esterase Urine Microscopic RBC Urine Microscopic WBC Ur Squamous Epith Cells Urine Bacteria Hyaline Casts Ur Culture Indicated? A. baumannii (PCR) Cally albicans (PCR) C. glabrata (PCR) C. krusei (PCR) C. parapsilosis (PCR) C. tropicalis (PCR) Enterobacteriac sp PCR E. cloacae complex PCR Enterococcus sp PCR E. coli (PCR) H. influenzae (PCR) Klebsiella oxytoca PCR Klebsiella pneumoniae List. monocytogenes PCR N. meningitidis (PCR) Proteus species (PCR) Serratia marcescens PCR Staph aureus (PCR) mecA-Methicil Res Gene Streptococcus sp PCR Group A Strep DNA Group B Strep (PCR) Strep pneumoniae (PCR) P. aeruginosa (PCR) Sayra/B-Vanco Res Genes KPC (blaKPC) Detect PCR 04/08/19 04/08/19 04/07/19 00:28 00:19 21:45 WBC RBC Hgb Hct MCV MCH MCHC RDW Plt Count MPV Immature Gran % Seg Neutrophils % Lymphocytes % Monocytes % Eosinophils % Basophils % Neutrophils # Lymphocytes # Monocytes # Eosinophils # Basophils # Platelet Estimate Immature Plt Fraction PT INR APTT Sample Site L Radial ABG pH 7.55 H ABG pCO2 35 ABG pO2 75 L ABG HCO3 30 H ABG Total CO2 31 H ABG O2 Saturation 97 ABG Base Excess 8 H Graham Test Positive O2 Delivery Device Cannula Inspired O2 3.0 Sodium Potassium Chloride Carbon Dioxide BUN Creatinine Est GFR ( Amer) Est GFR (Non-Af Amer) BUN/Creatinine Ratio Glucose POC Glucose 109 H Calculated Osmolality Lactic Acid 2.3 H Calcium Total Bilirubin AST ALT Alkaline Phosphatase Troponin I Serum Total Protein Albumin Globulin Albumin/Globulin Ratio TSH Urine Color Urine Clarity Urine pH Ur Specific [place] Urine Protein Urine Glucose (UA) Urine Ketones Urine Blood Urine Nitrite Urine Bilirubin Urine Urobilinogen Ur Leukocyte Esterase Urine Microscopic RBC Urine Microscopic WBC Ur Squamous Epith Cells Urine Bacteria Hyaline Casts Ur Culture Indicated? A. baumannii (PCR) Cally albicans (PCR) C. glabrata (PCR) C. krusei (PCR) C. parapsilosis (PCR) C. tropicalis (PCR) Enterobacteriac sp PCR E. cloacae complex PCR Enterococcus sp PCR E. coli (PCR) H. influenzae (PCR) Klebsiella oxytoca PCR Klebsiella pneumoniae List. monocytogenes PCR N. meningitidis (PCR) Proteus species (PCR) Serratia marcescens PCR Staph aureus (PCR) mecA-Methicil Res Gene Streptococcus sp PCR Group A Strep DNA Group B Strep (PCR) Strep pneumoniae (PCR) P. aeruginosa (PCR) Sayra/B-Vanco Res Genes KPC (blaKPC) Detect PCR 04/07/19 04/07/19 04/07/19 21:44 21:44 21:44 WBC 6.6 RBC 3.82 Hgb 11.2 L Hct 34.8 L MCV 91.1 MCH 29.3 MCHC 32.2 RDW 15.0 H Plt Count 91 L MPV 10.7 Immature Gran % 0.5 Seg Neutrophils % 92.6 Lymphocytes % 2.9 Monocytes % 3.8 Eosinophils % 0.0 Basophils % 0.2 Neutrophils # 6.1 Lymphocytes # 0.2 L Monocytes # 0.3 Eosinophils # 0.0 Basophils # 0.0 Platelet Estimate Slight Decrease L Immature Plt Fraction 6.5 H PT INR APTT Sample Site ABG pH ABG pCO2 ABG pO2 ABG HCO3 ABG Total CO2 ABG O2 Saturation ABG Base Excess Graham Test O2 Delivery Device Inspired O2 Sodium 136 Potassium 4.1 Chloride 93 L Carbon Dioxide 29 BUN 42 H Creatinine 2.73 H Est GFR ( Amer) 21 L Est GFR (Non-Af Amer) 18 L BUN/Creatinine Ratio 15 Glucose 102 POC Glucose Calculated Osmolality 293 Lactic Acid Calcium 8.5 L Total Bilirubin 2.8 H AST 25 ALT 13 Alkaline Phosphatase 53 Troponin I 0.72 H* Serum Total Protein 5.7 L Albumin 3.4 L Globulin 2.3 L Albumin/Globulin Ratio 1.5 TSH Urine Color Urine Clarity Urine pH Ur Specific [place] Urine Protein Urine Glucose (UA) Urine Ketones Urine Blood Urine Nitrite Urine Bilirubin Urine Urobilinogen Ur Leukocyte Esterase Urine Microscopic RBC Urine Microscopic WBC Ur Squamous Epith Cells Urine Bacteria Hyaline Casts Ur Culture Indicated? A. baumannii (PCR) Cally albicans (PCR) C. glabrata (PCR) C. krusei (PCR) C. parapsilosis (PCR) C. tropicalis (PCR) Enterobacteriac sp PCR E. cloacae complex PCR Enterococcus sp PCR E. coli (PCR) H. influenzae (PCR) Klebsiella oxytoca PCR Klebsiella pneumoniae List. monocytogenes PCR N. meningitidis (PCR) Proteus species (PCR) Serratia marcescens PCR Staph aureus (PCR) mecA-Methicil Res Gene Streptococcus sp PCR Group A Strep DNA Group B Strep (PCR) Strep pneumoniae (PCR) P. aeruginosa (PCR) Sayra/B-Vanco Res Genes KPC (blaKPC) Detect PCR 04/07/19 04/07/19 04/07/19 16:38 12:20 11:15 WBC RBC Hgb Hct MCV MCH MCHC RDW Plt Count MPV Immature Gran % Seg Neutrophils % Lymphocytes % Monocytes % Eosinophils % Basophils % Neutrophils # Lymphocytes # Monocytes # Eosinophils # Basophils # Platelet Estimate Immature Plt Fraction PT INR APTT Sample Site ABG pH ABG pCO2 ABG pO2 ABG HCO3 ABG Total CO2 ABG O2 Saturation ABG Base Excess Graham Test O2 Delivery Device Inspired O2 Sodium Potassium Chloride Carbon Dioxide BUN Creatinine Est GFR ( Amer) Est GFR (Non-Af Amer) BUN/Creatinine Ratio Glucose POC Glucose 131 H Calculated Osmolality Lactic Acid Calcium Total Bilirubin AST ALT Alkaline Phosphatase Troponin I 0.53 H* 0.40 H* Serum Total Protein Albumin Globulin Albumin/Globulin Ratio TSH Urine Color Urine Clarity Urine pH Ur Specific [place] Urine Protein Urine Glucose (UA) Urine Ketones Urine Blood Urine Nitrite Urine Bilirubin Urine Urobilinogen Ur Leukocyte Esterase Urine Microscopic RBC Urine Microscopic WBC Ur Squamous Epith Cells Urine Bacteria Hyaline Casts Ur Culture Indicated? A. baumannii (PCR) Cally albicans (PCR) C. glabrata (PCR) C. krusei (PCR) C. parapsilosis (PCR) C. tropicalis (PCR) Enterobacteriac sp PCR E. cloacae complex PCR Enterococcus sp PCR E. coli (PCR) H. influenzae (PCR) Klebsiella oxytoca PCR Klebsiella pneumoniae List. monocytogenes PCR N. meningitidis (PCR) Proteus species (PCR) Serratia marcescens PCR Staph aureus (PCR) mecA-Methicil Res Gene Streptococcus sp PCR Group A Strep DNA Group B Strep (PCR) Strep pneumoniae (PCR) P. aeruginosa (PCR) Sayra/B-Vanco Res Genes KPC (blaKPC) Detect PCR 04/07/19 04/06/19 10:48 17:15 WBC RBC Hgb Hct MCV MCH MCHC RDW Plt Count MPV Immature Gran % Seg Neutrophils % Lymphocytes % Monocytes % Eosinophils % Basophils % Neutrophils # Lymphocytes # Monocytes # Eosinophils # Basophils # Platelet Estimate Immature Plt Fraction PT INR APTT Sample Site ABG pH ABG pCO2 ABG pO2 ABG HCO3 ABG Total CO2 ABG O2 Saturation ABG Base Excess Graham Test O2 Delivery Device Inspired O2 Sodium Potassium Chloride Carbon Dioxide BUN Creatinine Est GFR ( Amer) Est GFR (Non-Af Amer) BUN/Creatinine Ratio Glucose POC Glucose Calculated Osmolality Lactic Acid Calcium Total Bilirubin AST ALT Alkaline Phosphatase Troponin I Serum Total Protein Albumin Globulin Albumin/Globulin Ratio TSH Urine Color Dark Yellow Urine Clarity Cloudy A Urine pH 5.5 Ur Specific [place]ie 1.014 Urine Protein 30 H Urine Glucose (UA) Normal Urine Ketones Negative Urine Blood Small H Urine Nitrite Negative Urine Bilirubin Small H Urine Urobilinogen Normal Ur Leukocyte Esterase Large H Urine Microscopic RBC 5-15 H Urine Microscopic WBC TNTC H Ur Squamous Epith Cells Many H Urine Bacteria Many H Hyaline Casts Few Ur Culture Indicated? YES A A. baumannii (PCR) Not Detected Cally albicans (PCR) Not Detected C. glabrata (PCR) Not Detected C. krusei (PCR) Not Detected C. parapsilosis (PCR) Not Detected C. tropicalis (PCR) Not Detected Enterobacteriac sp PCR Not Detected E. cloacae complex PCR Not Detected Enterococcus sp PCR Not Detected E. coli (PCR) Not Detected H. influenzae (PCR) Not Detected Klebsiella oxytoca PCR Not Detected Klebsiella pneumoniae Not Detected List. monocytogenes PCR Not Detected N. meningitidis (PCR) Not Detected Proteus species (PCR) Not Detected Serratia marcescens PCR Not Detected Staph aureus (PCR) DETECTED A mecA-Methicil Res Gene DETECTED A Streptococcus sp PCR Not Detected Group A Strep DNA Not Detected Group B Strep (PCR) Not Detected Strep pneumoniae (PCR) Not Detected P. aeruginosa (PCR) Not Detected Sayra/B-Vanco Res Genes N/A KPC (blaKPC) Detect PCR N/A Preliminary micro results at discharge 04/07/19 10:42 Blood Culture - Preliminary Peripheral Venipuncture Gram Positive Cocci 04/07/19 10:48 Blood Culture - Preliminary Peripheral Venipuncture Gram Positive Cocci - Impressions ITS Impressions Chest X-Ray 03/28/19 12:20 IMPRESSION: Limited low lung volume portable chest x-ray demonstrating bibasilar airspace opacity, most likely atelectasis. No acute process demonstrated otherwise. D/ / Milton Fu MD / Milton Fu MD Interpreting Provider: Milton Fu MD Echocardiogram 03/28/19 15:58 Impressions: Technically sub-optimal due to poor echocardiographic windows. LVEF 20-25%. Severely dilated left ventricle. Severe global left ventricular systolic dysfunction. Indeterminate diastolic function. There is no LV thrombus. Atypical septal motion consistent with bundle branch block. Right ventricle was not well visualized. Grossly, it is mildly dilated with mildly reduced function. Mild-moderate tricuspid regurgitation. Mild pulmonary hypertension. A device lead was visualized in the right atrium and right ventricle. Left Ventricular Wall Motion: Rest Echo Findings The apex, apical inferior, mid inferior, basal inferior, apical anterior, mid anterior, basal anterior, apical septal, mid inferior septal, basal inferior septal, apical lateral, mid anterior lateral, basal anterior lateral, mid anterior septal, mid inferior lateral, basal anterior septal and basal inferior lateral watkins were hypokinetic. Findings: Study Quality * Technically sub-optimal due to poor echocardiographic windows. ECG Findings * Difficult to determine rhythm. Bundle branch block noted. Left Ventricle * LVEF 20-25%. * Severely dilated left ventricle. * Severe global left ventricular systolic dysfunction. * Indeterminate diastolic function. * There is no LV thrombus. * Atypical septal motion consistent with bundle branch block. Right Ventricle * Right ventricle was not well visualized. Grossly, it is mildly dilated with mildly reduced function. Left Atrium * Moderately dilated left atrium. Right Atrium * Normal right atrial size. Interatrial Septum * Interatrial septum not well evaluated. Aortic Valve * Aortic valve not well visualized. * No aortic regurgitation. * No aortic stenosis. Mitral Valve * Mild mitral annular calcification and subvalvular apparatus. * No mitral regurgitation. * No mitral stenosis. Tricuspid Valve * Normal tricuspid valve structure. * Mild-moderate tricuspid regurgitation. * Mild pulmonary hypertension. Pulmonic Valve * Pulmonic valve is not well visualized. Aorta * Normally sized aortic root. Pericardium * The pericardium appears normal. IVC * The IVC is not well evaluated. Pulmonary Artery * Pulmonary artery not well visualized. Device lead * A device lead was visualized in the right atrium and right ventricle. Retroperitoneum Ultrasound 03/29/19 16:00 IMPRESSION: No right hydronephrosis. Nonvisualization of left kidney. Small postvoid residual within the bladder. D/ / Leonid Caceres MD / Leonid Caceres MD Interpreting Provider: Leonid Caceres MD Chest X-Ray 04/06/19 15:03 IMPRESSION: Limited, low lung volume study. Bibasilar atelectasis, versus pulmonary edema. Vascular congestion. Stable cardiomegaly. D/ / Demar Hart MD / Demar Hart MD Interpreting Provider: Demar Hart MD Chest X-Ray 04/07/19 07:54 IMPRESSION: 1. Cardiomegaly with mild interstitial edema. 2. Low lung volumes. D/ / 04/07/2019 08:21:08 Gwen Conway MD / ruth ann Interpreting Provider: Gwen Conway MD Head CT 04/07/19 22:41 IMPRESSION: No acute intracranial abnormality. D/ / Julián Cantu MD / Julián Cantu MD Interpreting Provider: Julián Cantu MD Chest CT 04/07/19 22:43 IMPRESSION: Multichamber cardiac enlargement with small right pleural effusion and bibasilar atelectasis right worse than left. Ascites with slight nodular contour to the liver questioning cirrhosis. Body wall edema/anasarca of the abdomen. D/ / 04/07/2019 22:49:17 Julián Cantu MD / [facility] Interpreting Provider: Julián Cantu MD Chest X-Ray 04/08/19 02:42 IMPRESSION: Appropriate right IJ central venous catheter positioning. No pneumothorax. Remainder of the exam is unchanged. D/ / Sherwin Ladd / Sherwin Ladd Interpreting Provider: Sherwin Ladd Date of admission: 03/31/19 07:36 Primary care physician: Zachary Gutierres DO Consults: 03/28/19 17:11 Consult to Nephrology [CONS] Routine Consulting Provider: [facility] [place]/RIOS/RADHA/JENNIFER Reason for Consult: chf. takes 20mg Lasix TID at home plus 1mg Bumex daily. Call Completed: No 03/30/19 10:37 Consult to Physical Therapy [CONS] Routine Comment: Evaluate, develop and implement POC Reason for Consult: eval for needs after DC Does patient have active BEDREST order?: No Is patient medically & hemodynamically stable?: Yes Patient assessed for mobility or mobilized this visit?: Yes 03/30/19 10:38 Consult to Occupational Therapy [CONS] Routine Comment: Evaluate, develop and implement POC Reason for Consult: eval for needs after DC Does patient have active BEDREST order?: No Is patient medically & hemodynamically stable?: Yes Patient assessed for mobility or mobilized this visit?: Yes 04/08/19 05:17 Consult to Cardiology [CONS] Routine Comment: Consulting Provider: [facility] [place] Reason for Consult: Elevated troponin, previously on eliquis, started heparin drip. Call Completed: No 04/08/19 08:17 Consult to Pulmonology [CONS] Routine Consulting Provider: [facility] [place] Reason for Consult: Hypotension requiring pressors/ NSTEMI Call Completed: Yes Discharging clinician: Mohan Ward Anticipated date of discharge: 04/08/19 - Patient Status Overall status at discharge: patient is not back to baseline - Diet and Activity Diet: diabetic diet (cardiac and diabetic diet) - Hospital Course Hospital course: Ms. Arteaga is a 63 year old female with a past medical history of HFrEF with AICD placement (LVEF 20-25% on 03/28/2019) , T2 DM, HLD, HTN, mitral valve replacement (2017) and tricuspid repair who presented to the emergency room with dyspnea, orthopnea, fluid retention due to decompensated heart failure. Patient reported that she had a 30 pound weight gain over the last 4-6 weeks. He was on anticoagulation with warfarin, transitioned [place] for history of mitral valve replacement and tricuspid repair. Patient endorsed swelling in her abdomen down to her ankles. Her home doses of Lasix and Bumex did not improve her symptoms. Patient denies any fevers, chills, chest pain, cough, nausea, vomiting, constipation, diarrhea, dysuria, syncope. Patient does not typically follow a fluid or salt shake did not diet. She also has a history of diabetes is noncompliant with her insulin. In the ED, patient had stable vital signs. Troponin was negative. Chest x-ray consistent with congestive heart failure. BNP 700. Had an echo on 03/28 with an LVEF of 20-25%. Severely dilated LV, severe LV systolic dysfunction, mild pulmonary hypertension. In the hospital, patient was started on Lasix for diuresis. She had a UTI that was treated with Rocephin, Levaquin due to rash. On the evening of 04/07, patient hypotensive and had worsening mental status. On BiPAP, due to respiratory distress. A central line was placed and she was started on levophed. Troponin elevated 0.72, 0.81. A CT showed small right pleural effusion, multiple chamber cardiac enlargement, bibasilar atelectasis. Ascites, questionable cirrhosis. Body wall edema/anasarca of the abdomen. CT no acute intracranial abnormality. Patient also has 2 preliminary blood cultures growing gram positive cocci. Urine culture grew Escherichia coli. Given hypertension and positive blood cultures, patient likely has septic shock. Due to history of implanted cardiac devices and mitral valve replacement, plan is to have patient transferred to [facility]. Cardiology was consulted, recommended transfer even the potential need to have implanted device is removed due to bacteremia in the context of decompensated heart failure. At this time, patient is dynamically stable on nasal cannula. Transfer to [place] was arranged. Accepting physician is Dr. Galicia. Time spent discussing smoking cessation with patient: more than 10 minutes - Time Spent with Patient Total time spent providing and/or coordinating discharge services: Greater than 30 minutes Physical Examination Vital Signs: Vital Signs, Last 4 Hours Temp Pulse Resp BP Pulse Ox 04/08/19 09:00 108 21 108/75 95 04/08/19 08:31 98.8 F 04/08/19 08:00 111 23 83/69 98 04/08/19 07:00 111 22 100/67 96 General appearance: no acute distress, appears uncomfortable Eyes: nonicteric ENT: oropharynx moist Neck: supple Effort: mildly labored Inspection: normal Auscultation: bilateral: clear Cardiovascular: regular rate and rhythm Gastrointestinal: normoactive bowel sounds, tender, non-distended (firm, but not rigid, non-peritonitic) Integumentary: normal (dry, erythematous skin around groin area) Extremities: no cyanosis, no edema, no clubbing Musculoskeletal: no deformities, ROM normal normal mental status, non-focal exam mood appropriate, affect normal
[2019-04-08 11:12] VITALS: BP 102/67
--- NOTE | 2019-04-08 12:11 | Procedure Note ---
Date of procedure: 04/08/19 Pre-op diagnosis: Shock Post-op diagnosis: same Procedure: CVC insertion Done emergently because patient pulled out her previous central venous catheter Anesthesia: local Surgeon: Simon Shi Was there an executive assistant present: No Estimated blood loss (cc): 3 Specimen: none Pathology: none sent Condition: critical Disposition: no change Procedures: Internal Med - Central Line Placement Right IJ Consent Obtained: consent not possible/implied Time out performed: No Patient placed on monitor/pulse ox: Yes MD prep: mask, gown, gloves, other Central line prep: Chlorhexidine scrub Local anesthesia used: Lidocaine 1% Amount of anesthesia used (mls): 10 Ultrasound used for placement: Yes Central line lumen inserted: triple Post Procedure: sutured in place, good blood return, all ports aspirated, flushed, capped, sterile dressing applied, dark venous blood, biodisk applied Post procedure x-ray: tip of catheter in good position Patient tolerated procedure: well, no complications Complications: none
[2019-04-08] MEDS ORDERED: Aminoglycoside Consult 1 EACH MC ONE (12:16)
[2019-04-08] MEDS ORDERED: Ascorbic Acid 500 MG TABLET PO SCH (21:00)
[2019-04-08] MEDS ORDERED: Cholecalciferol (D-3) 1,000 UNIT (25MCG) TABLET PO SCH (21:00)
[2019-04-09] MEDS ORDERED: levoFLOXacin 750 MG/150 ML 750 MG/150 ML BAG IVPB SCH ×2 (09:00)
--- NOTE | 2019-04-09 18:29 | Electrocardiograph Report ---
[address] [place] [address] Test Date: 2019-04-07 Pat Name: Shanita Arteaga Department: 112 Room: 04 Gender: F Extracorporeal Technician: : 1955 Requested By: Richard Woods Order Number: [id number] Reading MD: Jefe Ashraf Measurements Intervals [place] Rate: 117 P: 82 ID: [id number] QRS: -55 QRSD: 157 T: 103 QT: 368 QTc: 438 Interpretive Statements SINUS TACHYCARDIA WITH FREQUENT SUPRAVENTRICULAR PREMATURE COMPLEXES RIGHT BUNDLE BRANCH BLOCK LEFT VENTRICULAR HYPERTROPHY AND ST-T CHANGE INFERIOR MYOCARDIAL INFARCTION, OF INDETERMINATE AGE Electronically Signed On 04-09-2019 16:29:24 EDT by Jefe Ashraf
--- NOTE | 2019-04-10 08:54 | Electrocardiograph Report ---
[address] [place], [place] [address] Test Date: 2019-04-08 Pat Name: Shanita Arteaga Department: 109 Room: 04 Gender: F Yield Loss Inspector: : 1955 Requested By: Richard Woods Order Number: [id number] Reading MD: Onur Dc Measurements Intervals [place] Rate: 119 P: 81 ND: 159 QRS: -57 QRSD: 154 T: 95 QT: 350 QTc: 420 Interpretive Statements SINUS TACHYCARDIA right bundle-branch block, left axis deviation LEFT VENTRICULAR HYPERTROPHY AND ST-T CHANGE INFERIOR MYOCARDIAL INFARCTION lateral myocardial infarction- age undetermined Electronically Signed On 04-10-2019 8:52:15 EDT by Onur Dc
== END 2019-04-08 12:17 | disposition short-term general hospital (02) | DRG 871 ==
LOC: 2ANU 12:02 → EMEROOARM 12:02 → SUATTDRO 13:52 → 2ANU 14:17 → SUATTDRO 03-31 07:36 → ICNU 04-08 00:22
PROVIDERS: ADMIT Internal Medicine; ATTEND Internal Medicine